=== PATIENT | female | born 1940 | race Caucasian/White ===

== ENCOUNTER 2017-06-22 13:40 | Inpatient (IN) | payer MEDICARE, OTHER ==
[2017-06-22] MEDS ORDERED: Furosemide 20 MG/2 ML VIAL IVPUSH ONE (14:39)
--- NOTE | 2017-06-22 15:11 | PCM.HP ---
H&P History of Present Illness - General Date of Service: 06/22/17 Admit Problem/Dx: Admission Diagnosis/Problem Admission Diagnosis/Problem Pneumonia COPD Pulmonary Edema Tachycardia Source of Information: Patient History Limitations: Reports: No Limitations - History of Present Illness Onset of Symptoms: Reports: Sudden Symptom Onset Date: 06/21/17 Duration of Symptoms: Reports: Hour(s): (started feeling some sore throat, racing heart and chest congestion and pressure last night) Location: Reports: Chest Quality: Reports: Burning (describes chest pressure with "burning low in my throat") Severity: Moderate Improves with: Reports: Rest Worsens with: Reports: Movement Context: Reports: Sick Contact (significant other hospitalized with pneumonia) Associated Symptoms: Reports: Cough, Fever/Chills, Shortness of Breath - Related Data Allergies/Adverse Reactions: Allergies Allergy/AdvReac Type Severity Reaction Status Date / Time iopamidol [From Isovue-M] Allergy Mild Rash Verified 12/27/15 12:09 Home Medications: Home Meds Aspirin 1 tab PO BID 12/27/15 [History] Ipratropium/Albuterol Sulfate [Iprat-Albut 0.5-3(2.5) mg/3 ml] 1 ml INH QID PRN 12/27/15 [History] Multivitamin [Multi-Vitamin Daily] 1 tab PO DAILY 12/27/15 [History] buPROPion [Wellbutrin XL] 150 mg PO DAILY 12/27/15 [History] Albuterol/Ipratropium [DuoNeb 3.0-0.5 MG/3 ML] 3 ml NEB Q4HRRT PRN #30 neb 12/30 [Rx] Furosemide [Lasix] 20 mg PO DAILY #30 tablet 12/31/15 [Rx] Spironolactone [Aldactone] 25 mg PO DAILY #30 tablet 12/31/15 [Rx] Past Medical History HEENT History: Reports: Impaired Vision Cardiovascular History: Reports: Blood Clots/VTE/DVT Respiratory History: Reports: COPD Other Respiratory History: Lung biopsy in 1998, non-maliginant Psychiatric History: Reports: Depression - Past Surgical History Cardiovascular Surgical History: Reports: Other (See Below) Social & Family History - Tobacco Use Smoking Status *Q: Former Smoker Years of Tobacco use: 45 Packs/Tins Daily: 1 Used Tobacco, but Quit: Yes Month Tobacco Last Used: 1 - Caffeine Use Caffeine Use: Reports: Coffee - Recreational Drug Use Recreational Drug Use: No H&P Review of Systems - Review of Systems: Review Of Systems: See Below General: Reports: No Symptoms, Fever, Chills HEENT: Reports: No Symptoms Pulmonary: Reports: Shortness of Breath, Cough Cardiovascular: Reports: Chest Pain ("pressure, congestion"), Palpitations ( "heart racing") Gastrointestinal: Reports: No Symptoms Genitourinary: Reports: No Symptoms Musculoskeletal: Reports: No Symptoms Skin: Reports: No Symptoms Psychiatric: Reports: No Symptoms Neurological: Reports: No Symptoms Hematologic/Lymphatic: Reports: No Symptoms Immunologic: Reports: No Symptoms Exam - Exam Exam: See Below - Vital Signs Vital Signs: Last Vital Signs Temp 99.6 F 06/22/17 14:31 Pulse 151 H 06/22/17 14:31 Resp BP 118/73 06/22/17 14:31 Pulse Ox 96 06/22/17 14:34 Weight: 171 lb 1.6 oz - Exam Quality Assessment: Supplemental Oxygen (continuous home oxygen) General: Alert, Oriented, 4 HEENT: EOMI, Hearing Intact, Mucosa Moist & [place] Neck: Supple, Trachea Midline, 2 Lungs: Decreased Breath Sounds, Crackles (faint bibasilar crackles) Cardiovascular: Tachycardia GI/Abdominal Exam: Normal Bowel Sounds, Soft, Non-Tender (Female) Exam: Deferred Rectal (Female) Exam: Deferred Back Exam: Normal Inspection Extremities: Pedal Edema (mild non-pitting) Neuro Extensive - Mental Status: Alert, Oriented x3, Normal Mood/Affect, Normal Cognition, Memory Intact Psychiatric: Alert, Normal Affect, Normal Mood EKG INTERPRETATION EKG Date: 06/22/17 Rhythm: Other (sinus tachycardia) [employer]: RAD-Right [employer] Deviation P-Wave: Present EKG Interpretation Comments: Troponin WNL at 0.005, tachycardia most likely secondary to pneumonia. *Q Meaningful Use (ADM) - VTE *Q VTE Criteria *Q: - Stroke *Q Stroke Criteria *Q: - AMI *Q AMI Criteria *Q: - Problem List (1) Pneumonia SNOMED Code(s): 279143744 ICD Code: J18.9 - PNEUMONIA, UNSPECIFIED ORGANISM Status: Acute Priority : High Current Visit: Yes Qualifiers: Pneumonia type: due to unspecified organism Laterality: bilateral Lung location: unspecified part of lung Qualified Code(s): J18.9 - Pneumonia, unspecified organism (2) Tachycardia SNOMED Code(s): 9068214 ICD Code: R00.0 - TACHYCARDIA, UNSPECIFIED Status: Acute Priority: High Current Visit: Yes Problem List Initiated/Reviewed/Updated: Yes Orders Last 24hrs: Active Orders 24 hr Category Date Time Status Patient Status [ADT] Routine ADT 06/22/17 14:31 Active Ambulate [RC] ASDIRECTED Care 06/22/17 14:31 Active Ambulate [RC] PER UNIT ROUTINE Care 06/22/17 14:35 Active Antiembolic Devices [RC] PER UNIT ROUTINE Care 06/22/17 14:36 Active Cardiac Monitoring [RC] CONTINUOUS Care 06/22/17 14:34 Active Height and Weight [RC] DAILY Care 06/22/17 14:31 Active Intake and Output [RC] QSHIFT Care 06/22/17 14:34 Active May Shower [RC] ASDIRECTED Care 06/22/17 14:31 Active Oxygen Therapy [RC] PRN Care 06/22/17 14:31 Active Pulse Oximetry [RC] PRN Care 06/22/17 14:34 Active Up ad Denise [RC] ASDIRECTED Care 06/22/17 14:31 Active VTE/DVT Education [RC] PER UNIT ROUTINE Care 06/22/17 14:31 Active Vital Signs [RC] Q4H Care 06/22/17 14:31 Active OT Evaluation and Treatment [CONS] Routine Cons 06/22/17 14:31 Active PT Evaluation and Treatment [CONS] Routine Cons 06/22/17 14:31 Active Regular Diet [DIET] Diet 06/22/17 Dinner Active Chest 2V [CR] Routine Exams 06/22/17 13:45 Taken C-REACTIVE PROTEIN [CHEM] AM Lab 06/23/17 05:11 Ordered C-REACTIVE PROTEIN [CHEM] AM Lab 06/24/17 05:11 Ordered C-REACTIVE PROTEIN [CHEM] AM Lab 06/25/17 05:11 Ordered CBC WITH AUTO DIFF [HEME] AM Lab 06/23/17 05:11 Ordered CBC WITH AUTO DIFF [HEME] AM Lab 06/24/17 05:11 Ordered CBC WITH AUTO DIFF [HEME] AM Lab 06/25/17 05:11 Ordered COMPREHENSIVE METABOLIC PN,CMP [CHEM] AM Lab 06/23/17 05:11 Ordered COMPREHENSIVE METABOLIC PN,CMP [CHEM] AM Lab 06/24/17 05:11 Ordered COMPREHENSIVE METABOLIC PN,CMP [CHEM] AM Lab 06/25/17 05:11 Ordered CULTURE BLOOD [BC] Stat Lab 06/22/17 14:36 Ordered CULTURE BLOOD [BC] Stat Lab 06/22/17 14:45 Received MYCOPLASMA IGM RAPID [MREF] Urgent Lab 06/22/17 14:45 Received PRO B-TYPE NATRIUR PEPT,BNPPRO [CHEM] DAILY Lab 06/23/17 05:11 Ordered PRO B-TYPE NATRIUR PEPT,BNPPRO [CHEM] DAILY Lab 06/24/17 05:11 Ordered PRO B-TYPE NATRIUR PEPT,BNPPRO [CHEM] DAILY Lab 06/25/17 05:11 Ordered TROPONIN I [CHEM] Routine Lab 06/23/17 05:11 Ordered Azithromycin [Zithromax] 500 mg Med 06/22/17 16:00 Active Sodium Chloride 0.9% [Normal Saline] 250 ml IV Q24H Furosemide [Lasix] Med 06/23/17 08:00 Active 20 mg IVPUSH DAILY Sodium Chloride 0.9% [Saline Flush] Med 06/22/17 14:31 Active 10 ml FLUSH ASDIRECTED PRN cefTAZidime [Fortaz] Med 06/22/17 16:00 Pending 1 gm IVPUSH Q8HR Antiembolic Hose [OM.PC] Per Unit Routine Oth 06/22/17 14:35 Ordered Blood Culture x2 Reflex Set [OM.PC] Stat Oth 06/22/17 14:31 Ordered Saline Lock Insert [OM.PC] Routine Oth 06/22/17 14:31 Ordered Resuscitation Status Routine Resus Stat 06/22/17 14:31 Ordered Medication Orders Ceftazidime (Fortaz) 1 gm IVPUSH Q8HR ALEJANDRO Furosemide (Lasix) 20 mg IVPUSH DAILY ALEJANDRO Azithromycin 500 mg/ Sodium (Chloride) 250 mls @ 250 mls/hr IV Q24H ALEJANDRO Sodium Chloride (Saline Flush) 10 ml FLUSH ASDIRECTED PRN PRN Reason: Keep Vein Open Assessment/Plan Comment:: 06-22-17 Salvatore Torres PA-C Initially evaluated at [facility] [place], where she had come in for c/o ST and chest congestion. She was found to be tachycardia with HR 150 bpm, and then did say she felt the point when her heart started racing last night. She thought she was perhaps coming down with pneumonia, because her SO has been sick for weeks and was finally admitted with pneumonia. Initially denied any CP but then did say her low throat feels like it's "burning" and she feels pressure and congestion in her chest. T99.7 in the clinic, O2 sats from 91-94% on oxygen ( continuous at home). After workup admitting IP to Dr. Hou with pneumonia, COPD exacerbation, pulmonary edema and tachycardia. Blood cultures x 2 ordered, as well as mycoplasma screen. One time dose of IV Lasix 20 mg now, then 20mg QAM to start tomorrow morning. IV Fortaz and Zithromax. Will monitor on telemetry, and repeat troponin and EKG in the am. Dr. Hou consulted at time of admit.
[2017-06-22] MEDS ORDERED: Metoprolol Tartrate 5 MG/5 ML SDV IVPUSH ONE (15:23)
[2017-06-22] MEDS: Sodium Chloride 0.9% 10 ML Syringe FLUSH PRN ×4 (15:35→17:24)
[2017-06-22] MEDS: cefTAZidime 1 GM Vial IVPUSH SCH (15:35)
[2017-06-22] MEDS ORDERED: Azithromycin 500 MG in Sodium Chloride 0.9% 250 ML IV SCH (16:00)
[2017-06-22] MEDS ORDERED: Albuterol 0.083% 2.5 MG/3 ML Neb Soln NEB PRN (18:00)
[2017-06-22] MEDS: Aspirin 325 MG Tab PO SCH (18:58)
[2017-06-22] MEDS ORDERED: Metoprolol Succinate 25 MG Tab.ER PO SCH (20:00)
[2017-06-22] MEDS: Albuterol/Ipratropium 3.0-0.5 MG/3 ML Neb Soln NEB SCH (20:31)
[2017-06-22] MEDS: Sodium Chloride 0.9% 10 ML Syringe FLUSH SCH (20:32)
[2017-06-23] MEDS: Sodium Chloride 0.9% 10 ML Syringe FLUSH PRN ×3 (01:32→13:16)
[2017-06-23] MEDS: cefTAZidime 1 GM Vial IVPUSH SCH ×3 (01:32→19:36)
[2017-06-23 07:35] LABS: CHLORIDE,CL 99 mmol/L (98-107); SODIUM,NA 136 mmol/L (136-145)
[2017-06-23] MEDS: Furosemide 20 MG/2 ML VIAL IVPUSH SCH (08:34)
[2017-06-23] MEDS: Albuterol/Ipratropium 3.0-0.5 MG/3 ML Neb Soln NEB SCH ×2 (08:34→13:02)
[2017-06-23] MEDS: Sodium Chloride 0.9% 10 ML Syringe FLUSH SCH ×2 (08:34→19:37)
[2017-06-23] MEDS: Aspirin 325 MG Tab PO SCH (08:34)
[2017-06-23] MEDS: Spironolactone 25 MG Tab PO SCH (08:34)
[2017-06-23] MEDS: Azithromycin 500 MG in Sodium Chloride 0.9% 250 ML IV SCH (11:30)
[2017-06-23] MEDS ORDERED: Metoprolol Tartrate 5 MG/5 ML SDV IVPUSH ONE (12:00)
[2017-06-23] MEDS ORDERED: Digoxin 500 MCG/2 ML Amp IVPUSH ONE ×2 (12:15→20:00)
[2017-06-23] MEDS ORDERED: Albuterol/Ipratropium 3.0-0.5 MG/3 ML Neb Soln NEB PRN (12:25)
[2017-06-23] MEDS ORDERED: Enoxaparin 40 MG/0.4 ML Syringe SUBCUT SCH (12:30)
[2017-06-23] MEDS ORDERED: Enoxaparin 30 MG/0.3 ML Syringe SUBCUT SCH (12:30)
[2017-06-23] MEDS: Sodium Chloride 0.9% Inhalation Soln 3 ML Neb INH SCH ×2 (16:14→19:37)
--- NOTE | 2017-06-23 17:53 | PCM.PN ---
- General Info Date of Service: 06/23/17 Admission Dx/Problem (Free Text): Admission Diagnosis/Problem Admission Diagnosis/Problem Pneumonia COPD Pulmonary Edema Tachycardia Functional Status: Reports: Pain Controlled - Review of Systems General: Reports: Fever HEENT: Reports: No Symptoms Pulmonary: Reports: No Symptoms Cardiovascular: Reports: No Symptoms Gastrointestinal: Reports: No Symptoms Genitourinary: Reports: No Symptoms Musculoskeletal: Reports: No Symptoms Skin: Reports: No Symptoms Neurological: Reports: No Symptoms Psychiatric: Reports: No Symptoms - Patient Data Vitals - Most Recent: Last Vital Signs Temp 97.7 F 06/23/17 16:53 Pulse 115 H 06/23/17 16:00 Resp 28 H 06/23/17 16:00 BP 110/68 06/23/17 16:00 Pulse Ox 95 06/23/17 16:00 Weight - Most Recent: 171 lb 1.612 oz I&O - Last 24 Hours: Intake & Output 06/23/17 06/23/17 06/23/17 06:59 14:59 22:59 Intake Total 1690 Balance 1690 Lab Results Last 24 Hours: Laboratory Results - last 24 hr 06/23/17 06/23/17 Range/Units 06:45 06:45 WBC 7.4 (4.0-10.2) K/uL RBC 4.50 (3.77-5.09) M/uL Hgb 13.0 D (11.7-15.5) g/dL Hct 39.2 (34.0-46.0) % MCV 87.1 D (84.0-98.0) fL MCH 28.9 (28.2-33.3) pg MCHC 33.2 (31.7-36.0) g/dL RDW 14.0 (11.2-14.1) % Plt Count 186 (150-350) K/uL Neut % (Auto) 73.2 (45.0-80.0) % Lymph % (Auto) 15.2 (10.0-50.0) % [place] % (Auto) 11.1 (2.0-14.0) % Eos % (Auto) 0.4 (0.0-5.0) % Baso % (Auto) 0.1 (0.0-2.0) % Neut # (Auto) 5.42 (1.40-7.00) K/uL Lymph # (Auto) 1.13 (0.50-3.50) K/uL [place] # (Auto) 0.82 (0.00-1.00) K/uL Eos # (Auto) 0.03 (0.00-0.50) K/uL Baso # (Auto) 0.01 (0.00-0.20) K/uL Sodium 136 (136-145) mmol/L Potassium 3.7 (3.5-5.1) mmol/L Chloride 99 (98-107) mmol/L Carbon Dioxide 26.9 (21.0-32.0) mmol/L BUN 15 (7-18) mg/dL Creatinine 0.83 (0.51-1.17) mg/dL Est Cr Clr Drug Dosing 53.42 mL/min Estimated GFR (MDRD) > 60 mL/min Glucose 106 (74-106) mg/dL Calcium 8.7 (8.5-10.1) mg/dL Total Bilirubin 0.5 (0.2-1.0) mg/dL AST 18 (15-37) U/L ALT 15 (12-78) U/L Alkaline Phosphatase 57 (46-116) IU/L Troponin I 0.010 (0.000-0.056) ng/mL C-Reactive Protein 2.8 H (<=0.9) mg/dL NT-Pro-B Natriuret Pep 4443 H (0-125) pg/mL Total Protein 7.1 (6.4-8.2) g/dL Albumin 3.2 L (3.4-5.0) g/dL Maksim Results Last 24 Hours: Microbiology 06/22/17 15:08 Aerobic Blood Culture - Preliminary Blood - Venous - Lab Draw NO GROWTH AFTER 1 DAY Anaerobic Blood Culture - Preliminary NO GROWTH AFTER 1 DAY 06/22/17 14:45 Aerobic Blood Culture - Preliminary Blood - Venous NO GROWTH AFTER 1 DAY Anaerobic Blood Culture - Preliminary NO GROWTH AFTER 1 DAY Med Orders - Current: Current Medications Albuterol (Proventil Neb Soln) 2.5 mg NEB Q4HRRT PRN PRN Reason: Dyspnea Last Admin: 06/23/17 01:44 Dose: 2.5 mg Albuterol/Ipratropium (Duoneb 3.0-0.5 Mg/3 Ml) 3 ml NEB QIDRT PRN PRN Reason: Dyspnea Aspirin (Aspirin) 81 mg PO DAILY [facility] Ceftazidime (Fortaz) 1 gm IVPUSH Q12HR [facility] Digoxin (Lanoxin) 250 mcg IVPUSH ONETIME ONE Stop: 06/23/17 20:01 Furosemide (Lasix) 20 mg IVPUSH DAILY [facility] Last Admin: 06/23/17 08:34 Dose: 20 mg Azithromycin 500 mg/ Sodium (Chloride) 250 mls @ 250 mls/hr IV DAILY@1200 [facility] Stop: 06/24/17 12:59 Last Admin: 06/23/17 11:30 Dose: 250 mls/hr Sodium Chloride (Saline Flush) 10 ml FLUSH ASDIRECTED PRN PRN Reason: Keep Vein Open Last Admin: 06/23/17 13:16 Dose: 10 ml Sodium Chloride (Saline Flush) 10 ml FLUSH Q12HR [facility] Last Admin: 06/23/17 08:34 Dose: 10 ml Sodium Chloride (Sodium Chloride 0.9%) 3 ml INH QIDRT [facility] Last Admin: 06/23/17 16:14 Dose: 3 ml Spironolactone (Aldactone) 25 mg PO DAILY [facility] Last Admin: 06/23/17 08:34 Dose: 25 mg Warfarin Sodium (Coumadin) 7.5 mg PO ONETIME ONE Stop: 06/23/17 20:01 Discontinued Medications Albuterol/Ipratropium (Duoneb 3.0-0.5 Mg/3 Ml) 3 ml NEB QIDRT [facility] Last Admin: 06/23/17 13:02 Dose: Not Given Aspirin (Aspirin) 325 mg PO BID [facility] Last Admin: 06/23/17 08:34 Dose: 325 mg Ceftazidime (Fortaz) 1 gm IVPUSH Q8HR [facility] Last Admin: 06/23/17 08:34 Dose: 1 gm Digoxin (Lanoxin) 500 mcg IVPUSH ONETIME ONE Stop: 06/23/17 12:16 Last Admin: 06/23/17 13:15 Dose: 500 mcg Enoxaparin Sodium (Lovenox) 30 mg SUBCUT DAILY [facility] Enoxaparin Sodium (Lovenox) 40 mg SUBCUT DAILY [facility] Last Admin: 06/23/17 13:16 Dose: 40 mg Furosemide (Lasix) 20 mg IVPUSH ONETIME ONE Stop: 06/22/17 14:40 Last Admin: 06/22/17 15:41 Dose: 20 mg Azithromycin 500 mg/ Sodium (Chloride) 250 mls @ 250 mls/hr IV Q24H [facility] Last Admin: 06/22/17 15:55 Dose: 250 mls/hr Metoprolol Succinate (Toprol Xl) 25 mg PO BEDTIME [facility] Last Admin: 06/22/17 20:31 Dose: 25 mg Metoprolol Tartrate (Lopressor) 5 mg IVPUSH ONETIME ONE Stop: 06/22/17 15:24 Last Admin: 06/22/17 15:48 Dose: 5 mg Metoprolol Tartrate (Lopressor) 5 mg IVPUSH ONETIME ONE Stop: 06/23/17 12:01 Last Admin: 06/23/17 13:01 Dose: Not Given - Exam Quality Assessment: Supplemental Oxygen General: Alert, Cooperative, No Acute Distress HEENT: Mucous Membr. Moist/[place] Neck: Trachea Midline, No JVD Lungs: Normal Respiratory Effort, Decreased Breath Sounds Cardiovascular: Irregular Rhythm, Tachycardia GI/Abdominal Exam: Soft, Non-Tender, No Distention (Female) Exam: Deferred Back Exam: Normal Inspection Extremities: Normal Inspection, Non-Tender, No Pedal Edema Skin: Warm, Dry, Intact Neurological: No New Focal Deficit Psy/Mental Status: Alert, Normal Affect, Normal Mood - Problem List & Annotations (1) Paroxysmal atrial fibrillation with rapid ventricular response SNOMED Code(s): 510576875 Code(s): I48.0 - PAROXYSMAL ATRIAL FIBRILLATION Status: Acute Priority: High Current Visit: Yes (2) Pneumonia SNOMED Code(s): 832802118 Code(s): J18.9 - PNEUMONIA, UNSPECIFIED ORGANISM Status: Acute Priority: High Current Visit: Yes Qualifiers: Pneumonia type: due to unspecified organism Laterality: bilateral Lung location: unspecified part of lung Qualified Code(s): J18.9 - Pneumonia, unspecified organism (3) Tachycardia SNOMED Code(s): 5683521 Code(s): R00.0 - TACHYCARDIA, UNSPECIFIED Status: Acute Priority: High Current Visit: Yes (4) Cardiomegaly SNOMED Code(s): 0889538 Code(s): I51.7 - CARDIOMEGALY Status: Acute Priority: High Current Visit: No (5) Hypoxia SNOMED Code(s): 549593015 Code(s): R09.02 - HYPOXEMIA Status: Acute Priority: High Current Visit : No (6) Pulmonary edema SNOMED Code(s): 72270389 Code(s): J81.1 - CHRONIC PULMONARY EDEMA Status: Acute Priority: High Current Visit: No Qualifiers: Chronicity: acute Qualified Code(s): J81.0 - Acute pulmonary edema (7) COPD (chronic obstructive pulmonary disease) SNOMED Code(s): 79615308 Code(s): J44.9 - CHRONIC OBSTRUCTIVE PULMONARY DISEASE, UNSPECIFIED Status : Chronic Priority: Medium Current Visit: No Qualifiers: COPD type: unspecified COPD Qualified Code(s): J44.9 - Chronic obstructive pulmonary disease, unspecified - Problem List Review Problem List Initiated/Reviewed/Updated: Yes - My Orders Last 24 Hours: My Active Orders 06/22/17 18:00 RT Aerosol Therapy [RC] ASDIRECTED Albuterol [Proventil Neb Soln] 2.5 mg NEB Q4HRRT PRN 06/22/17 20:00 RT Aerosol Therapy [RC] 08,12,16,20 Sodium Chloride 0.9% [Saline Flush] 10 ml FLUSH Q12HR 06/23/17 08:00 Spironolactone [Aldactone] 25 mg PO DAILY 06/23/17 12:00 Azithromycin [Zithromax] 500 mg Sodium Chloride 0.9% [Normal Saline] 250 ml IV DAILY@1200 06/23/17 12:25 Albuterol/Ipratropium [DuoNeb 3.0-0.5 MG/3 ML] 3 ml NEB QIDRT PRN 06/23/17 16:00 Sodium Chloride 0.9% 3 ml INH QIDRT 06/23/17 20:00 Digoxin [Lanoxin] 250 mcg IVPUSH ONETIME ONE Warfarin [Coumadin] 7.5 mg PO ONETIME ONE cefTAZidime [Fortaz] 1 gm IVPUSH Q12HR 06/24/17 05:11 EKG Documentation Completion [RC] ASDIRECTED DIGOXIN [CHEM] Routine INR,PT,PROTHROMBIN TIME [COAG] Routine PTT,PARTIAL THROMBOPLSTIN TIME [COAG] Routine EKG 12 Lead [EK] Routine 06/24/17 08:00 Aspirin 81 mg PO DAILY - Plan Plan:: 06-22-17 Salvatore Torres PA-C [place] [facility] [place] had come in for c/o ST and chest congestion. She was found to be tachycardia with HR 150 bpm, and then did say she felt the point when her heart started racing last night. She thought she was perhaps coming down with pneumonia, because her SO has been sick for weeks and was finally admitted with pneumonia. Initially denied any CP but then did say her low throat feels like it's "burning" and she feels pressure and congestion in her chest. T99.7 in the clinic, O2 sats from 91-94% on oxygen ( continuous at home). After workup admitting IP to Dr. Hou with pneumonia, COPD exacerbation, pulmonary edema and tachycardia. Blood cultures x 2 ordered, as well as mycoplasma screen. One time dose of IV Lasix 20 mg now, then 20mg QAM to start tomorrow morning. IV Fortaz and Zithromax. Will monitor on telemetry, and repeat troponin and EKG in the am. Dr. Hou consulted at time of admit. 06/23/17 Ameya Sanchez MD Feels okay. Elevated temperature this afternoon. Continue IV antibiotics. Digitalizing for atrial fibrillation with RVR and start anticoagulation.
[2017-06-23] MEDS ORDERED: Warfarin 2.5 MG Tab PO ONE (20:00)
[2017-06-23] MEDS ORDERED: Acetaminophen 325 MG Tab PO PRN (20:03)
[2017-06-24 07:22] LABS: CHLORIDE,CL 101 mmol/L (98-107); SODIUM,NA 139 mmol/L (136-145)
[2017-06-24] MEDS ORDERED: Aspirin 325 MG Tab PO SCH (08:00)
[2017-06-24] MEDS: Furosemide 20 MG/2 ML VIAL IVPUSH SCH (08:39)
[2017-06-24] MEDS: Spironolactone 25 MG Tab PO SCH (08:39)
[2017-06-24] MEDS: Sodium Chloride 0.9% 10 ML Syringe FLUSH SCH ×2 (08:40→20:02)
[2017-06-24] MEDS: Sodium Chloride 0.9% Inhalation Soln 3 ML Neb INH SCH ×4 (08:40→20:02)
[2017-06-24] MEDS: cefTAZidime 1 GM Vial IVPUSH SCH ×2 (08:40→20:02)
[2017-06-24] MEDS: Aspirin 81 MG Tab.Chew PO SCH (08:54)
[2017-06-24] MEDS: Sodium Chloride 0.9% 10 ML Syringe FLUSH PRN ×2 (12:12→13:43)
[2017-06-24] MEDS: Azithromycin 500 MG in Sodium Chloride 0.9% 250 ML IV SCH (12:12)
[2017-06-24] MEDS ORDERED: Digoxin 500 MCG/2 ML Amp IVPUSH ONE (13:00)
[2017-06-24] MEDS ORDERED: Warfarin 2.5 MG Tab PO ONE (14:00)
--- NOTE | 2017-06-24 14:13 | PCM.PN ---
- General Info Date of Service: 06/24/17 Admission Dx/Problem (Free Text): Admission Diagnosis/Problem Admission Diagnosis/Problem Pneumonia COPD Pulmonary Edema Tachycardia Functional Status: Reports: Pain Controlled - Review of Systems General: Reports: Fever HEENT: Reports: No Symptoms Pulmonary: Reports: Cough Cardiovascular: Reports: Palpitations Gastrointestinal: Reports: No Symptoms Genitourinary: Reports: No Symptoms Musculoskeletal: Reports: No Symptoms Skin: Reports: No Symptoms Neurological: Reports: No Symptoms Psychiatric: Reports: No Symptoms - Patient Data Vitals - Most Recent: Last Vital Signs Temp 97.5 F 06/24/17 11:54 Pulse 116 H 06/24/17 11:54 Resp 20 06/24/17 11:54 BP 114/67 06/24/17 11:54 Pulse Ox 94 L 06/24/17 11:54 Weight - Most Recent: 169 lb 8 oz I&O - Last 24 Hours: Intake & Output 06/23/17 06/24/17 06/24/17 22:59 06:59 14:59 Intake Total 455 082 0540 Output Total 750 Balance 480 360 950 Lab Results Last 24 Hours: Laboratory Results - last 24 hr 06/24/17 06/24/17 06/24/17 Range/Units 06:22 06:22 06:22 WBC 5.5 (4.0-10.2) K/uL RBC 4.66 (3.77-5.09) M/uL Hgb 13.5 (11.7-15.5) g/dL Hct 40.8 (34.0-46.0) % MCV 87.6 (84.0-98.0) fL MCH 29.0 (28.2-33.3) pg MCHC 33.1 (31.7-36.0) g/dL RDW 14.0 (11.2-14.1) % Plt Count 179 (150-350) K/uL Neut % (Auto) 51.3 (45.0-80.0) % Lymph % (Auto) 24.5 (10.0-50.0) % [place] % (Auto) 15.8 H (2.0-14.0) % Eos % (Auto) 8.2 H (0.0-5.0) % Baso % (Auto) 0.2 (0.0-2.0) % Neut # (Auto) 2.84 (1.40-7.00) K/uL Lymph # (Auto) 1.35 (0.50-3.50) K/uL [place] # (Auto) 0.87 (0.00-1.00) K/uL Eos # (Auto) 0.45 (0.00-0.50) K/uL Baso # (Auto) 0.01 (0.00-0.20) K/uL PT 10.8 (9.8-11.7) SEC INR 1.0 APTT 26.5 (22.1-29.8) SEC Sodium 139 (136-145) mmol/L Potassium 3.5 (3.5-5.1) mmol/L Chloride 101 (98-107) mmol/L Carbon Dioxide 28.0 (21.0-32.0) mmol/L BUN 10 (7-18) mg/dL Creatinine 0.68 (0.51-1.17) mg/dL Est Cr Clr Drug Dosing 65.21 mL/min Estimated GFR (MDRD) > 60 mL/min Glucose 103 (74-106) mg/dL Calcium 8.7 (8.5-10.1) mg/dL Total Bilirubin 0.6 (0.2-1.0) mg/dL AST 20 (15-37) U/L ALT 13 (12-78) U/L Alkaline Phosphatase 57 (46-116) IU/L C-Reactive Protein 2.8 H (<=0.9) mg/dL NT-Pro-B Natriuret Pep 3170 H (0-125) pg/mL Total Protein 7.1 (6.4-8.2) g/dL Albumin 3.1 L (3.4-5.0) g/dL TSH, Ultra Sensitive 3.313 (0.358-3.740) mIU/mL Digoxin 1.04 (0.90-2.00) ng/mL Maksim Results Last 24 Hours: Microbiology 06/22/17 14:45 Mycoplasma Serology - Final Blood 06/22/17 15:08 Aerobic Blood Culture - Preliminary Blood - Venous - Lab Draw NO GROWTH AFTER 1 DAY Anaerobic Blood Culture - Preliminary NO GROWTH AFTER 1 DAY 06/22/17 14:45 Aerobic Blood Culture - Preliminary Blood - Venous NO GROWTH AFTER 1 DAY Anaerobic Blood Culture - Preliminary NO GROWTH AFTER 1 DAY Med Orders - Current: Current Medications Acetaminophen (Tylenol) 650 mg PO Q4H PRN PRN Reason: Pain/Fever Last Admin: 06/23/17 20:11 Dose: 650 mg Albuterol (Proventil Neb Soln) 2.5 mg NEB Q4HRRT PRN PRN Reason: Dyspnea Last Admin: 06/23/17 01:44 Dose: 2.5 mg Albuterol/Ipratropium (Duoneb 3.0-0.5 Mg/3 Ml) 3 ml NEB QIDRT PRN PRN Reason: Dyspnea Aspirin (Aspirin) 81 mg PO DAILY [facility] Last Admin: 06/24/17 08:54 Dose: 81 mg Ceftazidime (Fortaz) 1 gm IVPUSH Q12HR [facility] Last Admin: 06/24/17 08:40 Dose: 1 gm Furosemide (Lasix) 20 mg IVPUSH DAILY [facility] Last Admin: 06/24/17 08:39 Dose: 20 mg Metoprolol Tartrate (Lopressor) 12.5 mg PO Q12HR [facility] Sodium Chloride (Saline Flush) 10 ml FLUSH ASDIRECTED PRN PRN Reason: Keep Vein Open Last Admin: 06/24/17 13:43 Dose: 10 ml Sodium Chloride (Saline Flush) 10 ml FLUSH Q12HR [facility] Last Admin: 06/24/17 08:40 Dose: 10 ml Sodium Chloride (Sodium Chloride 0.9%) 3 ml INH QIDRT [facility] Last Admin: 06/24/17 12:12 Dose: 3 ml Spironolactone (Aldactone) 25 mg PO DAILY [facility] Last Admin: 06/24/17 08:39 Dose: 25 mg Discontinued Medications Albuterol/Ipratropium (Duoneb 3.0-0.5 Mg/3 Ml) 3 ml NEB QIDRT [facility] Last Admin: 06/23/17 13:02 Dose: Not Given Aspirin (Aspirin) 325 mg PO BID [facility] Last Admin: 06/23/17 08:34 Dose: 325 mg Aspirin (Aspirin) 81 mg PO DAILY [facility] Last Admin: 06/24/17 08:54 Dose: Not Given Ceftazidime (Fortaz) 1 gm IVPUSH Q8HR [facility] Last Admin: 06/23/17 08:34 Dose: 1 gm Digoxin (Lanoxin) 500 mcg IVPUSH ONETIME ONE Stop: 06/23/17 12:16 Last Admin: 06/23/17 13:15 Dose: 500 mcg Digoxin (Lanoxin) 250 mcg IVPUSH ONETIME ONE Stop: 06/23/17 20:01 Last Admin: 06/23/17 19:37 Dose: 250 mcg Digoxin (Lanoxin) 125 mcg IVPUSH ONETIME ONE Stop: 06/24/17 13:01 Last Admin: 06/24/17 13:47 Dose: 125 mcg Enoxaparin Sodium (Lovenox) 30 mg SUBCUT DAILY [facility] Enoxaparin Sodium (Lovenox) 40 mg SUBCUT DAILY [facility] Last Admin: 06/23/17 13:16 Dose: 40 mg Furosemide (Lasix) 20 mg IVPUSH ONETIME ONE Stop: 06/22/17 14:40 Last Admin: 06/22/17 15:41 Dose: 20 mg Azithromycin 500 mg/ Sodium (Chloride) 250 mls @ 250 mls/hr IV Q24H [facility] Last Admin: 06/22/17 15:55 Dose: 250 mls/hr Azithromycin 500 mg/ Sodium (Chloride) 250 mls @ 250 mls/hr IV DAILY@1200 [facility] Stop: 06/24/17 12:59 Last Admin: 06/24/17 12:12 Dose: 250 mls/hr Metoprolol Succinate (Toprol Xl) 25 mg PO BEDTIME [facility] Last Admin: 06/22/17 20:31 Dose: 25 mg Metoprolol Tartrate (Lopressor) 5 mg IVPUSH ONETIME ONE Stop: 06/22/17 15:24 Last Admin: 06/22/17 15:48 Dose: 5 mg Metoprolol Tartrate (Lopressor) 5 mg IVPUSH ONETIME ONE Stop: 06/23/17 12:01 Last Admin: 06/23/17 13:01 Dose: Not Given Warfarin Sodium (Coumadin) 7.5 mg PO ONETIME ONE Stop: 06/23/17 20:01 Last Admin: 06/23/17 19:36 Dose: 7.5 mg Warfarin Sodium (Coumadin) 7.5 mg PO ONETIME ONE Stop: 06/24/17 14:01 Last Admin: 06/24/17 13:48 Dose: 7.5 mg - Exam Quality Assessment: Supplemental Oxygen, DVT Prophylaxis (starting coumadin) General: Alert, Cooperative, No Acute Distress HEENT: Mucous Membr. Moist/[place] Neck: Trachea Midline, No JVD Lungs: Normal Respiratory Effort, Decreased Breath Sounds Cardiovascular: Irregular Rhythm, Tachycardia GI/Abdominal Exam: Soft, Non-Tender, No Distention (Female) Exam: Deferred Back Exam: Normal Inspection Extremities: Normal Inspection, Non-Tender, No Pedal Edema Skin: Warm, Dry, Intact Neurological: No New Focal Deficit Psy/Mental Status: Alert, Normal Affect, Normal Mood - Problem List & Annotations (1) Paroxysmal atrial fibrillation with rapid ventricular response SNOMED Code(s): 750049895 Code(s): I48.0 - PAROXYSMAL ATRIAL FIBRILLATION Status: Acute Priority: High Current Visit: Yes (2) Pneumonia SNOMED Code(s): 223400361 Code(s): J18.9 - PNEUMONIA, UNSPECIFIED ORGANISM Status: Acute Priority: High Current Visit: Yes Qualifiers: Pneumonia type: due to unspecified organism Laterality: bilateral Lung location: unspecified part of lung Qualified Code(s): J18.9 - Pneumonia, unspecified organism (3) Tachycardia SNOMED Code(s): 4816959 Code(s): R00.0 - TACHYCARDIA, UNSPECIFIED Status: Acute Priority: High Current Visit: Yes (4) Cardiomegaly SNOMED Code(s): 4562244 Code(s): I51.7 - CARDIOMEGALY Status: Acute Priority: High Current Visit: No (5) Hypoxia SNOMED Code(s): 291215606 Code(s): R09.02 - HYPOXEMIA Status: Acute Priority: High Current Visit : No (6) Pulmonary edema SNOMED Code(s): 80526239 Code(s): J81.1 - CHRONIC PULMONARY EDEMA Status: Acute Priority: High Current Visit: No Qualifiers: Chronicity: acute Qualified Code(s): J81.0 - Acute pulmonary edema (7) COPD (chronic obstructive pulmonary disease) SNOMED Code(s): 36372621 Code(s): J44.9 - CHRONIC OBSTRUCTIVE PULMONARY DISEASE, UNSPECIFIED Status : Chronic Priority: Medium Current Visit: No Qualifiers: COPD type: unspecified COPD Qualified Code(s): J44.9 - Chronic obstructive pulmonary disease, unspecified - Problem List Review Problem List Initiated/Reviewed/Updated: Yes - My Orders Last 24 Hours: My Active Orders 06/23/17 16:00 Sodium Chloride 0.9% 3 ml INH QIDRT 02/28/18 20:00 cefTAZidime [Fortaz] 1 gm IVPUSH Q12HR 06/23/17 20:03 Acetaminophen [Tylenol] 650 mg PO Q4H PRN 06/24/17 05:11 EKG Documentation Completion [RC] ASDIRECTED 06/24/17 09:00 Aspirin 81 mg PO DAILY 06/24/17 20:00 Metoprolol Tartrate [Lopressor] 12.5 mg PO Q12HR - Plan Plan:: 06-22-17 Salvatore Torres PA-C Initially evaluated at [facility], where she had come in for c/o ST and chest congestion. She was found to be tachycardia with HR 150 bpm, and then did say she felt the point when her heart started racing last night. She thought she was perhaps coming down with pneumonia, because her SO has been sick for weeks and was finally admitted with pneumonia. Initially denied any CP but then did say her low throat feels like it's "burning" and she feels pressure and congestion in her chest. T99.7 in the clinic, O2 sats from 91-94% on oxygen ( continuous at home). After workup admitting IP to Dr. Hou with pneumonia, COPD exacerbation, pulmonary edema and tachycardia. Blood cultures x 2 ordered, as well as mycoplasma screen. One time dose of IV Lasix 20 mg now, then 20mg QAM to start tomorrow morning. IV Fortaz and Zithromax. Will monitor on telemetry, and repeat troponin and EKG in the am. Dr. Hou consulted at time of admit. 06/23/17 Ameya Sanchez MD Feels okay. Elevated temperature this afternoon. Continue IV antibiotics. Digitalizing for atrial fibrillation with RVR and start anticoagulation. 06/24/17 Ameya Sanchez MD Soaking sweat last night. Today still in atrial fibrillation with RVR (high 160) . Continue medical therapy.
[2017-06-24] MEDS: Metoprolol Tartrate 25 MG Tab PO SCH (20:02)
[2017-06-25 07:46] LABS: CHLORIDE,CL 102 mmol/L (98-107); SODIUM,NA 141 mmol/L (136-145)
[2017-06-25] MEDS: Aspirin 81 MG Tab.Chew PO SCH (08:49)
[2017-06-25] MEDS: Spironolactone 25 MG Tab PO SCH (08:49)
[2017-06-25] MEDS: Metoprolol Tartrate 25 MG Tab PO SCH (08:49)
[2017-06-25] MEDS: Furosemide 20 MG/2 ML VIAL IVPUSH SCH (08:50)
[2017-06-25] MEDS: Sodium Chloride 0.9% 10 ML Syringe FLUSH SCH (08:51)
[2017-06-25] MEDS: cefTAZidime 1 GM Vial IVPUSH SCH (08:51)
[2017-06-25] MEDS: Sodium Chloride 0.9% Inhalation Soln 3 ML Neb INH SCH ×2 (08:53→12:12)
[2017-06-25] MEDS ORDERED: Azithromycin 250 MG Tab PO ONE (13:30)
[2017-06-25 13:37] VITALS: BP 101/59
[2017-06-25] MEDS ORDERED: Warfarin 5 MG Tab PO ONE (14:17)
--- NOTE | 2017-06-25 14:41 | PCM.PN ---
- General Info Date of Service: 06/25/17 Admission Dx/Problem (Free Text): Admission Diagnosis/Problem Admission Diagnosis/Problem Pneumonia COPD Pulmonary Edema Tachycardia Functional Status: Reports: Pain Controlled - Review of Systems General: Reports: No Symptoms HEENT: Reports: No Symptoms Pulmonary: Reports: No Symptoms Cardiovascular: Reports: No Symptoms Gastrointestinal: Reports: No Symptoms Genitourinary: Reports: No Symptoms Musculoskeletal: Reports: No Symptoms Skin: Reports: No Symptoms Neurological: Reports: No Symptoms Psychiatric: Reports: No Symptoms - Patient Data Vitals - Most Recent: Last Vital Signs Temp 97.9 F 06/25/17 12:00 Pulse 85 06/25/17 08:49 Resp 16 06/25/17 12:00 BP 101/59 L 06/25/17 12:00 Pulse Ox 96 06/25/17 14:00 Weight - Most Recent: 170 lb 11.2 oz I&O - Last 24 Hours: Intake & Output 06/24/17 06/25/17 06/25/17 22:59 06:59 14:59 Intake Total 1090 2880 Output Total 1700 1000 1200 Balance -610 -1000 1680 Lab Results Last 24 Hours: Laboratory Results - last 24 hr 06/25/17 06/25/17 06/25/17 Range/Units 07:00 07:00 13:40 WBC 5.7 (4.0-10.2) K/uL RBC 4.49 (3.77-5.09) M/uL Hgb 12.9 (11.7-15.5) g/dL Hct 39.1 (34.0-46.0) % MCV 87.1 (84.0-98.0) fL MCH 28.7 (28.2-33.3) pg MCHC 33.0 (31.7-36.0) g/dL RDW 13.6 (11.2-14.1) % Plt Count 175 (150-350) K/uL Neut % (Auto) 31.9 L (45.0-80.0) % Lymph % (Auto) 42.3 (10.0-50.0) % [place] % (Auto) 15.9 H (2.0-14.0) % Eos % (Auto) 9.6 H (0.0-5.0) % Baso % (Auto) 0.3 (0.0-2.0) % Neut # (Auto) 1.82 (1.40-7.00) K/uL Lymph # (Auto) 2.42 (0.50-3.50) K/uL [place] # (Auto) 0.91 (0.00-1.00) K/uL Eos # (Auto) 0.55 H (0.00-0.50) K/uL Baso # (Auto) 0.02 (0.00-0.20) K/uL INR 1.2 Sodium 141 (136-145) mmol/L Potassium 3.5 (3.5-5.1) mmol/L Chloride 102 (98-107) mmol/L Carbon Dioxide 33.2 H (21.0-32.0) mmol/L BUN 10 (7-18) mg/dL Creatinine 0.76 (0.51-1.17) mg/dL Est Cr Clr Drug Dosing 58.34 mL/min Estimated GFR (MDRD) > 60 mL/min Glucose 99 (74-106) mg/dL Calcium 8.7 (8.5-10.1) mg/dL Total Bilirubin 0.3 (0.2-1.0) mg/dL AST 17 (15-37) U/L ALT 13 (12-78) U/L Alkaline Phosphatase 58 (46-116) IU/L C-Reactive Protein 2.6 H (<=0.9) mg/dL NT-Pro-B Natriuret Pep 2342 H (0-125) pg/mL Total Protein 6.9 (6.4-8.2) g/dL Albumin 3.0 L (3.4-5.0) g/dL Maksim Results Last 24 Hours: Microbiology 06/22/17 15:08 Aerobic Blood Culture - Preliminary Blood - Venous - Lab Draw NO GROWTH AFTER 2 DAYS Anaerobic Blood Culture - Preliminary NO GROWTH AFTER 2 DAYS 06/22/17 14:45 Aerobic Blood Culture - Preliminary Blood - Venous NO GROWTH AFTER 2 DAYS Anaerobic Blood Culture - Preliminary NO GROWTH AFTER 2 DAYS 06/22/17 14:45 Mycoplasma Serology - Final Blood Med Orders - Current: Current Medications Acetaminophen (Tylenol) 650 mg PO Q4H PRN PRN Reason: Pain/Fever Last Admin: 06/23/17 20:11 Dose: 650 mg Albuterol (Proventil Neb Soln) 2.5 mg NEB Q4HRRT PRN PRN Reason: Dyspnea Last Admin: 06/23/17 01:44 Dose: 2.5 mg Albuterol/Ipratropium (Duoneb 3.0-0.5 Mg/3 Ml) 3 ml NEB QIDRT PRN PRN Reason: Dyspnea Aspirin (Aspirin) 81 mg PO DAILY [facility] Last Admin: 06/25/17 08:49 Dose: 81 mg Ceftazidime (Fortaz) 1 gm IVPUSH Q12HR [facility] Last Admin: 06/25/17 08:51 Dose: 1 gm Furosemide (Lasix) 20 mg IVPUSH DAILY [facility] Last Admin: 06/25/17 08:50 Dose: 20 mg Metoprolol Tartrate (Lopressor) 12.5 mg PO Q12HR [facility] Last Admin: 06/25/17 08:49 Dose: 12.5 mg Sodium Chloride (Saline Flush) 10 ml FLUSH ASDIRECTED PRN PRN Reason: Keep Vein Open Last Admin: 06/24/17 13:43 Dose: 10 ml Sodium Chloride (Saline Flush) 10 ml FLUSH Q12HR [facility] Last Admin: 06/25/17 08:51 Dose: 10 ml Sodium Chloride (Sodium Chloride 0.9%) 3 ml INH QIDRT [facility] Last Admin: 06/25/17 12:12 Dose: 3 ml Spironolactone (Aldactone) 25 mg PO DAILY [facility] Last Admin: 06/25/17 08:49 Dose: 25 mg Discontinued Medications Albuterol/Ipratropium (Duoneb 3.0-0.5 Mg/3 Ml) 3 ml NEB QIDRT [facility] Last Admin: 06/23/17 13:02 Dose: Not Given Aspirin (Aspirin) 325 mg PO BID [facility] Last Admin: 06/23/17 08:34 Dose: 325 mg Aspirin (Aspirin) 81 mg PO DAILY [facility] Last Admin: 06/24/17 08:54 Dose: Not Given Azithromycin (Zithromax) 500 mg PO ONETIME ONE Stop: 06/25/17 13:31 Ceftazidime (Fortaz) 1 gm IVPUSH Q8HR [facility] Last Admin: 06/23/17 08:34 Dose: 1 gm Digoxin (Lanoxin) 500 mcg IVPUSH ONETIME ONE Stop: 06/23/17 12:16 Last Admin: 02/28/18 13:15 Dose: 500 mcg Digoxin (Lanoxin) 250 mcg IVPUSH ONETIME ONE Stop: 06/23/17 20:01 Last Admin: 06/23/17 19:37 Dose: 250 mcg Digoxin (Lanoxin) 125 mcg IVPUSH ONETIME ONE Stop: 06/24/17 13:01 Last Admin: 06/24/17 13:47 Dose: 125 mcg Enoxaparin Sodium (Lovenox) 30 mg SUBCUT DAILY [facility] Enoxaparin Sodium (Lovenox) 40 mg SUBCUT DAILY [facility] Last Admin: 06/23/17 13:16 Dose: 40 mg Furosemide (Lasix) 20 mg IVPUSH ONETIME ONE Stop: 06/22/17 14:40 Last Admin: 06/22/17 15:41 Dose: 20 mg Azithromycin 500 mg/ Sodium (Chloride) 250 mls @ 250 mls/hr IV Q24H [facility] Last Admin: 06/22/17 15:55 Dose: 250 mls/hr Azithromycin 500 mg/ Sodium (Chloride) 250 mls @ 250 mls/hr IV DAILY@1200 [facility] Stop: 06/24/17 12:59 Last Admin: 06/24/17 12:12 Dose: 250 mls/hr Metoprolol Succinate (Toprol Xl) 25 mg PO BEDTIME [facility] Last Admin: 06/22/17 20:31 Dose: 25 mg Metoprolol Tartrate (Lopressor) 5 mg IVPUSH ONETIME ONE Stop: 06/22/17 15:24 Last Admin: 06/22/17 15:48 Dose: 5 mg Metoprolol Tartrate (Lopressor) 5 mg IVPUSH ONETIME ONE Stop: 06/23/17 12:01 Last Admin: 06/23/17 13:01 Dose: Not Given Warfarin Sodium (Coumadin) 7.5 mg PO ONETIME ONE Stop: 06/23/17 20:01 Last Admin: 06/23/17 19:36 Dose: 7.5 mg Warfarin Sodium (Coumadin) 7.5 mg PO ONETIME ONE Stop: 06/24/17 14:01 Last Admin: 06/24/17 13:48 Dose: 7.5 mg Warfarin Sodium (Coumadin) 5 mg PO ONETIME ONE Stop: 06/25/17 14:18 - Exam Quality Assessment: Supplemental Oxygen General: Alert, Cooperative HEENT: Pupils Equal, Pupils Reactive, Mucous Membr. Moist/[place] Neck: Trachea Midline, No JVD Lungs: Clear to Auscultation, Normal Respiratory Effort Cardiovascular: Irregular Rhythm GI/Abdominal Exam: Soft, Non-Tender, No Distention (Female) Exam: Deferred Back Exam: Normal Inspection Extremities: Normal Inspection, Non-Tender, No Pedal Edema Skin: Warm, Dry, Intact Neurological: No New Focal Deficit Psy/Mental Status: Alert, Normal Affect, Normal Mood - Problem List & Annotations (1) Paroxysmal atrial fibrillation with rapid ventricular response SNOMED Code(s): 792004716 Code(s): I48.0 - PAROXYSMAL ATRIAL FIBRILLATION Status: Acute Priority: High Current Visit: Yes (2) Pneumonia SNOMED Code(s): 904802765 Code(s): J18.9 - PNEUMONIA, UNSPECIFIED ORGANISM Status: Acute Priority: High Current Visit: Yes Qualifiers: Pneumonia type: due to unspecified organism Laterality: bilateral Lung location: unspecified part of lung Qualified Code(s): J18.9 - Pneumonia, unspecified organism (3) Tachycardia SNOMED Code(s): 8160459 Code(s): R00.0 - TACHYCARDIA, UNSPECIFIED Status: Acute Priority: High Current Visit: Yes (4) Cardiomegaly SNOMED Code(s): 1760432 Code(s): I51.7 - CARDIOMEGALY Status: Acute Priority: High Current Visit: No (5) Hypoxia SNOMED Code(s): 483327474 Code(s): R09.02 - HYPOXEMIA Status: Acute Priority: High Current Visit : No (6) Pulmonary edema SNOMED Code(s): 85496887 Code(s): J81.1 - CHRONIC PULMONARY EDEMA Status: Acute Priority: High Current Visit: No Qualifiers: Chronicity: acute Qualified Code(s): J81.0 - Acute pulmonary edema (7) COPD (chronic obstructive pulmonary disease) SNOMED Code(s): 15385580 Code(s): J44.9 - CHRONIC OBSTRUCTIVE PULMONARY DISEASE, UNSPECIFIED Status : Chronic Priority: Medium Current Visit: No Qualifiers: COPD type: unspecified COPD Qualified Code(s): J44.9 - Chronic obstructive pulmonary disease, unspecified (8) Mycoplasma pneumoniae pneumonia SNOMED Code(s): 10822554 Code(s): J15.7 - PNEUMONIA DUE TO MYCOPLASMA PNEUMONIAE Status: Acute Priority: High Current Visit: Yes Qualifiers: Laterality: unspecified laterality Lung location: unspecified part of lung Qualified Code(s): J15.7 - Pneumonia due to Mycoplasma pneumoniae - Problem List Review Problem List Initiated/Reviewed/Updated: Yes - My Orders Last 24 Hours: My Active Orders 06/24/17 14:14 Communication Order [RC] 0800 06/24/17 20:00 Metoprolol Tartrate [Lopressor] 12.5 mg PO Q12HR 06/25/17 14:18 Discontinue Telemetry Monitoring [Cardiac Monitoring Discontinue] [RC] Click to Edit Peripheral IV Discontinue [OM.PC] Routine 06/25/17 14:36 Ready for Discharge [RC] PER UNIT ROUTINE 06/29/17 08:00 Echo Comp wo Cont [US] Routine 06/29/17 15:00 Echo Comp wo Cont [US] Routine - Plan Plan:: 06-22-17 Salvatore Torres PA-C Initially evaluated at [facility], where she had come in for c/o ST and chest congestion. She was found to be tachycardia with HR 150 bpm, and then did say she felt the point when her heart started racing last night. She thought she was perhaps coming down with pneumonia, because her SO has been sick for weeks and was finally admitted with pneumonia. Initially denied any CP but then did say her low throat feels like it's "burning" and she feels pressure and congestion in her chest. T99.7 in the clinic, O2 sats from 91-94% on oxygen ( continuous at home). After workup admitting IP to Dr. Hou with pneumonia, COPD exacerbation, pulmonary edema and tachycardia. Blood cultures x 2 ordered, as well as mycoplasma screen. One time dose of IV Lasix 20 mg now, then 20mg QAM to start tomorrow morning. IV Fortaz and Zithromax. Will monitor on telemetry, and repeat troponin and EKG in the am. Dr. Hou consulted at time of admit. 06/23/17 Ameya Sanchez MD Feels okay. Elevated temperature this afternoon. Continue IV antibiotics. Digitalizing for atrial fibrillation with RVR and start anticoagulation. 06/24/17 Ameya Sanchez MD Soaking sweat last night. Today still in atrial fibrillation with RVR (high 160) . Continue medical therapy. 06/25/17 Ameya Sanchez MD Mycoplasma +. She has been on zithromax. Ventricular rate improved rate control. Stable for home today.
--- NOTE | 2017-06-25 14:47 | PCM.DCSUM1 ---
Discharge Summary - Discharge Data Discharge Date: 06/25/17 Discharge Disposition: Home, Self-Care 01 Condition: Good - Discharge Diagnosis/Problem(s) (1) Paroxysmal atrial fibrillation with rapid ventricular response SNOMED Code(s): 315105917 ICD Code: I48.0 - PAROXYSMAL ATRIAL FIBRILLATION Status: Acute Priority: High Current Visit: Yes (2) Pneumonia SNOMED Code(s): 635050844 ICD Code: J18.9 - PNEUMONIA, UNSPECIFIED ORGANISM Status: Acute Priority : High Current Visit: Yes Qualifiers: Pneumonia type: due to unspecified organism Laterality: bilateral Lung location: unspecified part of lung Qualified Code(s): J18.9 - Pneumonia, unspecified organism (3) Tachycardia SNOMED Code(s): 5604343 ICD Code: R00.0 - TACHYCARDIA, UNSPECIFIED Status: Acute Priority: High Current Visit: Yes (4) Cardiomegaly SNOMED Code(s): 0713051 ICD Code: I51.7 - CARDIOMEGALY Status: Acute Priority: High Current Visit: No (5) Hypoxia SNOMED Code(s): 249481991 ICD Code: R09.02 - HYPOXEMIA Status: Acute Priority: High Current Visit : No (6) Pulmonary edema SNOMED Code(s): 87568649 ICD Code: J81.1 - CHRONIC PULMONARY EDEMA Status: Acute Priority: High Current Visit: No Qualifiers: Chronicity: acute Qualified Code(s): J81.0 - Acute pulmonary edema (7) COPD (chronic obstructive pulmonary disease) SNOMED Code(s): 33066297 ICD Code: J44.9 - CHRONIC OBSTRUCTIVE PULMONARY DISEASE, UNSPECIFIED Status : Chronic Priority: Medium Current Visit: No Qualifiers: COPD type: unspecified COPD Qualified Code(s): J44.9 - Chronic obstructive pulmonary disease, unspecified (8) Mycoplasma pneumoniae pneumonia SNOMED Code(s): 77047204 ICD Code: J15.7 - PNEUMONIA DUE TO MYCOPLASMA PNEUMONIAE Status: Acute Priority: High Current Visit: Yes Qualifiers: Laterality: unspecified laterality Lung location: unspecified part of lung Qualified Code(s): J15.7 - Pneumonia due to Mycoplasma pneumoniae - Patient Summary/Data Consults: Consultations 06/22/17 14:31 OT Evaluation and Treatment [CONS] Routine PT Evaluation and Treatment [CONS] Routine - Patient Instructions Diet: Heart Healthy Diet Activity: As Tolerated Driving: May Drive Today Showering/Bathing: May Shower Other/Special Instructions: O2 at home as you had. Echocardiogram next Wednesday06/29/2017 at 2:00pm at the [facility] in [place]. Call [facility] [phone] for an appointment with Yesica Torres PA-C and to have your blood checked next week. - Discharge Plan Prescriptions/Med Rec: Metoprolol Tartrate [Lopressor] 12.5 mg PO Q12HR #30 tablet Aspirin 81 mg PO DAILY #100 tab Azithromycin [Zithromax] 500 mg PO DAILY #3 tab Digoxin 0.125 mg PO DAILY@1800 #30 ml Warfarin [Coumadin] 5 mg PO DAILY@1800 #30 tab Home Medications: Home Meds Ipratropium/Albuterol Sulfate [Iprat-Albut 0.5-3(2.5) mg/3 ml] 1 ml INH QID PRN 12/27/15 [History] Multivitamin [Multi-Vitamin Daily] 1 tab PO DAILY 12/27/15 [History] Furosemide [Lasix] 20 mg PO DAILY #30 tablet 12/31/15 [Rx] Spironolactone [Aldactone] 25 mg PO DAILY #30 tablet 12/31/15 [Rx] Aspirin 81 mg PO DAILY #100 tab 06/25/17 [Rx] Azithromycin [Zithromax] 500 mg PO DAILY #3 tab 06/25/17 [Rx] Digoxin 0.125 mg PO DAILY@1800 #30 ml 06/25/17 [Rx] Metoprolol Tartrate [Lopressor] 12.5 mg PO Q12HR #30 tablet 06/25/17 [Rx] Warfarin [Coumadin] 5 mg PO DAILY@1800 #30 tab 06/25/17 [Rx] Patient Handouts: Chronic Obstructive Pulmonary Disease, [id number], Enoxaparin injection, Warfarin tablets, Digoxin injection, Heart Failure, Easy- to-Read, Digoxin tablets or capsules, Atrial Fibrillation, [id number], Community-Acquired Pneumonia, Adult, [id number]-[id number] - Discharge Summary/Plan Comment DC Time >30 min.: No Discharge Summary/Plan Comment: 06/25/17 Ameya Sanchez MD 76 year old female initially had sore throat. She was also found to be in atrial fibrillation with RVR at ~160. She was hospitalized and treated. Digitalized and started on metoprolol for ventricular rate control. Mycoplasma + , treated with zithromax. Also started on coumadin. She is improved and stable for discharge today. She has echocardiogram scheduled as out patient. Also discussed cardiology appointment with [facility]. She has home O2. She will follow up at [facility] with Yesica Torres PA-C and also for lab work and adjustment of coumadin. - Patient Data Vitals - Most Recent: Last Vital Signs Temp 97.9 F 06/25/17 12:00 Pulse 85 06/25/17 08:49 Resp 16 06/25/17 12:00 BP 101/59 L 06/25/17 12:00 Pulse Ox 96 06/25/17 14:00 Weight - Most Recent: 170 lb 11.2 oz I&O - Last 24 hours: Intake & Output 06/24/17 06/25/17 06/25/17 22:59 06:59 14:59 Intake Total 1090 2880 Output Total 1700 1000 1200 Balance -610 -1000 1680 Lab Results - Last 24 hrs: Laboratory Results - last 24 hr 06/25/17 06/25/17 06/25/17 Range/Units 07:00 07:00 13:40 WBC 5.7 (4.0-10.2) K/uL RBC 4.49 (3.77-5.09) M/uL Hgb 12.9 (11.7-15.5) g/dL Hct 39.1 (34.0-46.0) % MCV 87.1 (84.0-98.0) fL MCH 28.7 (28.2-33.3) pg MCHC 33.0 (31.7-36.0) g/dL RDW 13.6 (11.2-14.1) % Plt Count 175 (150-350) K/uL Neut % (Auto) 31.9 L (45.0-80.0) % Lymph % (Auto) 42.3 (10.0-50.0) % King % (Auto) 15.9 H (2.0-14.0) % Eos % (Auto) 9.6 H (0.0-5.0) % Baso % (Auto) 0.3 (0.0-2.0) % Neut # (Auto) 1.82 (1.40-7.00) K/uL Lymph # (Auto) 2.42 (0.50-3.50) K/uL King # (Auto) 0.91 (0.00-1.00) K/uL Eos # (Auto) 0.55 H (0.00-0.50) K/uL Baso # (Auto) 0.02 (0.00-0.20) K/uL INR 1.2 Sodium 141 (136-145) mmol/L Potassium 3.5 (3.5-5.1) mmol/L Chloride 102 (98-107) mmol/L Carbon Dioxide 33.2 H (21.0-32.0) mmol/L BUN 10 (7-18) mg/dL Creatinine 0.76 (0.51-1.17) mg/dL Est Cr Clr Drug Dosing 58.34 mL/min Estimated GFR (MDRD) > 60 mL/min Glucose 99 (74-106) mg/dL Calcium 8.7 (8.5-10.1) mg/dL Total Bilirubin 0.3 (0.2-1.0) mg/dL AST 17 (15-37) U/L ALT 13 (12-78) U/L Alkaline Phosphatase 58 (46-116) IU/L C-Reactive Protein 2.6 H (<=0.9) mg/dL NT-Pro-B Natriuret Pep 2342 H (0-125) pg/mL Total Protein 6.9 (6.4-8.2) g/dL Albumin 3.0 L (3.4-5.0) g/dL PRASANTH Results - Last 24 hrs: Microbiology 06/22/17 15:08 Aerobic Blood Culture - Preliminary Blood - Venous - Lab Draw NO GROWTH AFTER 2 DAYS Anaerobic Blood Culture - Preliminary NO GROWTH AFTER 2 DAYS 06/22/17 14:45 Aerobic Blood Culture - Preliminary Blood - Venous NO GROWTH AFTER 2 DAYS Anaerobic Blood Culture - Preliminary NO GROWTH AFTER 2 DAYS 06/22/17 14:45 Mycoplasma Serology - Final Blood Med Orders - Current: Current Medications Acetaminophen (Tylenol) 650 mg PO Q4H PRN PRN Reason: Pain/Fever Last Admin: 06/23/17 20:11 Dose: 650 mg Albuterol (Proventil Neb Soln) 2.5 mg NEB Q4HRRT PRN PRN Reason: Dyspnea Last Admin: 06/23/17 01:44 Dose: 2.5 mg Albuterol/Ipratropium (Duoneb 3.0-0.5 Mg/3 Ml) 3 ml NEB QIDRT PRN PRN Reason: Dyspnea Aspirin (Aspirin) 81 mg PO DAILY [facility] Last Admin: 06/25/17 08:49 Dose: 81 mg Ceftazidime (Fortaz) 1 gm IVPUSH Q12HR [facility] Last Admin: 06/25/17 08:51 Dose: 1 gm Furosemide (Lasix) 20 mg IVPUSH DAILY [facility] Last Admin: 06/25/17 08:50 Dose: 20 mg Metoprolol Tartrate (Lopressor) 12.5 mg PO Q12HR [facility] Last Admin: 06/25/17 08:49 Dose: 12.5 mg Sodium Chloride (Saline Flush) 10 ml FLUSH ASDIRECTED PRN PRN Reason: Keep Vein Open Last Admin: 06/24/17 13:43 Dose: 10 ml Sodium Chloride (Saline Flush) 10 ml FLUSH Q12HR [facility] Last Admin: 06/25/17 08:51 Dose: 10 ml Sodium Chloride (Sodium Chloride 0.9%) 3 ml INH QIDRT [facility] Last Admin: 06/25/17 12:12 Dose: 3 ml Spironolactone (Aldactone) 25 mg PO DAILY [facility] Last Admin: 06/25/17 08:49 Dose: 25 mg Discontinued Medications Albuterol/Ipratropium (Duoneb 3.0-0.5 Mg/3 Ml) 3 ml NEB QIDRT [facility] Last Admin: 06/23/17 13:02 Dose: Not Given Aspirin (Aspirin) 325 mg PO BID [facility] Last Admin: 06/23/17 08:34 Dose: 325 mg Aspirin (Aspirin) 81 mg PO DAILY [facility] Last Admin: 06/24/17 08:54 Dose: Not Given Azithromycin (Zithromax) 500 mg PO ONETIME ONE Stop: 06/25/17 13:31 Ceftazidime (Fortaz) 1 gm IVPUSH Q8HR [facility] Last Admin: 06/23/17 08:34 Dose: 1 gm Digoxin (Lanoxin) 500 mcg IVPUSH ONETIME ONE Stop: 06/23/17 12:16 Last Admin: 06/23/17 13:15 Dose: 500 mcg Digoxin (Lanoxin) 250 mcg IVPUSH ONETIME ONE Stop: 06/23/17 20:01 Last Admin: 06/23/17 19:37 Dose: 250 mcg Digoxin (Lanoxin) 125 mcg IVPUSH ONETIME ONE Stop: 06/24/17 13:01 Last Admin: 06/24/17 13:47 Dose: 125 mcg Enoxaparin Sodium (Lovenox) 30 mg SUBCUT DAILY [facility] Enoxaparin Sodium (Lovenox) 40 mg SUBCUT DAILY [facility] Last Admin: 06/23/17 13:16 Dose: 40 mg Furosemide (Lasix) 20 mg IVPUSH ONETIME ONE Stop: 06/22/17 14:40 Last Admin: 06/22/17 15:41 Dose: 20 mg Azithromycin 500 mg/ Sodium (Chloride) 250 mls @ 250 mls/hr IV Q24H [facility] Last Admin: 06/22/17 15:55 Dose: 250 mls/hr Azithromycin 500 mg/ Sodium (Chloride) 250 mls @ 250 mls/hr IV DAILY@1200 ALEJANDRO Stop: 06/24/17 12:59 Last Admin: 06/24/17 12:12 Dose: 250 mls/hr Metoprolol Succinate (Toprol Xl) 25 mg PO BEDTIME [facility] Last Admin: 06/22/17 20:31 Dose: 25 mg Metoprolol Tartrate (Lopressor) 5 mg IVPUSH ONETIME ONE Stop: 06/22/17 15:24 Last Admin: 06/22/17 15:48 Dose: 5 mg Metoprolol Tartrate (Lopressor) 5 mg IVPUSH ONETIME ONE Stop: 06/23/17 12:01 Last Admin: 06/23/17 13:01 Dose: Not Given Warfarin Sodium (Coumadin) 7.5 mg PO ONETIME ONE Stop: 06/23/17 20:01 Last Admin: 06/23/17 19:36 Dose: 7.5 mg Warfarin Sodium (Coumadin) 7.5 mg PO ONETIME ONE Stop: 06/24/17 14:01 Last Admin: 06/24/17 13:48 Dose: 7.5 mg Warfarin Sodium (Coumadin) 5 mg PO ONETIME ONE Stop: 06/25/17 14:18 *Q Meaningful Use (DIS) - VTE *Q VTE Criteria *Q: - Stroke *Q Stroke Criteria *Q: - AMI *Q AMI Criteria *Q:
== END 2017-06-25 15:45 | disposition home or self-care (01) | DRG 308 ==
LOC: LL.DI 13:40 → LL.MS 14:27
PROVIDERS: ADMIT Physician Assistant; ATTEND Family Medicine
DX: I48.0 Paroxysmal atrial fibrillation (principal); J15.7 Pneumonia due to Mycoplasma pneumoniae; J81.1 Chronic pulmonary edema; Z86.718 Personal history of other venous thrombosis and embolism; H54.7 Unspecified visual loss; F32.9 Major depressive disorder, single episode, unspecified; Z79.82 Long term (current) use of aspirin; Z79.899 Other long term (current) drug therapy; Z91.041 Radiographic dye allergy status; I51.7 Cardiomegaly; R09.02 Hypoxemia; J44.9 Chronic obstructive pulmonary disease, unspecified
CPT/HCPCS: 36415; 71046; 80053; 80162; 83880; 84443; 84484; 85025; 85610; 85730; 86140; 86738; 87040; 93005; 94640; 97161-GP; 97530-GP; A9270-GY; J0456; J0713; J1160; J1650; J1940; J3490; J7050; J7620-GY

== ENCOUNTER 2017-06-30 17:25 | Inpatient (IN) | payer MEDICARE, OTHER ==
--- NOTE | 2017-06-30 18:08 | EDM.PDOC ---
ED HPI GENERAL MEDICAL PROBLEM - General Chief Complaint: Cardiovascular Problem Stated Complaint: Tachycardia Time Seen by Provider: 06/30/17 17:25 Source of Information: Reports: Patient History Limitations: Reports: No Limitations - History of Present Illness INITIAL COMMENTS - FREE TEXT/NARRATIVE: Patient is a 76-year-old female who earlier today went grocery shopping went home felt warm thinking that something was not right she checked her blood pressure and pulse and noted that she was tachycardic patient called her provider and was told to come to the emergency room patient denied any chest pain throughout the episode and no shortness of breath Onset: Sudden Duration: Hour(s):, Improving Location: Reports: Chest Severity: Moderate Improves with: Reports: None Worsens with: Reports: None Context: Reports: Activity Associated Symptoms: Reports: No Other Symptoms - Related Data Allergies Allergy/AdvReac Type Severity Reaction Status Date / Time iopamidol [From Isovue-M] Allergy Mild Rash Verified 06/30/17 18:08 Home Meds: Home Meds Multivitamin [Multi-Vitamin Daily] 1 tab PO DAILY 12/27/15 [History] Furosemide [Lasix] 20 mg PO DAILY #30 tablet 12/31/15 [Rx] Spironolactone [Aldactone] 25 mg PO DAILY #30 tablet 12/31/15 [Rx] Aspirin 81 mg PO DAILY #100 tab 06/25/17 [Rx] Digoxin 0.125 mg PO DAILY@1800 #30 ml 06/25/17 [Rx] Metoprolol Tartrate [Lopressor] 12.5 mg PO Q12HR #30 tablet 06/25/17 [Rx] Warfarin [Coumadin] 5 mg PO SUTUWEFRSA@1800 06/30/17 [History] Warfarin [Coumadin] 7.5 mg PO MOTH@1800 06/30/17 [History] Past Medical History HEENT History: Reports: Impaired Vision Cardiovascular History: Reports: Blood Clots/VTE/DVT Respiratory History: Reports: COPD Other Respiratory History: Lung biopsy in 1998, non-maliginant Psychiatric History: Reports: Depression Hematologic History: Reports: Blood Transfusion(s) - Infectious Disease History Infectious Disease History: Reports: Chicken Pox, Measles, Mumps, Shingles - Past Surgical History Cardiovascular Surgical History: Reports: Other (See Below) Social & Family History - Tobacco Use Smoking Status *Q: Former Smoker Years of Tobacco use: 45 Packs/Tins Daily: 1 Used Tobacco, but Quit: Yes Month Tobacco Last Used: 1 - Caffeine Use Caffeine Use: Reports: Coffee - Recreational Drug Use Recreational Drug Use: No ED ROS GENERAL - Review of Systems Review Of Systems: See Below Constitutional: Reports: No Symptoms, Other (Feeling warm) HEENT: Reports: Glasses Respiratory: Reports: Shortness of Breath (With activity) Cardiovascular: Reports: Dyspnea on Exertion Endocrine: Reports: No Symptoms GI/Abdominal: Reports: No Symptoms : Reports: No Symptoms Skin: Reports: No Symptoms Neurological: Reports: No Symptoms Psychiatric: Reports: No Symptoms ED EXAM, GENERAL - Physical Exam Exam: See Below Exam Limited By: No Limitations General Appearance: Alert, WD/WN, No Apparent Distress Ears: Normal External Exam, Normal Canal, Hearing Grossly Normal, Normal TMs Ear Exam: Bilateral Ear: Auricle Normal, Canal Normal, TM normal Nose: Normal Inspection, Normal Mucosa, No Blood Throat/Mouth: Normal Inspection, Normal Lips, Normal Teeth, Normal Gums, Normal Oropharynx, Normal Voice, No Airway Compromise Head: Atraumatic, Normocephalic Neck: Normal Inspection, Supple, Non-Tender, Full Range of Motion Respiratory/Chest: No Respiratory Distress, Lungs Clear, Normal Breath Sounds, No Accessory Muscle Use, Chest Non-Tender Cardiovascular: Tachycardia, Irregularly Irregular GI/Abdominal: Normal Bowel Sounds (Female) Exam: Deferred Rectal (Female) Exam: Deferred Back Exam: Normal Inspection, Full Range of Motion, NT Extremities: Pedal Edema Neurological: Alert, Oriented, CN II-XII Intact, Normal Cognition, Normal Gait, Normal Reflexes, No Motor/Sensory Deficits Psychiatric: Normal Affect, Normal Mood Skin Exam: Warm, Dry, Intact, Normal Color, No Rash Lymphatic: No Adenopathy Course - Vital Signs Last Recorded V/S: Last Vital Signs Temp 97.2 F 07/01/17 07:55 Pulse 77 07/01/17 08:00 Resp 20 07/01/17 07:55 BP 96/63 07/01/17 08:00 Pulse Ox 95 07/01/17 07:55 - Orders/Labs/Meds Orders: Medication Orders Aspirin (Aspirin) 81 mg PO DAILY [facility] Last Admin: 07/01/17 08:01 Dose: 81 mg Furosemide (Lasix) 20 mg PO DAILY [facility] Last Admin: 07/01/17 08:01 Dose: 20 mg Metoprolol Tartrate (Lopressor) 25 mg PO Q12HR [facility] Last Admin: 07/01/17 08:00 Dose: 25 mg Admin: 06/30/17 21:44 Dose: 25 mg Multivitamins/Minerals/Vitamin C (Tab-A-Yogi) 1 tab PO DAILY [facility] Last Admin: 07/01/17 08:01 Dose: 1 tab Sodium Chloride (Saline Flush) 10 ml FLUSH ASDIRECTED PRN PRN Reason: Keep Vein Open Last Admin: 07/01/17 08:03 Dose: 10 ml Spironolactone (Aldactone) 25 mg PO DAILY [facility] Last Admin: 07/01/17 08:00 Dose: 25 mg Warfarin Sodium 2 mg/ Warfarin (Sodium 5 mg) 7 mg PO DAILY@1800 [facility] Meds: Medications Generic Name Dose Route Start Last Admin Trade Name Freq PRN Reason Stop Dose Admin Aspirin 81 mg 07/01/17 08:00 07/01/17 08:01 Aspirin PO 81 mg DAILY ALEJANDRO Administration Furosemide 20 mg 07/01/17 08:00 07/01/17 08:01 Lasix PO 20 mg DAILY ALEJANDRO Administration Metoprolol Tartrate 25 mg 06/30/17 20:00 07/01/17 08:00 Lopressor PO 25 mg Q12HR ALEJANDRO Administration Multivitamins/Minerals/Vitamin C 1 tab 07/01/17 08:00 07/01/17 08:01 Tab-A-Yogi PO 1 tab DAILY ALEJANDRO Administration Sodium Chloride 10 ml 06/30/17 17:47 07/01/17 08:03 Saline Flush FLUSH 10 ml ASDIRECTED PRN Administration Keep Vein Open Spironolactone 25 mg 07/01/17 08:00 07/01/17 08:00 Aldactone PO 25 mg DAILY ALEJANDRO Administration Warfarin Sodium 2 mg/ Warfarin 7 mg 07/01/17 18:00 Sodium 5 mg PO DAILY@1800 [facility] Discontinued Medications Generic Name Dose Route Start Last Admin Trade Name Freq PRN Reason Stop Dose Admin Digoxin 250 mcg 06/30/17 18:43 06/30/17 19:10 Lanoxin IVPUSH 06/30/17 18:44 250 mcg ONETIME ONE Administration Digoxin 250 mcg 06/30/17 19:30 07/01/17 08:01 Lanoxin IVPUSH 07/01/17 07:31 250 mcg Q6H ALEJANDRO Administration Warfarin Sodium 5 mg 07/02/17 18:00 Coumadin PO SUTUWEFRSA@1800 [facility] Warfarin Sodium 7.5 mg 07/01/17 18:00 Coumadin PO MOTH@1800 [facility] Warfarin Sodium 2 mg/ Warfarin 7 mg 07/01/17 20:00 Sodium 5 mg PO 07/01/17 20:01 ONETIME ONE Warfarin Sodium 2 mg/ Warfarin 7 mg 06/30/17 20:15 06/30/17 21:44 Sodium 5 mg PO 06/30/17 20:16 7 mg ONETIME ONE Administration Departure - Departure Time of Disposition: 17:35 Disposition: Admitted As Inpatient 68 Clinical Impression: Atrial fibrillation with rapid ventricular response - Problem List & Annotations (1) Paroxysmal atrial fibrillation with rapid ventricular response SNOMED Code(s): 600888109 Code(s): I48.0 - PAROXYSMAL ATRIAL FIBRILLATION Status: Acute Priority: High Current Visit: No Annotation/Comment:: EKG showed atrial flutter fibrillation with incomplete right bundle branch block marked ST abnormality ST depressions in the lateral leads and inferior leads these appear to be new as compared to previous EKG on June 23, 2017 troponins today negative at this time we did a digoxin level which shows it to be at 0.7035 which is pretty low I will admit her to the hospital repeat troponins 3 and treat her atrial fibrillation (2) Interstitial pulmonary fibrosis SNOMED Code(s): 99764956 Code(s): J84.10 - PULMONARY FIBROSIS, UNSPECIFIED Status: Acute Current Visit: Yes Annotation/Comment:: We'll admit her and continue her on her pulmonary medications consider reference to branch lending manager for long-term care. - Problem List Review Problem List Initiated/Reviewed/Updated: Yes - Assessment/Plan Admission H&P: Please use this note as an admission H&P Plan: Will admit her treat her and transfer her to her primary physician Dr. gina Sanchez
[2017-06-30 18:19] LABS: CHLORIDE,CL 96 mmol/L (98-107); SODIUM,NA 133 mmol/L (136-145)
[2017-06-30] MEDS ORDERED: Digoxin 500 MCG/2 ML Amp IVPUSH ONE (18:43)
[2017-06-30] MEDS: Digoxin 500 MCG/2 ML Amp IVPUSH SCH (19:58)
[2017-06-30] MEDS: Metoprolol Tartrate 25 MG Tab PO SCH (21:44)
[2017-07-01] MEDS: Digoxin 500 MCG/2 ML Amp IVPUSH SCH ×2 (01:36→08:01)
[2017-07-01] MEDS: Spironolactone 25 MG Tab PO SCH (08:00)
[2017-07-01] MEDS: Metoprolol Tartrate 25 MG Tab PO SCH (08:00)
[2017-07-01] MEDS: Furosemide 20 MG Tab PO SCH (08:01)
[2017-07-01] MEDS: Multivitamin Tab PO SCH (08:01)
[2017-07-01] MEDS: Aspirin 81 MG Tab.Chew PO SCH (08:01)
[2017-07-01] MEDS: Sodium Chloride 0.9% 10 ML Syringe FLUSH PRN (08:03)
[2017-07-01 08:22] LABS: CHLORIDE,CL 100 mmol/L (98-107); SODIUM,NA 137 mmol/L (136-145)
[2017-07-01] MEDS ORDERED: Amiodarone 200 MG Tab PO ONE (15:30)
[2017-07-01] MEDS ORDERED: Warfarin 5 MG Tab PO SCH (18:00)
[2017-07-01] MEDS ORDERED: Metoprolol Tartrate 25 MG Tab PO SCH (20:00)
--- NOTE | 2017-07-01 20:30 | PCM.PN ---
- General Info Date of Service: 07/01/17 Functional Status: Reports: Pain Controlled - Review of Systems General: Reports: No Symptoms HEENT: Reports: No Symptoms Pulmonary: Reports: No Symptoms Cardiovascular: Reports: No Symptoms Gastrointestinal: Reports: No Symptoms Genitourinary: Reports: No Symptoms Musculoskeletal: Reports: No Symptoms Skin: Reports: No Symptoms Neurological: Reports: No Symptoms Psychiatric: Reports: No Symptoms - Patient Data Vitals - Most Recent: Last Vital Signs Temp 96.5 F 07/01/17 15:14 Pulse 64 07/01/17 15:14 Resp 18 07/01/17 15:14 BP 96/48 L 07/01/17 15:14 Pulse Ox 95 07/01/17 15:14 Weight - Most Recent: 168 lb 12.8 oz I&O - Last 24 Hours: Intake & Output 07/01/17 07/01/17 07/01/17 06:59 14:59 22:59 Intake Total 720 480 Balance 720 480 Lab Results Last 24 Hours: Laboratory Results - last 24 hr 06/30/17 06/30/17 07/01/17 Range/Units 17:52 21:49 01:02 WBC (4.0-10.2) K/uL RBC (3.77-5.09) M/uL Hgb (11.7-15.5) g/dL Hct (34.0-46.0) % MCV (84.0-98.0) fL MCH (28.2-33.3) pg MCHC (31.7-36.0) g/dL RDW (11.2-14.1) % Plt Count (150-350) K/uL Neut % (Auto) (45.0-80.0) % Lymph % (Auto) (10.0-50.0) % [place] % (Auto) (2.0-14.0) % Eos % (Auto) (0.0-5.0) % Baso % (Auto) (0.0-2.0) % Neut # (Auto) (1.40-7.00) K/uL Lymph # (Auto) (0.50-3.50) K/uL [place] # (Auto) (0.00-1.00) K/uL Eos # (Auto) (0.00-0.50) K/uL Baso # (Auto) (0.00-0.20) K/uL Sodium (136-145) mmol/L Potassium (3.5-5.1) mmol/L Chloride (98-107) mmol/L Carbon Dioxide (21.0-32.0) mmol/L BUN (7-18) mg/dL Creatinine (0.51-1.17) mg/dL Est Cr Clr Drug Dosing mL/min Estimated GFR (MDRD) mL/min Glucose (74-106) mg/dL POC Glucose 82 (65-110) mg/dl Hemoglobin A1c 6.1 H (4.3-5.7) % Calcium (8.5-10.1) mg/dL Troponin I 0.000 (0.000-0.056) ng/mL Digoxin (0.90-2.00) ng/mL 07/01/17 07/01/17 07/01/17 Range/Units 07:41 07:42 07:42 WBC 5.7 (4.0-10.2) K/uL RBC 4.54 (3.77-5.09) M/uL Hgb 13.0 (11.7-15.5) g/dL Hct 39.1 (34.0-46.0) % MCV 86.1 (84.0-98.0) fL MCH 28.6 (28.2-33.3) pg MCHC 33.2 (31.7-36.0) g/dL RDW 13.5 (11.2-14.1) % Plt Count 256 (150-350) K/uL Neut % (Auto) 49.9 (45.0-80.0) % Lymph % (Auto) 29.5 (10.0-50.0) % [place] % (Auto) 13.4 (2.0-14.0) % Eos % (Auto) 6.7 H (0.0-5.0) % Baso % (Auto) 0.5 (0.0-2.0) % Neut # (Auto) 2.82 (1.40-7.00) K/uL Lymph # (Auto) 1.67 (0.50-3.50) K/uL [place] # (Auto) 0.76 (0.00-1.00) K/uL Eos # (Auto) 0.38 (0.00-0.50) K/uL Baso # (Auto) 0.03 (0.00-0.20) K/uL Sodium 137 (136-145) mmol/L Potassium 3.9 (3.5-5.1) mmol/L Chloride 100 (98-107) mmol/L Carbon Dioxide 29.8 (21.0-32.0) mmol/L BUN 10 (7-18) mg/dL Creatinine 0.72 (0.51-1.17) mg/dL Est Cr Clr Drug Dosing 61.68 mL/min Estimated GFR (MDRD) > 60 mL/min Glucose 96 (74-106) mg/dL POC Glucose 90 (65-110) mg/dl Hemoglobin A1c (4.3-5.7) % Calcium 8.9 (8.5-10.1) mg/dL Troponin I (0.000-0.056) ng/mL Digoxin 0.86 L (0.90-2.00) ng/mL 07/01/17 07/01/17 07/01/17 Range/Units 07:42 11:32 16:58 WBC (4.0-10.2) K/uL RBC (3.77-5.09) M/uL Hgb (11.7-15.5) g/dL Hct (34.0-46.0) % MCV (84.0-98.0) fL MCH (28.2-33.3) pg MCHC (31.7-36.0) g/dL RDW (11.2-14.1) % Plt Count (150-350) K/uL Neut % (Auto) (45.0-80.0) % Lymph % (Auto) (10.0-50.0) % [place] % (Auto) (2.0-14.0) % Eos % (Auto) (0.0-5.0) % Baso % (Auto) (0.0-2.0) % Neut # (Auto) (1.40-7.00) K/uL Lymph # (Auto) (0.50-3.50) K/uL [place] # (Auto) (0.00-1.00) K/uL Eos # (Auto) (0.00-0.50) K/uL Baso # (Auto) (0.00-0.20) K/uL Sodium (136-145) mmol/L Potassium (3.5-5.1) mmol/L Chloride (98-107) mmol/L Carbon Dioxide (21.0-32.0) mmol/L BUN (7-18) mg/dL Creatinine (0.51-1.17) mg/dL Est Cr Clr Drug Dosing mL/min Estimated GFR (MDRD) mL/min Glucose (74-106) mg/dL POC Glucose 99 96 (65-110) mg/dl Hemoglobin A1c (4.3-5.7) % Calcium (8.5-10.1) mg/dL Troponin I 0.000 (0.000-0.056) ng/mL Digoxin (0.90-2.00) ng/mL Med Orders - Current: Current Medications Amiodarone HCl (Cordarone) 400 mg PO DAILY [facility] Aspirin (Aspirin) 81 mg PO DAILY [facility] Last Admin: 07/01/17 08:01 Dose: 81 mg Furosemide (Lasix) 20 mg PO DAILY [facility] Last Admin: 07/01/17 08:01 Dose: 20 mg Metoprolol Tartrate (Lopressor) 12.5 mg PO Q12HR [facility] Multivitamins/Minerals/Vitamin C (Tab-A-Yogi) 1 tab PO DAILY [facility] Last Admin: 07/01/17 08:01 Dose: 1 tab Sodium Chloride (Saline Flush) 10 ml FLUSH ASDIRECTED PRN PRN Reason: Keep Vein Open Last Admin: 07/01/17 08:03 Dose: 10 ml Spironolactone (Aldactone) 25 mg PO DAILY [facility] Last Admin: 07/01/17 08:00 Dose: 25 mg Warfarin Sodium 2 mg/ Warfarin (Sodium 5 mg) 7 mg PO DAILY@1800 [facility] Last Admin: 07/01/17 17:32 Dose: 7 mg Discontinued Medications Amiodarone HCl (Cordarone) 200 mg PO ONETIME ONE Stop: 07/01/17 15:31 Last Admin: 07/01/17 16:36 Dose: 200 mg Digoxin (Lanoxin) 250 mcg IVPUSH ONETIME ONE Stop: 06/30/17 18:44 Last Admin: 06/30/17 19:10 Dose: 250 mcg Digoxin (Lanoxin) 250 mcg IVPUSH Q6H [facility] Stop: 07/01/17 07:31 Last Admin: 07/01/17 08:01 Dose: 250 mcg Metoprolol Tartrate (Lopressor) 25 mg PO Q12HR [facility] Last Admin: 07/01/17 08:00 Dose: 25 mg Warfarin Sodium (Coumadin) 5 mg PO SUTUWEFRSA@1800 [facility] Warfarin Sodium (Coumadin) 7.5 mg PO MOTH@1800 [facility] Warfarin Sodium 2 mg/ Warfarin (Sodium 5 mg) 7 mg PO ONETIME ONE Stop: 07/01/17 20:01 Warfarin Sodium 2 mg/ Warfarin (Sodium 5 mg) 7 mg PO ONETIME ONE Stop: 06/30/17 20:16 Last Admin: 06/30/17 21:44 Dose: 7 mg - Exam Quality Assessment: Supplemental Oxygen, DVT Prophylaxis (coumadin) General: Alert, Cooperative, No Acute Distress HEENT: Mucous Membr. Moist/[place] Neck: Trachea Midline, No JVD Lungs: Normal Respiratory Effort, Decreased Breath Sounds Cardiovascular: Irregular Rhythm GI/Abdominal Exam: Soft, Non-Tender, No Distention (Female) Exam: Deferred Back Exam: Normal Inspection Extremities: Normal Inspection, No Pedal Edema Skin: Warm, Dry, Intact Neurological: No New Focal Deficit Psy/Mental Status: Alert, Normal Affect, Normal Mood - Problem List & Annotations (1) Atrial fibrillation with rapid ventricular response SNOMED Code(s): 493027480719491 Code(s): I48.91 - UNSPECIFIED ATRIAL FIBRILLATION Status: Acute Current Visit: Yes (2) Interstitial pulmonary fibrosis SNOMED Code(s): 43221954 Code(s): J84.10 - PULMONARY FIBROSIS, UNSPECIFIED Status: Acute Current Visit: Yes Annotation/Comment:: We'll admit her and continue her on her pulmonary medications 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 (3) Cardiomegaly SNOMED Code(s): 4195448 Code(s): I51.7 - CARDIOMEGALY Status: Acute Priority: High Current Visit: No (4) Hypoxia SNOMED Code(s): 775898036 Code(s): R09.02 - HYPOXEMIA Status: Acute Priority: High Current Visit : No (5) Tachycardia SNOMED Code(s): 6018678 Code(s): R00.0 - TACHYCARDIA, UNSPECIFIED Status: Acute Priority: High Current Visit: No (6) COPD (chronic obstructive pulmonary disease) SNOMED Code(s): 98733407 Code(s): J44.9 - CHRONIC OBSTRUCTIVE PULMONARY DISEASE, UNSPECIFIED Status : Chronic Priority: Medium Current Visit: No Qualifiers: COPD type: unspecified COPD Qualified Code(s): J44.9 - Chronic obstructive pulmonary disease, unspecified - Problem List Review Problem List Initiated/Reviewed/Updated: Yes - My Orders Last 24 Hours: My Active Orders 07/01/17 20:00 Metoprolol Tartrate [Lopressor] 12.5 mg PO Q12HR 07/01/17 20:11 Notify Provider Vital Signs OB [RC] ASDIRECTED 07/02/17 05:11 EKG Documentation Completion [RC] ASDIRECTED CBC WITH AUTO DIFF [HEME] DAILY CMP [COMPREHENSIVE METABOLIC PN,CMP] [CHEM] DAILY DIGOXIN [CHEM] Routine INR,PT,PROTHROMBIN TIME [COAG] DAILY EKG 12 Lead [EK] DAILY 07/02/17 08:00 Amiodarone [Cordarone] 400 mg PO DAILY 07/03/17 05:11 CBC WITH AUTO DIFF [HEME] DAILY CMP [COMPREHENSIVE METABOLIC PN,CMP] [CHEM] DAILY INR,PT,PROTHROMBIN TIME [COAG] DAILY EKG 12 Lead [EK] DAILY 07/04/17 05:11 CBC WITH AUTO DIFF [HEME] DAILY CMP [COMPREHENSIVE METABOLIC PN,CMP] [CHEM] DAILY INR,PT,PROTHROMBIN TIME [COAG] DAILY EKG 12 Lead [EK] DAILY - Assessment Assessment:: 07/01/17 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 Will stop digoxin and start amioderone. Wean down metoprolol. Continue cardiac monitoring and monitor blood pressure and pulse.
[2017-07-02] MEDS: Sodium Chloride 0.9% 10 ML Syringe FLUSH PRN (07:09)
[2017-07-02] MEDS: Multivitamin Tab PO SCH (07:09)
[2017-07-02] MEDS: Furosemide 20 MG Tab PO SCH (07:09)
[2017-07-02] MEDS: Aspirin 81 MG Tab.Chew PO SCH (07:09)
[2017-07-02] MEDS: Spironolactone 25 MG Tab PO SCH (07:10)
[2017-07-02] MEDS: Amiodarone 200 MG Tab PO SCH (07:10)
[2017-07-02 08:11] LABS: CHLORIDE,CL 100 mmol/L (98-107); SODIUM,NA 138 mmol/L (136-145)
[2017-07-02] MEDS ORDERED: Warfarin 5 MG Tab PO SCH (18:00)
[2017-07-02] MEDS ORDERED: Warfarin 2 MG Tab PO SCH (18:00)
--- NOTE | 2017-07-02 18:43 | PCM.PN ---
- General Info Date of Service: 07/02/17 Functional Status: Reports: Pain Controlled - Review of Systems General: Reports: No Symptoms HEENT: Reports: No Symptoms Pulmonary: Reports: No Symptoms Cardiovascular: Reports: No Symptoms Gastrointestinal: Reports: No Symptoms Genitourinary: Reports: No Symptoms Musculoskeletal: Reports: No Symptoms Skin: Reports: No Symptoms Neurological: Reports: No Symptoms Psychiatric: Reports: No Symptoms - Patient Data Vitals - Most Recent: Last Vital Signs Temp 98.0 F 07/02/17 15:57 Pulse 67 07/02/17 15:57 Resp 28 H 07/02/17 15:57 BP 113/57 L 07/02/17 15:57 Pulse Ox 97 07/02/17 15:57 Weight - Most Recent: 168 lb 12.8 oz I&O - Last 24 Hours: Intake & Output 07/02/17 07/02/17 07/02/17 06:59 14:59 22:59 Intake Total 960 500 Balance 960 500 Lab Results Last 24 Hours: Laboratory Results - last 24 hr 07/01/17 07/02/17 07/02/17 Range/Units 22:02 06:58 07:25 WBC 6.0 (4.0-10.2) K/uL RBC 4.54 (3.77-5.09) M/uL Hgb 13.0 (11.7-15.5) g/dL Hct 39.5 (34.0-46.0) % MCV 87.0 (84.0-98.0) fL MCH 28.6 (28.2-33.3) pg MCHC 32.9 (31.7-36.0) g/dL RDW 13.8 (11.2-14.1) % Plt Count 259 (150-350) K/uL Neut % (Auto) 47.2 (45.0-80.0) % Lymph % (Auto) 31.4 (10.0-50.0) % [place] % (Auto) 14.1 H (2.0-14.0) % Eos % (Auto) 7.0 H (0.0-5.0) % Baso % (Auto) 0.3 (0.0-2.0) % Neut # (Auto) 2.83 (1.40-7.00) K/uL Lymph # (Auto) 1.89 (0.50-3.50) K/uL [place] # (Auto) 0.85 (0.00-1.00) K/uL Eos # (Auto) 0.42 (0.00-0.50) K/uL Baso # (Auto) 0.02 (0.00-0.20) K/uL PT (9.8-11.7) SEC INR Sodium (136-145) mmol/L Potassium (3.5-5.1) mmol/L Chloride (98-107) mmol/L Carbon Dioxide (21.0-32.0) mmol/L BUN (7-18) mg/dL Creatinine (0.51-1.17) mg/dL Est Cr Clr Drug Dosing mL/min Estimated GFR (MDRD) mL/min Glucose (74-106) mg/dL POC Glucose 81 86 (65-110) mg/dl Calcium (8.5-10.1) mg/dL Total Bilirubin (0.2-1.0) mg/dL AST (15-37) U/L ALT (12-78) U/L Alkaline Phosphatase (46-116) IU/L Total Protein (6.4-8.2) g/dL Albumin (3.4-5.0) g/dL Digoxin (0.90-2.00) ng/mL 07/02/17 07/02/17 07/02/17 Range/Units 07:25 07:25 11:42 WBC (4.0-10.2) K/uL RBC (3.77-5.09) M/uL Hgb (11.7-15.5) g/dL Hct (34.0-46.0) % MCV (84.0-98.0) fL MCH (28.2-33.3) pg MCHC (31.7-36.0) g/dL RDW (11.2-14.1) % Plt Count (150-350) K/uL Neut % (Auto) (45.0-80.0) % Lymph % (Auto) (10.0-50.0) % [place] % (Auto) (2.0-14.0) % Eos % (Auto) (0.0-5.0) % Baso % (Auto) (0.0-2.0) % Neut # (Auto) (1.40-7.00) K/uL Lymph # (Auto) (0.50-3.50) K/uL [place] # (Auto) (0.00-1.00) K/uL Eos # (Auto) (0.00-0.50) K/uL Baso # (Auto) (0.00-0.20) K/uL PT 16.1 H (9.8-11.7) SEC INR 1.5 Sodium 138 (136-145) mmol/L Potassium 4.2 (3.5-5.1) mmol/L Chloride 100 (98-107) mmol/L Carbon Dioxide 30.3 (21.0-32.0) mmol/L BUN 12 (7-18) mg/dL Creatinine 0.78 (0.51-1.17) mg/dL Est Cr Clr Drug Dosing 56.94 mL/min Estimated GFR (MDRD) > 60 mL/min Glucose 92 (74-106) mg/dL POC Glucose 81 (65-110) mg/dl Calcium 9.0 (8.5-10.1) mg/dL Total Bilirubin 0.7 (0.2-1.0) mg/dL AST 17 (15-37) U/L ALT 17 (12-78) U/L Alkaline Phosphatase 64 (46-116) IU/L Total Protein 7.5 (6.4-8.2) g/dL Albumin 3.4 (3.4-5.0) g/dL Digoxin 1.03 (0.90-2.00) ng/mL 07/02/17 Range/Units 16:56 WBC (4.0-10.2) K/uL RBC (3.77-5.09) M/uL Hgb (11.7-15.5) g/dL Hct (34.0-46.0) % MCV (84.0-98.0) fL MCH (28.2-33.3) pg MCHC (31.7-36.0) g/dL RDW (11.2-14.1) % Plt Count (150-350) K/uL Neut % (Auto) (45.0-80.0) % Lymph % (Auto) (10.0-50.0) % [place] % (Auto) (2.0-14.0) % Eos % (Auto) (0.0-5.0) % Baso % (Auto) (0.0-2.0) % Neut # (Auto) (1.40-7.00) K/uL Lymph # (Auto) (0.50-3.50) K/uL [place] # (Auto) (0.00-1.00) K/uL Eos # (Auto) (0.00-0.50) K/uL Baso # (Auto) (0.00-0.20) K/uL PT (9.8-11.7) SEC INR Sodium (136-145) mmol/L Potassium (3.5-5.1) mmol/L Chloride (98-107) mmol/L Carbon Dioxide (21.0-32.0) mmol/L BUN (7-18) mg/dL Creatinine (0.51-1.17) mg/dL Est Cr Clr Drug Dosing mL/min Estimated GFR (MDRD) mL/min Glucose (74-106) mg/dL POC Glucose 77 (65-110) mg/dl Calcium (8.5-10.1) mg/dL Total Bilirubin (0.2-1.0) mg/dL AST (15-37) U/L ALT (12-78) U/L Alkaline Phosphatase (46-116) IU/L Total Protein (6.4-8.2) g/dL Albumin (3.4-5.0) g/dL Digoxin (0.90-2.00) ng/mL Med Orders - Current: Current Medications Amiodarone HCl (Cordarone) 400 mg PO DAILY [facility] Last Admin: 07/02/17 07:10 Dose: 400 mg Aspirin (Aspirin) 81 mg PO DAILY [facility] Last Admin: 07/02/17 07:09 Dose: 81 mg Furosemide (Lasix) 20 mg PO DAILY [facility] Last Admin: 07/02/17 07:09 Dose: 20 mg Multivitamins/Minerals/Vitamin C (Tab-A-Yogi) 1 tab PO DAILY [facility] Last Admin: 07/02/17 07:09 Dose: 1 tab Sodium Chloride (Saline Flush) 10 ml FLUSH ASDIRECTED PRN PRN Reason: Keep Vein Open Last Admin: 07/02/17 07:09 Dose: 10 ml Spironolactone (Aldactone) 25 mg PO DAILY [facility] Last Admin: 07/02/17 07:10 Dose: 25 mg Warfarin Sodium (Coumadin) 3 mg PO DAILY@1800 [facility] Last Admin: 07/02/17 18:03 Dose: 3 mg Discontinued Medications Amiodarone HCl (Cordarone) 200 mg PO ONETIME ONE Stop: 07/01/17 15:31 Last Admin: 07/01/17 16:36 Dose: 200 mg Digoxin (Lanoxin) 250 mcg IVPUSH ONETIME ONE Stop: 06/30/17 18:44 Last Admin: 06/30/17 19:10 Dose: 250 mcg Digoxin (Lanoxin) 250 mcg IVPUSH Q6H [facility] Stop: 07/01/17 07:31 Last Admin: 07/01/17 08:01 Dose: 250 mcg Metoprolol Tartrate (Lopressor) 25 mg PO Q12HR [facility] Last Admin: 07/01/17 08:00 Dose: 25 mg Metoprolol Tartrate (Lopressor) 12.5 mg PO Q12HR [facility] Last Admin: 07/01/17 20:38 Dose: Not Given Warfarin Sodium (Coumadin) 5 mg PO SUTUWEFRSA@1800 [facility] Warfarin Sodium (Coumadin) 7.5 mg PO MOTH@1800 [facility] Warfarin Sodium 2 mg/ Warfarin (Sodium 5 mg) 7 mg PO DAILY@1800 [facility] Last Admin: 07/01/17 17:32 Dose: 7 mg Warfarin Sodium 2 mg/ Warfarin (Sodium 5 mg) 7 mg PO ONETIME ONE Stop: 07/01/17 20:01 Warfarin Sodium 2 mg/ Warfarin (Sodium 5 mg) 7 mg PO ONETIME ONE Stop: 06/30/17 20:16 Last Admin: 06/30/17 21:44 Dose: 7 mg - Exam Quality Assessment: Supplemental Oxygen, DVT Prophylaxis (coumadin) General: Alert, Cooperative, No Acute Distress HEENT: Mucous Membr. Moist/[place] Neck: Trachea Midline, No JVD Lungs: Normal Respiratory Effort, Decreased Breath Sounds Cardiovascular: Irregular Rhythm, Tachycardia (only one time today during walk but rate came right down when she stopped to rest) GI/Abdominal Exam: Soft, Non-Tender, No Distention (Female) Exam: Deferred Back Exam: Normal Inspection Extremities: Non-Tender, No Pedal Edema Skin: Warm, Dry, Intact Neurological: No New Focal Deficit Psy/Mental Status: Alert, Normal Affect, Normal Mood EKG INTERPRETATION EKG Date: 07/02/17 Rhythm: NSR [place]: RAD-Right [place] Deviation P-Wave: Present QRS: Normal ST-T: Other (non-specific) QT: Normal Comparison: Change From Previous EKG - Problem List & Annotations (1) Atrial fibrillation with rapid ventricular response SNOMED Code(s): 892232003293297 Code(s): I48.91 - UNSPECIFIED ATRIAL FIBRILLATION Status: Acute Current Visit: Yes (2) Interstitial pulmonary fibrosis SNOMED Code(s): 97289984 Code(s): J84.10 - PULMONARY FIBROSIS, UNSPECIFIED Status: Acute Current Visit: Yes Annotation/Comment:: We'll admit her and continue her on her pulmonary medications 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 (3) Cardiomegaly SNOMED Code(s): 9109005 Code(s): I51.7 - CARDIOMEGALY Status: Acute Priority: High Current Visit: No (4) Hypoxia SNOMED Code(s): 400897731 Code(s): R09.02 - HYPOXEMIA Status: Acute Priority: High Current Visit : No (5) Tachycardia SNOMED Code(s): 4486794 Code(s): R00.0 - TACHYCARDIA, UNSPECIFIED Status: Acute Priority: High Current Visit: No (6) COPD (chronic obstructive pulmonary disease) SNOMED Code(s): 55421702 Code(s): J44.9 - CHRONIC OBSTRUCTIVE PULMONARY DISEASE, UNSPECIFIED Status : Chronic Priority: Medium Current Visit: No Qualifiers: COPD type: unspecified COPD Qualified Code(s): J44.9 - Chronic obstructive pulmonary disease, unspecified - Problem List Review Problem List Initiated/Reviewed/Updated: Yes - My Orders Last 24 Hours: My Active Orders 07/01/17 20:11 Notify Provider Vital Signs OB [RC] ASDIRECTED 07/02/17 05:11 EKG Documentation Completion [RC] ASDIRECTED 07/02/17 08:00 Amiodarone [Cordarone] 400 mg PO DAILY 07/02/17 18:00 Warfarin [Coumadin] 3 mg PO DAILY@1800 07/03/17 05:11 CBC WITH AUTO DIFF [HEME] DAILY CMP [COMPREHENSIVE METABOLIC PN,CMP] [CHEM] DAILY INR,PT,PROTHROMBIN TIME [COAG] DAILY EKG 12 Lead [EK] DAILY 07/04/17 05:11 CBC WITH AUTO DIFF [HEME] DAILY CMP [COMPREHENSIVE METABOLIC PN,CMP] [CHEM] DAILY INR,PT,PROTHROMBIN TIME [COAG] DAILY EKG 12 Lead [EK] DAILY - Assessment Assessment:: 07/01/17 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 Will stop digoxin and start amioderone. Wean down metoprolol. Continue cardiac monitoring and monitor blood pressure and pulse. - Plan Plan:: 07/02/17 Ameya Sanchez MD Ventricular rate better controlled. Converted into NSR this AM now back in atrial fibrillation. Blood pressure is improved today. Continue loading amioderone and have stopped digoxin and metoprolol and decreased coumadin.
[2017-07-02] MEDS: Sodium Chloride 0.9% 10 ML Syringe FLUSH SCH (20:40)
[2017-07-03 07:42] LABS: CHLORIDE,CL 99 mmol/L (98-107); SODIUM,NA 138 mmol/L (136-145)
[2017-07-03] MEDS: Furosemide 20 MG Tab PO SCH (08:25)
[2017-07-03] MEDS: Spironolactone 25 MG Tab PO SCH (08:25)
[2017-07-03] MEDS: Aspirin 81 MG Tab.Chew PO SCH (08:25)
[2017-07-03] MEDS: Amiodarone 200 MG Tab PO SCH (08:25)
[2017-07-03] MEDS: Sodium Chloride 0.9% 10 ML Syringe FLUSH SCH ×2 (08:26→21:17)
[2017-07-03] MEDS: Multivitamin Tab PO SCH (08:26)
--- NOTE | 2017-07-03 11:11 | PCM.PN ---
- General Info Date of Service: 07/03/17 Admission Dx/Problem (Free Text): A-fib COPD with Pulmonary Fibrosis Functional Status: Reports: Ambulating - Review of Systems General: Reports: Other (feels better than on admit, concerned about heart and lungs) HEENT: Reports: No Symptoms Pulmonary: Reports: Shortness of Breath (minimal, with ambulation) Cardiovascular: Reports: Dyspnea on Exertion Gastrointestinal: Reports: No Symptoms Genitourinary: Reports: No Symptoms Musculoskeletal: Reports: No Symptoms Skin: Reports: No Symptoms Neurological: Reports: No Symptoms Psychiatric: Reports: No Symptoms - Patient Data Vitals - Most Recent: Last Vital Signs Temp 97.6 F 07/03/17 08:00 Pulse 62 07/03/17 08:00 Resp 16 07/03/17 08:00 BP 112/56 L 07/03/17 08:00 Pulse Ox 96 07/03/17 08:00 Weight - Most Recent: 179 lb 14.4 oz I&O - Last 24 Hours: Intake & Output 07/02/17 07/03/17 07/03/17 22:59 06:59 14:59 Intake Total 1170 960 Output Total 1000 Balance 1170 -40 Lab Results Last 24 Hours: Laboratory Results - last 24 hr 07/02/17 07/02/17 07/02/17 Range/Units 11:42 16:56 20:18 WBC (4.0-10.2) K/uL RBC (3.77-5.09) M/uL Hgb (11.7-15.5) g/dL Hct (34.0-46.0) % MCV (84.0-98.0) fL MCH (28.2-33.3) pg MCHC (31.7-36.0) g/dL RDW (11.2-14.1) % Plt Count (150-350) K/uL Neut % (Auto) (45.0-80.0) % Lymph % (Auto) (10.0-50.0) % [place] % (Auto) (2.0-14.0) % Eos % (Auto) (0.0-5.0) % Baso % (Auto) (0.0-2.0) % Neut # (Auto) (1.40-7.00) K/uL Lymph # (Auto) (0.50-3.50) K/uL [place] # (Auto) (0.00-1.00) K/uL Eos # (Auto) (0.00-0.50) K/uL Baso # (Auto) (0.00-0.20) K/uL PT (9.8-11.7) SEC INR Sodium (136-145) mmol/L Potassium (3.5-5.1) mmol/L Chloride (98-107) mmol/L Carbon Dioxide (21.0-32.0) mmol/L BUN (7-18) mg/dL Creatinine (0.51-1.17) mg/dL Est Cr Clr Drug Dosing mL/min Estimated GFR (MDRD) mL/min Glucose (74-106) mg/dL POC Glucose 81 77 107 (65-110) mg/dl Calcium (8.5-10.1) mg/dL Total Bilirubin (0.2-1.0) mg/dL AST (15-37) U/L ALT (12-78) U/L Alkaline Phosphatase (46-116) IU/L Total Protein (6.4-8.2) g/dL Albumin (3.4-5.0) g/dL 07/03/17 07/03/17 07/03/17 Range/Units 07:10 07:10 07:10 WBC 5.9 (4.0-10.2) K/uL RBC 4.25 (3.77-5.09) M/uL Hgb 12.2 (11.7-15.5) g/dL Hct 36.6 (34.0-46.0) % MCV 86.1 (84.0-98.0) fL MCH 28.7 (28.2-33.3) pg MCHC 33.3 (31.7-36.0) g/dL RDW 13.5 (11.2-14.1) % Plt Count 236 (150-350) K/uL Neut % (Auto) 45.9 (45.0-80.0) % Lymph % (Auto) 34.6 (10.0-50.0) % [place] % (Auto) 12.9 (2.0-14.0) % Eos % (Auto) 6.3 H (0.0-5.0) % Baso % (Auto) 0.3 (0.0-2.0) % Neut # (Auto) 2.69 (1.40-7.00) K/uL Lymph # (Auto) 2.03 (0.50-3.50) K/uL [place] # (Auto) 0.76 (0.00-1.00) K/uL Eos # (Auto) 0.37 (0.00-0.50) K/uL Baso # (Auto) 0.02 (0.00-0.20) K/uL PT 15.4 H (9.8-11.7) SEC INR 1.4 Sodium 138 (136-145) mmol/L Potassium 4.1 (3.5-5.1) mmol/L Chloride 99 (98-107) mmol/L Carbon Dioxide 31.2 (21.0-32.0) mmol/L BUN 10 (7-18) mg/dL Creatinine 0.72 (0.51-1.17) mg/dL Est Cr Clr Drug Dosing 61.68 mL/min Estimated GFR (MDRD) > 60 mL/min Glucose 93 (74-106) mg/dL POC Glucose (65-110) mg/dl Calcium 9.2 (8.5-10.1) mg/dL Total Bilirubin 0.6 (0.2-1.0) mg/dL AST 16 (15-37) U/L ALT 14 (12-78) U/L Alkaline Phosphatase 63 (46-116) IU/L Total Protein 7.2 (6.4-8.2) g/dL Albumin 3.3 L (3.4-5.0) g/dL Med Orders - Current: Current Medications Amiodarone HCl (Cordarone) 400 mg PO DAILY [facility] Last Admin: 07/03/17 08:25 Dose: 400 mg Aspirin (Aspirin) 81 mg PO DAILY [facility] Last Admin: 07/03/17 08:25 Dose: 81 mg Furosemide (Lasix) 20 mg PO DAILY [facility] Last Admin: 07/03/17 08:25 Dose: 20 mg Multivitamins/Minerals/Vitamin C (Tab-A-Yogi) 1 tab PO DAILY [facility] Last Admin: 07/03/17 08:26 Dose: 1 tab Sodium Chloride (Saline Flush) 10 ml FLUSH ASDIRECTED PRN PRN Reason: Keep Vein Open Last Admin: 07/02/17 07:09 Dose: 10 ml Sodium Chloride (Saline Flush) 10 ml FLUSH Q12HR [facility] Last Admin: 07/03/17 08:26 Dose: 10 ml Spironolactone (Aldactone) 25 mg PO DAILY [facility] Last Admin: 07/03/17 08:25 Dose: 25 mg Warfarin Sodium (Coumadin) 5 mg PO DAILY@1800 [facility] Discontinued Medications Amiodarone HCl (Cordarone) 200 mg PO ONETIME ONE Stop: 07/01/17 15:31 Last Admin: 07/01/17 16:36 Dose: 200 mg Digoxin (Lanoxin) 250 mcg IVPUSH ONETIME ONE Stop: 06/30/17 18:44 Last Admin: 06/30/17 19:10 Dose: 250 mcg Digoxin (Lanoxin) 250 mcg IVPUSH Q6H [facility] Stop: 07/01/17 07:31 Last Admin: 07/01/17 08:01 Dose: 250 mcg Metoprolol Tartrate (Lopressor) 25 mg PO Q12HR [facility] Last Admin: 07/01/17 08:00 Dose: 25 mg Metoprolol Tartrate (Lopressor) 12.5 mg PO Q12HR [facility] Last Admin: 07/01/17 20:38 Dose: Not Given Warfarin Sodium (Coumadin) 5 mg PO SUTUWEFRSA@1800 [facility] Warfarin Sodium (Coumadin) 7.5 mg PO MOTH@1800 [facility] Warfarin Sodium 2 mg/ Warfarin (Sodium 5 mg) 7 mg PO DAILY@1800 [facility] Last Admin: 07/01/17 17:32 Dose: 7 mg Warfarin Sodium 2 mg/ Warfarin (Sodium 5 mg) 7 mg PO ONETIME ONE Stop: 07/01/17 20:01 Warfarin Sodium 2 mg/ Warfarin (Sodium 5 mg) 7 mg PO ONETIME ONE Stop: 06/30/17 20:16 Last Admin: 06/30/17 21:44 Dose: 7 mg Warfarin Sodium (Coumadin) 3 mg PO DAILY@1800 [facility] Last Admin: 07/02/17 18:03 Dose: 3 mg - Exam Quality Assessment: Supplemental Oxygen General: Alert, Oriented, No Acute Distress HEENT: EOMI, Mucous Membr. Moist/[place] Neck: Supple, Trachea Midline, No JVD Lungs: Decreased Breath Sounds Cardiovascular: Regular Rate, Regular Rhythm GI/Abdominal Exam: Normal Bowel Sounds, Soft, Non-Tender, No Distention (Female) Exam: Deferred Back Exam: Normal Inspection Extremities: No Pedal Edema Skin: Warm, Dry, Intact Neurological: No New Focal Deficit Psy/Mental Status: Alert, Normal Affect, Normal Mood - Problem List Review Problem List Initiated/Reviewed/Updated: Yes - My Orders Last 24 Hours: My Active Orders 07/03/17 18:00 Warfarin [Coumadin] 5 mg PO DAILY@1800 - Assessment Assessment:: 07/01/17 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 Will stop digoxin and start amioderone. Wean down metoprolol. Continue cardiac monitoring and monitor blood pressure and pulse. - Plan Plan:: 07/02/17 Ameya Sanchez MD Ventricular rate better controlled. Converted into NSR this AM now back in atrial fibrillation. Blood pressure is improved today. Continue loading amioderone and have stopped digoxin and metoprolol and decreased coumadin. 07-03-17 Salvatore Torres PA-C Heart in NSR now. Patient says has not felt any palpitations or racing heart. INR 1.4, increased dose of warfarin to 5 mg tonight, will be getting labs again tomorrow. No other change in medications. Patient has been up ambulating in the hallway, took a shower this morning, visiting with company now.
[2017-07-03] MEDS ORDERED: Warfarin 5 MG Tab PO SCH (18:00)
[2017-07-04 07:45] LABS: CHLORIDE,CL 99 mmol/L (98-107); SODIUM,NA 137 mmol/L (136-145)
[2017-07-04] MEDS: Amiodarone 200 MG Tab PO SCH (07:55)
[2017-07-04] MEDS: Aspirin 81 MG Tab.Chew PO SCH (07:55)
[2017-07-04] MEDS: Multivitamin Tab PO SCH (07:56)
[2017-07-04] MEDS: Sodium Chloride 0.9% 10 ML Syringe FLUSH SCH ×2 (07:56→20:26)
[2017-07-04] MEDS: Furosemide 20 MG Tab PO SCH (07:56)
[2017-07-04] MEDS: Spironolactone 25 MG Tab PO SCH (07:56)
--- NOTE | 2017-07-04 12:16 | PCM.PN ---
- General Info Date of Service: 07/04/17 Admission Dx/Problem (Free Text): A-fib COPD with Pulmonary Fibrosis Functional Status: Reports: Tolerating Diet, Ambulating, Urinating - Review of Systems General: Reports: No Symptoms HEENT: Reports: No Symptoms Pulmonary: Reports: No Symptoms Cardiovascular: Reports: No Symptoms Gastrointestinal: Reports: No Symptoms Genitourinary: Reports: No Symptoms Musculoskeletal: Reports: No Symptoms Skin: Reports: No Symptoms Neurological: Reports: No Symptoms Psychiatric: Reports: No Symptoms - Patient Data Vitals - Most Recent: Last Vital Signs Temp 98.4 F 07/04/17 08:00 Pulse 61 07/04/17 08:00 Resp 16 07/04/17 08:00 BP 118/57 L 07/04/17 08:00 Pulse Ox 93 L 07/04/17 08:00 Weight - Most Recent: 169 lb 8 oz I&O - Last 24 Hours: Intake & Output 07/03/17 07/04/17 07/04/17 21:59 06:59 14:59 Intake Total 480 Output Total 450 Balance 30 Lab Results Last 24 Hours: Laboratory Results - last 24 hr 07/03/17 07/04/17 07/04/17 Range/Units 19:15 07:08 07:08 WBC 5.8 (4.0-10.2) K/uL RBC 4.10 (3.77-5.09) M/uL Hgb 11.8 (11.7-15.5) g/dL Hct 35.4 (34.0-46.0) % MCV 86.3 (84.0-98.0) fL MCH 28.8 (28.2-33.3) pg MCHC 33.3 (31.7-36.0) g/dL RDW 13.5 (11.2-14.1) % Plt Count 251 (150-350) K/uL Neut % (Auto) 46.6 (45.0-80.0) % Lymph % (Auto) 33.8 (10.0-50.0) % [place] % (Auto) 12.7 (2.0-14.0) % Eos % (Auto) 6.2 H (0.0-5.0) % Baso % (Auto) 0.7 (0.0-2.0) % Neut # (Auto) 2.71 (1.40-7.00) K/uL Lymph # (Auto) 1.97 (0.50-3.50) K/uL [place] # (Auto) 0.74 (0.00-1.00) K/uL Eos # (Auto) 0.36 (0.00-0.50) K/uL Baso # (Auto) 0.04 (0.00-0.20) K/uL PT 15.0 H (9.8-11.7) SEC INR 1.4 Sodium (136-145) mmol/L Potassium (3.5-5.1) mmol/L Chloride (98-107) mmol/L Carbon Dioxide (21.0-32.0) mmol/L BUN (7-18) mg/dL Creatinine (0.51-1.17) mg/dL Est Cr Clr Drug Dosing mL/min Estimated GFR (MDRD) mL/min Glucose (74-106) mg/dL POC Glucose 95 (65-110) mg/dl Calcium (8.5-10.1) mg/dL Total Bilirubin (0.2-1.0) mg/dL AST (15-37) U/L ALT (12-78) U/L Alkaline Phosphatase (46-116) IU/L Total Protein (6.4-8.2) g/dL Albumin (3.4-5.0) g/dL 07/04/17 Range/Units 07:08 WBC (4.0-10.2) K/uL RBC (3.77-5.09) M/uL Hgb (11.7-15.5) g/dL Hct (34.0-46.0) % MCV (84.0-98.0) fL MCH (28.2-33.3) pg MCHC (31.7-36.0) g/dL RDW (11.2-14.1) % Plt Count (150-350) K/uL Neut % (Auto) (45.0-80.0) % Lymph % (Auto) (10.0-50.0) % [place] % (Auto) (2.0-14.0) % Eos % (Auto) (0.0-5.0) % Baso % (Auto) (0.0-2.0) % Neut # (Auto) (1.40-7.00) K/uL Lymph # (Auto) (0.50-3.50) K/uL [place] # (Auto) (0.00-1.00) K/uL Eos # (Auto) (0.00-0.50) K/uL Baso # (Auto) (0.00-0.20) K/uL PT (9.8-11.7) SEC INR Sodium 137 (136-145) mmol/L Potassium 4.2 (3.5-5.1) mmol/L Chloride 99 (98-107) mmol/L Carbon Dioxide 31.7 (21.0-32.0) mmol/L BUN 11 (7-18) mg/dL Creatinine 0.69 (0.51-1.17) mg/dL Est Cr Clr Drug Dosing 64.37 mL/min Estimated GFR (MDRD) > 60 mL/min Glucose 96 (74-106) mg/dL POC Glucose (65-110) mg/dl Calcium 9.1 (8.5-10.1) mg/dL Total Bilirubin 0.5 (0.2-1.0) mg/dL AST 16 (15-37) U/L ALT 17 (12-78) U/L Alkaline Phosphatase 62 (46-116) IU/L Total Protein 7.0 (6.4-8.2) g/dL Albumin 3.2 L (3.4-5.0) g/dL Med Orders - Current: Current Medications Amiodarone HCl (Cordarone) 400 mg PO DAILY [facility] Last Admin: 07/04/17 07:55 Dose: 400 mg Aspirin (Aspirin) 81 mg PO DAILY [facility] Last Admin: 07/04/17 07:55 Dose: 81 mg Furosemide (Lasix) 20 mg PO DAILY [facility] Last Admin: 07/04/17 07:56 Dose: 20 mg Multivitamins/Minerals/Vitamin C (Tab-A-Yogi) 1 tab PO DAILY [facility] Last Admin: 07/04/17 07:56 Dose: 1 tab Sodium Chloride (Saline Flush) 10 ml FLUSH ASDIRECTED PRN PRN Reason: Keep Vein Open Last Admin: 07/02/17 07:09 Dose: 10 ml Sodium Chloride (Saline Flush) 10 ml FLUSH Q12HR [facility] Last Admin: 07/04/17 07:56 Dose: 10 ml Spironolactone (Aldactone) 25 mg PO DAILY [facility] Last Admin: 07/04/17 07:56 Dose: 25 mg Warfarin Sodium (Coumadin) 6 mg PO DAILY@1800 [facility] Discontinued Medications Amiodarone HCl (Cordarone) 200 mg PO ONETIME ONE Stop: 07/01/17 15:31 Last Admin: 07/01/17 16:36 Dose: 200 mg Digoxin (Lanoxin) 250 mcg IVPUSH ONETIME ONE Stop: 06/30/17 18:44 Last Admin: 06/30/17 19:10 Dose: 250 mcg Digoxin (Lanoxin) 250 mcg IVPUSH Q6H [facility] Stop: 07/01/17 07:31 Last Admin: 07/01/17 08:01 Dose: 250 mcg Metoprolol Tartrate (Lopressor) 25 mg PO Q12HR [facility] Last Admin: 07/01/17 08:00 Dose: 25 mg Metoprolol Tartrate (Lopressor) 12.5 mg PO Q12HR [facility] Last Admin: 07/01/17 20:38 Dose: Not Given Warfarin Sodium (Coumadin) 5 mg PO SUTUWEFRSA@1800 [facility] Warfarin Sodium (Coumadin) 7.5 mg PO MOTH@1800 [facility] Warfarin Sodium 2 mg/ Warfarin (Sodium 5 mg) 7 mg PO DAILY@1800 [facility] Last Admin: 07/01/17 17:32 Dose: 7 mg Warfarin Sodium 2 mg/ Warfarin (Sodium 5 mg) 7 mg PO ONETIME ONE Stop: 07/01/17 20:01 Warfarin Sodium 2 mg/ Warfarin (Sodium 5 mg) 7 mg PO ONETIME ONE Stop: 06/30/17 20:16 Last Admin: 06/30/17 21:44 Dose: 7 mg Warfarin Sodium (Coumadin) 3 mg PO DAILY@1800 [facility] Last Admin: 07/02/17 18:03 Dose: 3 mg Warfarin Sodium (Coumadin) 5 mg PO DAILY@1800 [facility] Last Admin: 07/03/17 17:02 Dose: 5 mg - Exam Quality Assessment: Supplemental Oxygen (continuous, oxygen-dependent) General: Alert, Oriented, No Acute Distress HEENT: EOMI, Mucous Membr. Moist/[place] Neck: Supple, Trachea Midline, No JVD Lungs: Clear to Auscultation, Normal Respiratory Effort Cardiovascular: Regular Rate, Regular Rhythm GI/Abdominal Exam: Normal Bowel Sounds, Soft, Non-Tender, No Distention (Female) Exam: Deferred Back Exam: Normal Inspection Extremities: No Pedal Edema Skin: Warm, Dry, Intact Neurological: No New Focal Deficit Psy/Mental Status: Alert, Normal Affect, Normal Mood - Problem List Review Problem List Initiated/Reviewed/Updated: Yes - My Orders Last 24 Hours: My Active Orders 07/04/17 18:00 Warfarin [Coumadin] 6 mg PO DAILY@1800 07/05/17 05:11 BASIC METABOLIC PANEL,BMP [CHEM] Routine CBC WITH AUTO DIFF [HEME] AM INR,PT,PROTHROMBIN TIME [COAG] Routine - Assessment Assessment:: 07/01/17 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 Will stop digoxin and start amioderone. Wean down metoprolol. Continue cardiac monitoring and monitor blood pressure and pulse. - Plan Plan:: 07/02/17 Ameya Sanchez MD Ventricular rate better controlled. Converted into NSR this AM now back in atrial fibrillation. Blood pressure is improved today. Continue loading amioderone and have stopped digoxin and metoprolol and decreased coumadin. 07-03-17 Salvatore Torres PA-C Heart in NSR now. Patient says has not felt any palpitations or racing heart. INR 1.4, increased dose of warfarin to 5 mg tonight, will be getting labs again tomorrow. No other change in medications. Patient has been up ambulating in the hallway, took a shower this morning, visiting with company now. 07-04-17 Salvatore Torres PA-C Still in sinus rhythm, says has not felt any palpitations or racing heart, no CP. Walking in hallways and room. Had shower this am. Discussed probable discharge to home tomorrow on new medication Amiodarone. INR still only 1.4 this morning, will increase warfarin dose. [place] [facility] [place]iscussed Cardiology consult after discharge from acute care, patient is in agreement.
[2017-07-04] MEDS ORDERED: Warfarin 2 MG Tab PO SCH (18:00)
[2017-07-05 07:08] LABS: CHLORIDE,CL 97 mmol/L (98-107); SODIUM,NA 135 mmol/L (136-145)
[2017-07-05] MEDS: Furosemide 20 MG Tab PO SCH (07:43)
[2017-07-05] MEDS: Amiodarone 200 MG Tab PO SCH (07:43)
[2017-07-05] MEDS: Spironolactone 25 MG Tab PO SCH (07:43)
[2017-07-05] MEDS: Multivitamin Tab PO SCH (07:43)
[2017-07-05] MEDS: Aspirin 81 MG Tab.Chew PO SCH (07:43)
[2017-07-05] MEDS: Sodium Chloride 0.9% 10 ML Syringe FLUSH SCH (07:44)
[2017-07-05 15:59] VITALS: BP 120/60
--- NOTE | 2017-07-05 17:47 | PCM.PN ---
- General Info Date of Service: 07/05/17 Admission Dx/Problem (Free Text): A-fib COPD with Pulmonary Fibrosis Functional Status: Reports: Pain Controlled - Review of Systems General: Reports: No Symptoms HEENT: Reports: No Symptoms Pulmonary: Reports: No Symptoms Cardiovascular: Reports: No Symptoms Gastrointestinal: Reports: No Symptoms Genitourinary: Reports: No Symptoms Musculoskeletal: Reports: No Symptoms Skin: Reports: No Symptoms Neurological: Reports: No Symptoms Psychiatric: Reports: No Symptoms - Patient Data Vitals - Most Recent: Last Vital Signs Temp 98.4 F 07/05/17 15:59 Pulse 61 07/05/17 15:59 Resp 18 07/05/17 15:59 BP 120/60 07/05/17 15:59 Pulse Ox 96 07/05/17 15:59 Weight - Most Recent: 169 lb 1.6 oz I&O - Last 24 Hours: Intake & Output 07/05/17 07/05/17 07/05/17 06:59 14:59 22:59 Intake Total 840 Output Total 2000 500 Balance -1160 -500 Lab Results Last 24 Hours: Laboratory Results - last 24 hr 07/04/17 07/05/17 07/05/17 Range/Units 19:27 06:35 06:35 WBC 6.6 (4.0-10.2) K/uL RBC 4.20 (3.77-5.09) M/uL Hgb 12.0 (11.7-15.5) g/dL Hct 36.2 (34.0-46.0) % MCV 86.2 (84.0-98.0) fL MCH 28.6 (28.2-33.3) pg MCHC 33.1 (31.7-36.0) g/dL RDW 13.6 (11.2-14.1) % Plt Count 265 (150-350) K/uL Neut % (Auto) 49.9 (45.0-80.0) % Lymph % (Auto) 31.1 (10.0-50.0) % [place] % (Auto) 12.4 (2.0-14.0) % Eos % (Auto) 6.0 H (0.0-5.0) % Baso % (Auto) 0.6 (0.0-2.0) % Neut # (Auto) 3.31 (1.40-7.00) K/uL Lymph # (Auto) 2.06 (0.50-3.50) K/uL [place] # (Auto) 0.82 (0.00-1.00) K/uL Eos # (Auto) 0.40 (0.00-0.50) K/uL Baso # (Auto) 0.04 (0.00-0.20) K/uL PT 14.6 H (9.8-11.7) SEC INR 1.3 Sodium (136-145) mmol/L Potassium (3.5-5.1) mmol/L Chloride (98-107) mmol/L Carbon Dioxide (21.0-32.0) mmol/L BUN (7-18) mg/dL Creatinine (0.51-1.17) mg/dL Est Cr Clr Drug Dosing mL/min Estimated GFR (MDRD) mL/min Glucose (74-106) mg/dL POC Glucose 87 (65-110) mg/dl Calcium (8.5-10.1) mg/dL 07/05/17 Range/Units 06:35 WBC (4.0-10.2) K/uL RBC (3.77-5.09) M/uL Hgb (11.7-15.5) g/dL Hct (34.0-46.0) % MCV (84.0-98.0) fL MCH (28.2-33.3) pg MCHC (31.7-36.0) g/dL RDW (11.2-14.1) % Plt Count (150-350) K/uL Neut % (Auto) (45.0-80.0) % Lymph % (Auto) (10.0-50.0) % [place] % (Auto) (2.0-14.0) % Eos % (Auto) (0.0-5.0) % Baso % (Auto) (0.0-2.0) % Neut # (Auto) (1.40-7.00) K/uL Lymph # (Auto) (0.50-3.50) K/uL [place] # (Auto) (0.00-1.00) K/uL Eos # (Auto) (0.00-0.50) K/uL Baso # (Auto) (0.00-0.20) K/uL PT (9.8-11.7) SEC INR Sodium 135 L (136-145) mmol/L Potassium 4.0 (3.5-5.1) mmol/L Chloride 97 L (98-107) mmol/L Carbon Dioxide 31.9 (21.0-32.0) mmol/L BUN 12 (7-18) mg/dL Creatinine 0.72 (0.51-1.17) mg/dL Est Cr Clr Drug Dosing 61.68 mL/min Estimated GFR (MDRD) > 60 mL/min Glucose 102 (74-106) mg/dL POC Glucose (65-110) mg/dl Calcium 9.1 (8.5-10.1) mg/dL Med Orders - Current: Current Medications Discontinued Medications Amiodarone HCl (Cordarone) 200 mg PO ONETIME ONE Stop: 07/01/17 15:31 Last Admin: 07/01/17 16:36 Dose: 200 mg Amiodarone HCl (Cordarone) 400 mg PO DAILY [facility] Last Admin: 07/05/17 07:43 Dose: 400 mg Aspirin (Aspirin) 81 mg PO DAILY [facility] Last Admin: 07/05/17 07:43 Dose: 81 mg Digoxin (Lanoxin) 250 mcg IVPUSH ONETIME ONE Stop: 06/30/17 18:44 Last Admin: 06/30/17 19:10 Dose: 250 mcg Digoxin (Lanoxin) 250 mcg IVPUSH Q6H [facility] Stop: 07/01/17 07:31 Last Admin: 07/01/17 08:01 Dose: 250 mcg Furosemide (Lasix) 20 mg PO DAILY [facility] Last Admin: 07/05/17 07:43 Dose: 20 mg Metoprolol Tartrate (Lopressor) 25 mg PO Q12HR [facility] Last Admin: 07/01/17 08:00 Dose: 25 mg Metoprolol Tartrate (Lopressor) 12.5 mg PO Q12HR [facility] Last Admin: 07/01/17 20:38 Dose: Not Given Multivitamins/Minerals/Vitamin C (Tab-A-Yogi) 1 tab PO DAILY [facility] Last Admin: 07/05/17 07:43 Dose: 1 tab Sodium Chloride (Saline Flush) 10 ml FLUSH ASDIRECTED PRN PRN Reason: Keep Vein Open Last Admin: 07/02/17 07:09 Dose: 10 ml Sodium Chloride (Saline Flush) 10 ml FLUSH Q12HR [facility] Last Admin: 07/05/17 07:44 Dose: 10 ml Spironolactone (Aldactone) 25 mg PO DAILY [facility] Last Admin: 07/05/17 07:43 Dose: 25 mg Warfarin Sodium (Coumadin) 5 mg PO SUTUWEFRSA@1800 [facility] Warfarin Sodium (Coumadin) 7.5 mg PO MOTH@1800 [facility] Warfarin Sodium 2 mg/ Warfarin (Sodium 5 mg) 7 mg PO DAILY@1800 [facility] Last Admin: 07/01/17 17:32 Dose: 7 mg Warfarin Sodium 2 mg/ Warfarin (Sodium 5 mg) 7 mg PO ONETIME ONE Stop: 07/01/17 20:01 Warfarin Sodium 2 mg/ Warfarin (Sodium 5 mg) 7 mg PO ONETIME ONE Stop: 06/30/17 20:16 Last Admin: 06/30/17 21:44 Dose: 7 mg Warfarin Sodium (Coumadin) 3 mg PO DAILY@1800 [facility] Last Admin: 07/02/17 18:03 Dose: 3 mg Warfarin Sodium (Coumadin) 5 mg PO DAILY@1800 [facility] Last Admin: 07/03/17 17:02 Dose: 5 mg Warfarin Sodium (Coumadin) 6 mg PO DAILY@1800 [facility] Last Admin: 07/04/17 17:38 Dose: 6 mg - Exam Quality Assessment: Supplemental Oxygen General: Alert, Cooperative, No Acute Distress HEENT: Mucous Membr. Moist/[place] Neck: Trachea Midline, No JVD Lungs: Normal Respiratory Effort, Decreased Breath Sounds Cardiovascular: Regular Rate, Regular Rhythm GI/Abdominal Exam: Soft, Non-Tender, No Distention (Female) Exam: Deferred Back Exam: Normal Inspection Extremities: Normal Inspection, Non-Tender, No Pedal Edema Skin: Warm, Dry, Intact Neurological: No New Focal Deficit Psy/Mental Status: Alert, Normal Affect, Normal Mood - Problem List & Annotations (1) Atrial fibrillation with rapid ventricular response SNOMED Code(s): 532516912097287 Code(s): I48.91 - UNSPECIFIED ATRIAL FIBRILLATION Status: Acute (2) Interstitial pulmonary fibrosis SNOMED Code(s): 70279606 Code(s): J84.10 - PULMONARY FIBROSIS, UNSPECIFIED Status: Acute Annotation/Comment:: We'll admit her and continue her on her pulmonary medications consider reference to records management manager for long-term care. (3) Cardiomegaly SNOMED Code(s): 3227534 Code(s): I51.7 - CARDIOMEGALY Status: Acute Priority: High (4) Hypoxia SNOMED Code(s): 431889795 Code(s): R09.02 - HYPOXEMIA Status: Acute Priority: High (5) Tachycardia SNOMED Code(s): 6536974 Code(s): R00.0 - TACHYCARDIA, UNSPECIFIED Status: Acute Priority: High (6) COPD (chronic obstructive pulmonary disease) SNOMED Code(s): 96061695 Code(s): J44.9 - CHRONIC OBSTRUCTIVE PULMONARY DISEASE, UNSPECIFIED Status : Chronic Priority: Medium Qualifiers: COPD type: unspecified COPD Qualified Code(s): J44.9 - Chronic obstructive pulmonary disease, unspecified - Problem List Review Problem List Initiated/Reviewed/Updated: Yes - My Orders Last 24 Hours: My Active Orders 07/05/17 16:34 Discontinue Telemetry Monitoring [Cardiac Monitoring Discontinue] [RC] Click to Edit Peripheral IV Discontinue [OM.PC] Routine 07/05/17 16:36 Ready for Discharge [RC] PER UNIT ROUTINE - Assessment Assessment:: 07/01/17 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 Will stop digoxin and start amioderone. Wean down metoprolol. Continue cardiac monitoring and monitor blood pressure and pulse. - Plan Plan:: 07/02/17 Ameya Sanchez MD Ventricular rate better controlled. Converted into NSR this AM now back in atrial fibrillation. Blood pressure is improved today. Continue loading amioderone and have stopped digoxin and metoprolol and decreased coumadin. 07-03-17 Salvatore Torres PA-C Heart in NSR now. Patient says has not felt any palpitations or racing heart. INR 1.4, increased dose of warfarin to 5 mg tonight, will be getting labs again tomorrow. No other change in medications. Patient has been up ambulating in the hallway, took a shower this morning, visiting with company now. 07-04-17 Salvatore Torres PA-C Still in sinus rhythm, says has not felt any palpitations or racing heart, no CP. Walking in hallways and room. Had shower this am. Discussed probable discharge to home tomorrow on new medication Amiodarone. INR still only 1.4 this morning, will increase warfarin dose. To follow up at [facility] [place]. Discussed Cardiology consult after discharge from acute care, patient is in agreement. 07/05/17 Ameya Sanchez MD Feels good. No tachycardia. In normal sinus rhythm. Home on amioderone and coumadin.
--- NOTE | 2017-07-05 17:51 | PCM.DCSUM1 ---
Discharge Summary - Discharge Data Discharge Date: 07/05/17 Discharge Disposition: Home, Self-Care 01 Condition: Good - Discharge Diagnosis/Problem(s) (1) Atrial fibrillation with rapid ventricular response SNOMED Code(s): 734582929373068 ICD Code: I48.91 - UNSPECIFIED ATRIAL FIBRILLATION Status: Acute (2) Interstitial pulmonary fibrosis SNOMED Code(s): 73822568 ICD Code: J84.10 - PULMONARY FIBROSIS, UNSPECIFIED Status: Acute Problem Details: We'll admit her and continue her on her pulmonary medications consider reference to [facility] for long-term care. (3) Cardiomegaly SNOMED Code(s): 6244480 ICD Code: I51.7 - CARDIOMEGALY Status: Acute Priority: High (4) Hypoxia SNOMED Code(s): 817707540 ICD Code: R09.02 - HYPOXEMIA Status: Acute Priority: High (5) Tachycardia SNOMED Code(s): 3699656 ICD Code: R00.0 - TACHYCARDIA, UNSPECIFIED Status: Acute Priority: High (6) COPD (chronic obstructive pulmonary disease) SNOMED Code(s): 96282211 ICD Code: J44.9 - CHRONIC OBSTRUCTIVE PULMONARY DISEASE, UNSPECIFIED Status : Chronic Priority: Medium Qualifiers: COPD type: unspecified COPD Qualified Code(s): J44.9 - Chronic obstructive pulmonary disease, unspecified - Patient Instructions Diet: Heart Healthy Diet Activity: No Strenuous Activities Driving: Do Not Drive Showering/Bathing: May Shower Other/Special Instructions: Follow up at [facility] next week to have your PT/INR checked and to have an appointment with Yesica to check your blood pressure and your pulse. - Discharge Plan Prescriptions/Med Rec: Amiodarone [Cordarone] 200 mg PO DAILY #90 tab Home Medications: Home Meds Multivitamin [Multi-Vitamin Daily] 1 tab PO DAILY 12/27/15 [History] Furosemide [Lasix] 20 mg PO DAILY #30 tablet 12/31/15 [Rx] Spironolactone [Aldactone] 25 mg PO DAILY #30 tablet 12/31/15 [Rx] Aspirin 81 mg PO DAILY #100 tab 06/25/17 [Rx] Warfarin [Coumadin] 5 mg PO SUTUWEFRSA@1800 06/30/17 [History] Warfarin [Coumadin] 7.5 mg PO MOTH@1800 06/30/17 [History] Amiodarone [Cordarone] 200 mg PO DAILY #90 tab 07/05/17 [Rx] Patient Handouts: Amiodarone tablets, Atrial Fibrillation Forms: ED Department Discharge Referrals: Yesica Torres PA [Primary Care Provider] - - Discharge Summary/Plan Comment DC Time >30 min.: No Discharge Summary/Plan Comment: 76 yowf developed atrial fibrillation. Converted to normal sinus rhythm on amioderone. Started on coumadin. EF 55-60% on echocardiogram. She has known hypoxia secondary to COPD and is on home O2. Recently treated for mycoplasma pneumonia. She will follow up at [facility] in [place] and also with [facility] cardiology. - Patient Data Vitals - Most Recent: Last Vital Signs Temp 98.4 F 07/05/17 15:59 Pulse 61 07/05/17 15:59 Resp 18 07/05/17 15:59 BP 120/60 07/05/17 15:59 Pulse Ox 96 07/05/17 15:59 Weight - Most Recent: 169 lb 1.6 oz I&O - Last 24 hours: Intake & Output 07/05/17 07/05/17 07/05/17 06:59 14:59 22:59 Intake Total 840 Output Total 2000 500 Balance -1160 -500 Lab Results - Last 24 hrs: Laboratory Results - last 24 hr 07/04/17 07/05/17 07/05/17 Range/Units 19:27 06:35 06:35 WBC 6.6 (4.0-10.2) K/uL RBC 4.20 (3.77-5.09) M/uL Hgb 12.0 (11.7-15.5) g/dL Hct 36.2 (34.0-46.0) % MCV 86.2 (84.0-98.0) fL MCH 28.6 (28.2-33.3) pg MCHC 33.1 (31.7-36.0) g/dL RDW 13.6 (11.2-14.1) % Plt Count 265 (150-350) K/uL Neut % (Auto) 49.9 (45.0-80.0) % Lymph % (Auto) 31.1 (10.0-50.0) % [place] % (Auto) 12.4 (2.0-14.0) % Eos % (Auto) 6.0 H (0.0-5.0) % Baso % (Auto) 0.6 (0.0-2.0) % Neut # (Auto) 3.31 (1.40-7.00) K/uL Lymph # (Auto) 2.06 (0.50-3.50) K/uL [place] # (Auto) 0.82 (0.00-1.00) K/uL Eos # (Auto) 0.40 (0.00-0.50) K/uL Baso # (Auto) 0.04 (0.00-0.20) K/uL PT 14.6 H (9.8-11.7) SEC INR 1.3 Sodium (136-145) mmol/L Potassium (3.5-5.1) mmol/L Chloride (98-107) mmol/L Carbon Dioxide (21.0-32.0) mmol/L BUN (7-18) mg/dL Creatinine (0.51-1.17) mg/dL Est Cr Clr Drug Dosing mL/min Estimated GFR (MDRD) mL/min Glucose (74-106) mg/dL POC Glucose 87 (65-110) mg/dl Calcium (8.5-10.1) mg/dL 07/05/17 Range/Units 06:35 WBC (4.0-10.2) K/uL RBC (3.77-5.09) M/uL Hgb (11.7-15.5) g/dL Hct (34.0-46.0) % MCV (84.0-98.0) fL MCH (28.2-33.3) pg MCHC (31.7-36.0) g/dL RDW (11.2-14.1) % Plt Count (150-350) K/uL Neut % (Auto) (45.0-80.0) % Lymph % (Auto) (10.0-50.0) % [place] % (Auto) (2.0-14.0) % Eos % (Auto) (0.0-5.0) % Baso % (Auto) (0.0-2.0) % Neut # (Auto) (1.40-7.00) K/uL Lymph # (Auto) (0.50-3.50) K/uL [place] # (Auto) (0.00-1.00) K/uL Eos # (Auto) (0.00-0.50) K/uL Baso # (Auto) (0.00-0.20) K/uL PT (9.8-11.7) SEC INR Sodium 135 L (136-145) mmol/L Potassium 4.0 (3.5-5.1) mmol/L Chloride 97 L (98-107) mmol/L Carbon Dioxide 31.9 (21.0-32.0) mmol/L BUN 12 (7-18) mg/dL Creatinine 0.72 (0.51-1.17) mg/dL Est Cr Clr Drug Dosing 61.68 mL/min Estimated GFR (MDRD) > 60 mL/min Glucose 102 (74-106) mg/dL POC Glucose (65-110) mg/dl Calcium 9.1 (8.5-10.1) mg/dL Med Orders - Current: Current Medications Discontinued Medications Amiodarone HCl (Cordarone) 200 mg PO ONETIME ONE Stop: 07/01/17 15:31 Last Admin: 07/01/17 16:36 Dose: 200 mg Amiodarone HCl (Cordarone) 400 mg PO DAILY [facility] Last Admin: 07/05/17 07:43 Dose: 400 mg Aspirin (Aspirin) 81 mg PO DAILY [facility] Last Admin: 07/05/17 07:43 Dose: 81 mg Digoxin (Lanoxin) 250 mcg IVPUSH ONETIME ONE Stop: 06/30/17 18:44 Last Admin: 06/30/17 19:10 Dose: 250 mcg Digoxin (Lanoxin) 250 mcg IVPUSH Q6H [facility] Stop: 07/01/17 07:31 Last Admin: 07/01/17 08:01 Dose: 250 mcg Furosemide (Lasix) 20 mg PO DAILY [facility] Last Admin: 07/05/17 07:43 Dose: 20 mg Metoprolol Tartrate (Lopressor) 25 mg PO Q12HR [facility] Last Admin: 07/01/17 08:00 Dose: 25 mg Metoprolol Tartrate (Lopressor) 12.5 mg PO Q12HR [facility] Last Admin: 07/01/17 20:38 Dose: Not Given Multivitamins/Minerals/Vitamin C (Tab-A-Yogi) 1 tab PO DAILY [facility] Last Admin: 07/05/17 07:43 Dose: 1 tab Sodium Chloride (Saline Flush) 10 ml FLUSH ASDIRECTED PRN PRN Reason: Keep Vein Open Last Admin: 07/02/17 07:09 Dose: 10 ml Sodium Chloride (Saline Flush) 10 ml FLUSH Q12HR [facility] Last Admin: 07/05/17 07:44 Dose: 10 ml Spironolactone (Aldactone) 25 mg PO DAILY [facility] Last Admin: 07/05/17 07:43 Dose: 25 mg Warfarin Sodium (Coumadin) 5 mg PO SUTUWEFRSA@1800 [facility] Warfarin Sodium (Coumadin) 7.5 mg PO MOTH@1800 [facility] Warfarin Sodium 2 mg/ Warfarin (Sodium 5 mg) 7 mg PO DAILY@1800 [facility] Last Admin: 07/01/17 17:32 Dose: 7 mg Warfarin Sodium 2 mg/ Warfarin (Sodium 5 mg) 7 mg PO ONETIME ONE Stop: 07/01/17 20:01 Warfarin Sodium 2 mg/ Warfarin (Sodium 5 mg) 7 mg PO ONETIME ONE Stop: 06/30/17 20:16 Last Admin: 06/30/17 21:44 Dose: 7 mg Warfarin Sodium (Coumadin) 3 mg PO DAILY@1800 [facility] Last Admin: 07/02/17 18:03 Dose: 3 mg Warfarin Sodium (Coumadin) 5 mg PO DAILY@1800 [facility] Last Admin: 07/03/17 17:02 Dose: 5 mg Warfarin Sodium (Coumadin) 6 mg PO DAILY@1800 [facility] Last Admin: 07/04/17 17:38 Dose: 6 mg *Q Meaningful Use (DIS) - VTE *Q VTE Criteria *Q: - Stroke *Q Stroke Criteria *Q: - AMI *Q AMI Criteria *Q:
== END 2017-07-05 16:55 | disposition home or self-care (01) | DRG 310 ==
LOC: LL.ED 17:25 → LL.MS 17:36 → UNDOADMIN 17:36 → LL.MS 19:19 → UNDODISIN 07-05 16:55
PROVIDERS: ADMIT Family Medicine; ATTEND Family Medicine
DX: I48.0 Paroxysmal atrial fibrillation (principal); J84.10 Pulmonary fibrosis, unspecified; I51.7 Cardiomegaly; R09.02 Hypoxemia; J44.9 Chronic obstructive pulmonary disease, unspecified; Z86.718 Personal history of other venous thrombosis and embolism; F32.9 Major depressive disorder, single episode, unspecified; H54.7 Unspecified visual loss; Z87.891 Personal history of nicotine dependence; Z91.041 Radiographic dye allergy status; Z79.01 Long term (current) use of anticoagulants; Z79.82 Long term (current) use of aspirin; Z79.899 Other long term (current) drug therapy
CPT/HCPCS: 36415; 71046; 80048; 80053; 80162; 82962; 83036; 84484; 85025; 85610; 93005; 93306; 99285; A9270-GY; J1160; J7050

== ENCOUNTER 2020-06-17 18:15 | Inpatient (IN) | payer MEDICARE, OTHER ==
--- NOTE | 2020-06-17 18:30 | EDM.PDOC ---
ED HPI GENERAL MEDICAL PROBLEM - General Chief Complaint: Cardiovascular Problem Stated Complaint: Tachycardia, Palpatations Time Seen by Provider: 06/17/20 18:25 Source of Information: Reports: Patient, Family (Granddaughter Kenneth and daughter Abigail), Old Records ([facility] chart/EMR), Other ([facility] EMR) History Limitations: Reports: No Limitations - History of Present Illness INITIAL COMMENTS - FREE TEXT/NARRATIVE: The patient was brought to the emergency room for evaluation of recurrent episodes of mild to moderate tachycardia during the last 3 days with some mild secondary dyspnea. She denies any recent changes of medical therapy, medication noncompliance, etc. with previous history of recurrent atrial fibrillation in the past. The patient denies any chest pain/pressure, dizziness, orthostasis, orthopnea, diaphoresis, paresthesias, recent decreased exercise tolerance, or any other anginal-type symptoms. No recent history of abdominal pain, heartburn, nausea, diarrhea, melena, gross hematochezia, or any food intolerance, including fatty foods, etc.. She denies any gross hematuria, colic, or other UTI symptoms. The patient also denies any recent fever, cough, wheezing, etc.. She also denies any significant current pain or discomfort. Onset: Gradual Onset Date: 06/14/20 Duration: Getting Worse, Intermittent Location: Reports: Other (No pain) Quality: Reports: Same as Previous Episode Severity: Mild Improves with: Reports: None Worsens with: Reports: None Associated Symptoms: Reports: Shortness of Breath. 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) - Related Data Allergies Allergy/AdvReac Type Severity Reaction Status Date / Time iopamidol [From Isovue-M] Allergy Mild Rash Verified 06/17/20 18:16 Home Meds: Home Meds Multivitamin [Multi-Vitamin Daily] 1 tab PO DAILY 12/27/15 [History] Furosemide [Lasix] 20 mg PO DAILY #30 tablet 12/31/15 [Rx] Spironolactone [Aldactone] 25 mg PO DAILY #30 tablet 12/31/15 [Rx] Warfarin [Coumadin] 5 mg PO MOWE@1800 06/30/17 [History] Warfarin [Coumadin] 7.5 mg PO SUTUTHFRSA@1800 06/30/17 [History] Albuterol/Ipratropium [DuoNeb 3.0-0.5 MG/3 ML] 3 ml INH Q6HR PRN 06/17/20 [History] Azithromycin 250 mg PO MOWEFR@0800 06/17/20 [History] Budesonide [Pulmicort] 0.25 mg IH Q12HR 06/17/20 [History] Cholecalciferol (Vitamin D3) [Vitamin D] 5,000 unit PO DAILY 06/17/20 [History] Diltiazem [Cardizem CD] 120 mg PO BEDTIME 06/17/20 [History] Ezetimibe [Zetia] 10 mg PO BEDTIME 06/17/20 [History] Lutein 6 mg PO DAILY 06/17/20 [History] atorvaSTATin Calcium [Lipitor] 20 mg PO BEDTIME 06/17/20 [History] Past Medical History HEENT History: Reports: Cataract, Impaired Vision, Other (See Below). Denies: Allergic Rhinitis, Glaucoma, Hard of Hearing, Macular Degeneration, Otitis Media, Retinal Detachment, Sinusitis Other HEENT History: Patient wears glasses. Bilateral mild cataracts with no surgery to this point. Cardiovascular History: Reports: Afib, Arrhythmia (So), Blood Clots/VTE/DVT, High Cholesterol, Hypertension, Other (See Below). Denies: Aneurysm, CAD, Cardiomyopathy, Heart Failure, Heart Murmur, NH, PTCA, Pulmonary Hypertension, PVD, Syncope Other Cardiovascular History: Recurrent atrial fibrillation with rapid ventricular response. Previous first-degree AV block. DVT of the leg with current Coumadin therapy for her atrial fibrillation. Cardiomegaly without history of recurrent CHF. Left atrial enlargement by echocardiogram. Borderline pulmonary hypertension by CTA of the chest however not by echocardiogram. Respiratory History: Reports: Asthma, Bronchitis, Recurrent, COPD, Intubation, Previous, Pneumonia, Recurrent, Pulmonary Fibrosis, SOB, Other (See Below). 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 Previous lung biopsy in 1998, non-maliginant. Histocytosis X. Right ninth rib fracture as below in about 2017. Benign bilateral pulmonary granulomas. 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 Gastrointestinal History: Reports: Jaundice, Other (See Below). Denies: Bowel Obstruction, Celiac Disease, Cholelithiasis, Chronic Constipation, Chronic Diarrhea, Colon Polyp, Diverticulosis, Fecal Incontinence, Gastritis, GI Bleed, Hepatitis, Inflammatory Bowel Disease, Irritable Bowel Syndrome, PUD Other Gastrointestinal History: Possible hepatitis/jaundice during high school. 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 Denies: Dysfunctional Uterine Bleeding, Endometriosis, Fibroids : 6 Para: 5 LMP (Approximate): Other (See Below) Other DIGITAL ARCHIVIST History: Menopause in her 50s. History of hemorrhage in 1965 requiring 3 units of packed red blood cells at that time. First trimester SAB which did require D&C as below. Otherwise full term without complications during pregnancies or deliveries. Musculoskeletal History: Reports: Arthritis, Fracture, Osteoarthritis, Osteoporosis, RA, Other (See Below). 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 Mild scoliosis. Multiple vertebral body compression fractures including thoracic and lumbar region. Right rib fracture as above. Bimalleolar left ankle fracture on 05/14/2020. Neurological History: Denies: Cerebral Aneurysms, Concussion, CVA, Headaches, Chronic, Head Trauma, Migraines, Neuropathy, Peripheral, Seizure, TIA, Vertigo Psychiatric History: Reports: Anxiety, Depression. Denies: Abuse, Victim of, ADD, ADHD, Addiction, Dementia, Psych Hospitalization(s), PTSD, Suicide Attempt, Suicidal Ideation Endocrine/Metabolic History: Reports: Osteopenia, Osteoporosis. Denies: Diabetes, Gestational, Diabetes, Type I, Diabetes, Type II, Diabetes Mellitus, Type 3c, Hypothyroidism, IDDM Hematologic History: Reports: Anemia, Blood Transfusion(s), Other (See Below). Denies: B12 Deficiency, Iron Deficiency Other Hematologic History: hemorrhage with blood transfusions as above. Immunologic History: Reports: None. Denies: AIDS, HIV, SLE Oncologic (Cancer) History: Reports: Lung. Denies: Basal Cell Carcinoma, Breast, Cervix, Colon, Hodgkin's Lymphoma, Leukemia, Lymphoma, Malignant Melanoma, Metastatic, Non-Hodgkin's Lymphoma, Ovarian, Squamous Cell Carcinoma, Uterine Dermatologic History: Reports: Other (See Below). Denies: Eczema, Psoriasis Other Dermatologic History: Recurrent sebaceous cysts. - Infectious Disease History Infectious Disease History: Reports: Chicken Pox, Measles, Mumps, Shingles (Right scapular herpes zoster). Denies: C-Difficile, Meningitis, Mononucleosis, MRSA, Novel Coronavirus, Rheumatic Fever, Rubella, Scarlet Fever, TB, VRE - Past Surgical History Head Surgeries/Procedures: Reports: None. Denies: Craniotomy HEENT Surgical History: Reports: Oral Surgery, Other (See Below). Denies: Adenoidectomy, Cataract Surgery, Eye Surgery, Laser Surgery, LASIK, Myringotomy w Tube(s), Naso-Sinus Surgery, Tonsillectomy Other HEENT Surgeries/Procedures: Complete teeth extraction with current complete dentures uppers and lowers. Cardiovascular Surgical History: Reports: None. Denies: Varicose Respiratory Surgical History: Reports: Lung Biopsies, Other (See Below) Other Respiratory Surgeries/Procedures: Lung biopsy 1999 for benign disease as above with subsequent positive needle biopsy of the right upper lobe for non-small cell carcinoma on 04/12/2019. GI Surgical History: Reports: Colonoscopy, Other (See Below). Denies: Appendectomy, Cholecystectomy, EGD, Hernia, Abdominal, Hernia, Inguinal, Hernia Repair/Other, Polypectomy Other GI Surgeries/Procedures: Colonoscopy on 03/24/2007. Female Surgical History: Reports: D&C, Dilitation & Evacuation, Other (See Below). Denies: Breast Biopsy, Section, Hysterectomy, Salpingo- Oophorectomy, Tubal Ligation Other Female Surgeries/Procedures: D&C secondary to SAB as above. Endocrine Surgical History: Reports: None. Denies: Thyroid Biopsy Neurological Surgical History: Denies: C-Spine, Discectomy, Laminectomy, Lumbar Spine, Sacral Spine, Scoliosis, Spinal Fusion, Thoracic Spine, Vertebroplasty Musculoskeletal Surgical History: Reports: None. Denies: Arthroscopic Procedure, Carpal Tunnel, Ganglion Cyst, Joint Replacement, ORIF, Shoulder Surgery Oncologic Surgical History: Reports: None Dermatological Surgical History: Reports: Other (See Below) Other Dermatological Surgeries/Procedures: Multiple excisions for benign suspicious cysts. - Past Imaging History Past Imaging History: Reports: JES Screen ( Negative on 01/17/2019.), Cardiac Echo (Last echocardiogram on 07/01/2017 with ejection fraction of 55-60% and findings as above. Previous echocardiogram on 12/31/2015.), CAT Scan (Negative CT of the chest on 12/27/2015. CT of the chest with IV contrast on 02/29/2020 and 11/03/2013. CT of the chest without contrast on 06/06/2020, 09/21/2019, 03/22/2019, 03/21/2018, and 05/16/2008.), Mammogram (Last mammogram on 01/11/2020.), PET (Whole body PET scan on 03/29/2019.), PFT (PFTs including diffusion studies and pulmonary stress test on 02/26/2020 and 09/26/2019 with multiple previous PFT evaluations.) Social & Family History - Family History HEENT: Reports: Macular Degeneration, Other (See Below). Denies: Glaucoma, Retinal Detachment Other HEENT Family History: Mother with macular degeneration. Cardiac: Reports: Afib, High Cholesterol, Other (See Below). Denies: Aneurysm, Arrhythmia, Blood Clots/VTE/DVT, CAD, Heart Failure, Hypertension, NH, Pacemaker, PVD/COD, Syncope Other Cardiac Family History: Brother with atrial fibrillation and hyperlipidemia. Respiratory: Reports: None. Denies: Asthma, COPD, PE, Pneumothorax, Sleep Apnea GI: Reports: Colon Polyps, Other (See Below). Denies: Celiac Disease, Cholelithiasis, GERD, GI bleed, Hepatitis, Inflammatory Bowel Disease, Irritable Bowel Syndrome, PUD Other GI Family History: Brother with colon cancer as below. : Reports: None. Denies: Renal Calculus, Renal Disease/Insufficiency OBGYN: Reports: None. Denies: Dysfunctional uterine bleeding, Endometriosis, Fibroids, Recurrent Spontaneous Musculoskeletal: Reports: Arthritis. Denies: Gout, RA, SLE Other Musculoskeletal Family History: Maternal aunts x2 with rheumatoid arthritis. Neurological: Reports: None. Denies: Alzheimers Disease, Cerebral Aneurysms, CVA, Dementia, Migraines, MS, Parkinson's, Seizure, TIA Psychiatric: Reports: None. Denies: Abuse, Victim of, ADD, ADHD, Anxiety, Depression, Psych Hospitalization(s), PTSD, Suicide Attempt Endocrine/Metabolic: Reports: None. Denies: Diabetes, Type I, Diabetes, type II, Diabetes Mellitus, Type 3c, Hypothyroidism, IDDM Hematologic: Reports: None. Denies: Anemia, SLE Immunologic: Reports: None. Denies: AIDS, HIV, SLE Dermatologic: Reports: Other (See Below). Denies: Eczema, Psoriasis Other Dermatologic Family History: Mother and 4 children with recurrent sebaceous cysts. Oncologic: Reports: Colon, Other (See Below). Denies: Breast, Cervix, Hodgkin's Lymphoma, Leukemia, Lung, Lymphoma, Ovarian, Renal, Skin, Uterine Other Oncologic Family History: Brother with colon cancer in his 60s. - Tobacco Use Tobacco Use Status *Q: Former Tobacco User Tobacco Use Within Last Twelve Months: No Years of Tobacco use: 54 Packs/Tins Daily: 1 Packs/Tins Daily Comment: Milk between ages 74 and 20. Used Tobacco, but Quit: Yes Smoking Cessation Information Provided To Patient: No Second Hand Smoke Exposure: No Second Hand Smoke Education Provided: No - Caffeine Use Caffeine Use: Reports: Coffee (3 cups/day), Tea (1 glass/day). Denies: Energy Drinks, Soda - Alcohol Use Alcohol Use History: No Days Per Week of Alcohol Use: 0 Number of Drinks Per Day: 0 Number of Drinks Per Day Comment: No previous DWIs, problems with alcohol abuse, etc. 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 ED EXAM, GENERAL - Physical Exam Exam: See Below (Use antibiotic eyedrops 2 drops in the affected eye(S) 4 times per day with every 2 hours as needed for at least 5 days AND until 48 hours after complete resolution of all symptoms. May use additional [id number] artificial tears as needed in addition to the above eyedrops.) Exam Limited By: No Limitations General Appearance: Alert, WD/WN, No Apparent Distress Eye Exam: Bilateral Eye: EOMI, Normal Inspection (Patient wears glasses. No nystagmus or vertigo), PERRL Ears: Normal External Exam, Normal Canal, Hearing Grossly Normal, Normal TMs Nose: Normal Inspection, Normal Mucosa, No Blood Throat/Mouth: Normal Inspection, Normal Lips, Normal Gums, Normal Oropharynx, Normal Voice, No Airway Compromise. No: Normal Teeth (Complete dentures uppers and lowers), Dysphagia, Perioral Cyanosis Head: Atraumatic, Normocephalic. No: Facial Swelling, Sinus Tenderness Neck: Normal Inspection, Supple, Non-Tender, Full Range of Motion, Carotid Bruit (Mild bilateral carotid bruits). No: Lymphadenopathy (L), Lymphadenopathy (R), Thyromegaly Respiratory/Chest: No Respiratory Distress, Normal Breath Sounds, No Accessory Muscle Use, Chest Non-Tender, Rales (Mild bilateral baseline). No: Rhonchi, Wheezing, Pleural Rub, Retractions Cardiovascular: Normal Peripheral Pulses, No Edema, No Gallop, No JVD, No Murmur, No Rub, Tachycardia, Irregularly Irregular. No: Gallop/S3, Gallop/S4, Extra Beats, Friction Rub Peripheral Pulses: 2+: Radial (L), Radial (R), Dorsalis Pedis (R) GI/Abdominal: Normal Bowel Sounds, Soft, Non-Tender, No Organomegaly, No Distention, No Abnormal Bruit, No Mass, Pelvis Stable. No: Guarding (Female) Exam: Deferred Rectal (Female) Exam: Deferred Back Exam: Full Range of Motion, Other (Mild scoliosis). No: CVA Tenderness (L), CVA Tenderness (R), Decreased Range of Motion, Muscle Spasm, Paraspinal Tenderness, Vertebral Tenderness Extremities: Normal Range of Motion, Non-Tender, No Pedal Edema, Normal Capillary Refill, Other (Left ankle/boot secondary to recent fracture as above.). No: Denia's Sign Neurological: Alert, Oriented, CN II-XII Intact, Normal Cognition, Normal Gait, Normal Reflexes, No Motor/Sensory Deficits Psychiatric: Normal Affect, Normal Mood Skin Exam: Warm, Dry, Intact, Normal Color, No Rash. No: Wound/Incision Lymphatic: No Adenopathy #1 Interpretation EKG Date: 06/17/20 Time: 19:11 Rhythm: A-Fib Rate (Beats/Min): 105 Watkins: RAD-Right Watkins Deviation P-Wave: Variable QRS: Normal (0.09 seconds) ST-T: Normal (With resolution of previous T wave inversions in leads V1 through V4 and possibly 3 and aVF.) QT: Normal MI/PQ Interval: Variable with resolution of previous first-degree AV block. Recurrent atrial fibrillation with newly diagnosed PVCs. Pulmonary hypertension by EKG. Course - Vital Signs Last Recorded V/S: Last Vital Signs Temp 36.6 C 06/17/20 18:17 Pulse 107 H 06/17/20 19:15 Resp 20 06/17/20 19:15 BP 125/62 06/17/20 19:15 Pulse Ox 98 06/17/20 19:15 Vital Signs - 24 hr 06/17/20 06/17/20 06/17/20 18:17 18:31 18:45 Temperature [ 36.6 C Temporal] Pulse, 134 H Peripheral Pulse, 134 H 125 H 114 H Peripheral [ Pulse Oximetry] Respiratory 18 19 18 Rate Blood Pressure 135/59 L Blood Pressure 135/59 L 136/65 122/72 [Right Upper Arm] O2 Sat by Pulse 98 97 98 Oximetry 06/17/20 06/17/20 19:00 19:15 Temperature [ Temporal] Pulse, Peripheral Pulse, 102 H 107 H Peripheral [ Pulse Oximetry] Respiratory 20 20 Rate Blood Pressure Blood Pressure 120/80 125/62 [Right Upper Arm] O2 Sat by Pulse 98 98 Oximetry - Orders/Labs/Meds Orders: Active Orders 24 hr Category Date Time Status Cardiac Monitoring [RC] . DIRECTED Care 06/17/20 18:31 Active EKG Documentation Completion [RC] ASDIRECTED Care 06/17/20 18:31 Active Oxygen Therapy, ED [RC] PRN Care 06/17/20 18:31 Active Peripheral IV Care [RC] . DIRECTED Care 06/17/20 18:31 Active Pulse Oximetry [RC] CONTINUOUS Care 06/17/20 18:31 Active Up With Assistance [RC] PFP Care 06/17/20 18:31 Active Vital Signs [RC] PFP Care 06/17/20 18:31 Active Nothing per Oral Now Diet [DIET] Diet 06/17/20 Breakfast Active Chest 1V Frontal [CR] Stat Exams 06/17/20 18:31 Taken Sodium Chloride 0.9% [Saline Flush] Med 06/17/20 18:31 Active 10 ml FLUSH ASDIRECTED PRN Obtain Past Medical Record [OM.PC] Urgent Oth 06/17/20 18:31 Active Peripheral IV Insertion Adult [OM.PC] Stat Oth 06/17/20 18:31 Ordered Resuscitation Status Stat Resus Stat 06/17/20 18:31 Ordered Medication Orders Sodium Chloride (Saline Flush) 10 ml FLUSH ASDIRECTED PRN PRN Reason: Keep Vein Open Last Admin: 06/17/20 18:48 Dose: 10 ml Documented by: KATIE Labs: Laboratory Tests 06/17/20 06/17/20 06/17/20 Range/Units 18:35 18:35 18:35 WBC 9.1 (4.0-10.2) K/uL RBC 4.40 (3.77-5.09) M/uL Hgb 12.8 (11.7-15.5) g/dL Hct 38.8 (34.0-46.0) % MCV 88.2 (84.0-98.0) fL MCH 29.1 (28.2-33.3) pg MCHC 33.0 (31.7-36.0) g/dL RDW 14.2 H (11.2-14.1) % Plt Count 218 (150-350) K/uL Neut % (Auto) 70.6 (45.0-80.0) % Lymph % (Auto) 17.2 (10.0-50.0) % [place] % (Auto) 9.5 (2.0-14.0) % Eos % (Auto) 2.2 (0.0-5.0) % Baso % (Auto) 0.5 (0.0-2.0) % Neut # (Auto) 6.42 (1.40-7.00) K/uL Lymph # (Auto) 1.57 (0.50-3.50) K/uL [place] # (Auto) 0.87 (0.00-1.00) K/uL Eos # (Auto) 0.20 (0.00-0.50) K/uL Baso # (Auto) 0.05 (0.00-0.20) K/uL PT 27.1 H (9.5-12.0) SEC INR 2.8 APTT 38.3 H (24.5-32.8) SEC D-Dimer, Quantitative 291 (0-400) ng/mL Sodium (136-145) mmol/L Potassium (3.5-5.1) mmol/L Chloride (98-107) mmol/L Carbon Dioxide (21.0-32.0) mmol/L BUN (7-18) mg/dL Creatinine (0.51-1.17) mg/dL Est Cr Clr Drug Dosing mL/min Estimated GFR (MDRD) mL/min Glucose (70-99) mg/dL Lactic Acid (0.4-2.0) mmol/L Uric Acid (2.6-7.2) mg/dL Calcium (8.5-10.1) mg/dL Magnesium (1.8-2.4) mg/dL Total Bilirubin (0.2-1.0) mg/dL AST (15-37) U/L ALT (12-78) U/L Alkaline Phosphatase (46-116) IU/L Creatine Kinase (26-308) U/L Creatine Kinase Index (0.0-2.5) % CK-MB (CK-2) (0.00-3.60) ng/mL Troponin I (0.000-0.056) ng/mL NT-Pro-B Natriuret Pep (0-125) pg/mL Total Protein (6.4-8.2) g/dL Albumin (3.4-5.0) g/dL TSH, Ultra Sensitive (0.358-3.740) mIU/mL 06/17/20 06/17/20 Range/Units 18:35 18:35 WBC (4.0-10.2) K/uL RBC (3.77-5.09) M/uL Hgb (11.7-15.5) g/dL Hct (34.0-46.0) % MCV (84.0-98.0) fL MCH (28.2-33.3) pg MCHC (31.7-36.0) g/dL RDW (11.2-14.1) % Plt Count (150-350) K/uL Neut % (Auto) (45.0-80.0) % Lymph % (Auto) (10.0-50.0) % [place] % (Auto) (2.0-14.0) % Eos % (Auto) (0.0-5.0) % Baso % (Auto) (0.0-2.0) % Neut # (Auto) (1.40-7.00) K/uL Lymph # (Auto) (0.50-3.50) K/uL [place] # (Auto) (0.00-1.00) K/uL Eos # (Auto) (0.00-0.50) K/uL Baso # (Auto) (0.00-0.20) K/uL PT (9.5-12.0) SEC INR APTT (24.5-32.8) SEC D-Dimer, Quantitative (0-400) ng/mL Sodium 137 (136-145) mmol/L Potassium 4.1 (3.5-5.1) mmol/L Chloride 100 (98-107) mmol/L Carbon Dioxide 27.7 (21.0-32.0) mmol/L BUN 19 H (7-18) mg/dL Creatinine 0.93 (0.51-1.17) mg/dL Est Cr Clr Drug Dosing 45.58 mL/min Estimated GFR (MDRD) 58 mL/min Glucose 95 (70-99) mg/dL Lactic Acid 0.6 (0.4-2.0) mmol/L Uric Acid 6.4 (2.6-7.2) mg/dL Calcium 9.4 (8.5-10.1) mg/dL Magnesium 2.0 (1.8-2.4) mg/dL Total Bilirubin 0.6 (0.2-1.0) mg/dL AST 20 (15-37) U/L ALT 28 (12-78) U/L Alkaline Phosphatase 71 (46-116) IU/L Creatine Kinase 105 (26-308) U/L Creatine Kinase Index 1.6 (0.0-2.5) % CK-MB (CK-2) 1.70 (0.00-3.60) ng/mL Troponin I 0.003 (0.000-0.056) ng/mL NT-Pro-B Natriuret Pep 818 H (0-125) pg/mL Total Protein 7.6 (6.4-8.2) g/dL Albumin 4.0 (3.4-5.0) g/dL TSH, Ultra Sensitive 0.668 (0.358-3.740) mIU/mL Meds: Medications Generic Name Dose Route Start Last Admin Trade Name Freq PRN Reason Stop Dose Admin Sodium Chloride 10 ml 06/17/20 18:31 06/17/20 18:48 Saline Flush FLUSH 10 ml ASDIRECTED PRN Administration Keep Vein Open Discontinued Medications Generic Name Dose Route Start Last Admin Trade Name Freq PRN Reason Stop Dose Admin Diltiazem HCl 180 mg 06/17/20 19:37 06/17/20 20:09 Cardizem Cd PO 06/17/20 19:38 180 mg ONETIME ONE Administration Famotidine 40 mg 06/17/20 18:31 06/17/20 18:46 Pepcid IVPUSH 06/17/20 18:32 40 mg ONETIME ONE Administration Metoprolol Tartrate 2.5 mg 06/17/20 18:31 06/17/20 18:45 Lopressor IVPUSH 06/17/20 18:32 2.5 mg ONETIME ONE Administration - Radiology Interpretation Free Text/Narrative:: 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 Note improvement of heart rate to the 90s to low 100s prior to admission. Chest x-ray, portable, shows mild aortic valve calcification with mild cardiomegaly and prominence of the proximal aortic arch with no borderline CHF. Right upper lobe sclerotic lesion consistent with previous lung cancer. Moderate diffuse pulmonary emphysematous and fibrotic change with no significant pulmonary infiltrates, pneumothorax, etc. Departure - Departure Time of Disposition: 21:20 Disposition: Admitted As Inpatient 68 Condition: Fair Clinical Impression: Atrial fibrillation with rapid ventricular response, PVCs (premature ventricular contractions) COPD (chronic obstructive pulmonary disease) Qualifiers: COPD type: emphysema Emphysema type: panlobular Qualified Code(s): J43.1 - Panlobular emphysema CHF (congestive heart failure) Qualifiers: Heart failure type: unspecified Heart failure chronicity: acute Qualified Code(s): I50.9 - Heart failure, unspecified Osteoarthritis Qualifiers: Osteoarthritis location: multiple joints Osteoarthritis type: primary Qualified Code(s): M89.49 - Other hypertrophic osteoarthropathy, multiple sites Hyperlipidemia Qualifiers: Hyperlipidemia type: mixed hyperlipidemia Qualified Code(s): E78.2 - Mixed hyperlipidemia Hypertension Qualifiers: Hypertension type: essential hypertension Qualified Code(s): I10 - Essential (primary) hypertension Sepsis Event Note (ED) - Evaluation Sepsis Screening Result: No Definite Risk - Focused Exam Vital Signs: Vital Signs Temp Pulse Pulse Resp BP BP Pulse Ox 06/17/20 19:15 107 H 20 125/62 98 06/17/20 19:00 102 H 20 120/80 98 06/17/20 18:45 134 H 114 H 18 135/59 L 122/72 98 06/17/20 18:31 125 H 19 136/65 97 06/17/20 18:17 36.6 C 134 H 18 135/59 L 98 - Problem List & Annotations (1) Atrial fibrillation with rapid ventricular response SNOMED Code(s): 829451879311161 Code(s): I48.91 - UNSPECIFIED ATRIAL FIBRILLATION Status: Acute Priority: High Current Visit: Yes Annotation/Comment:: Recurrent atrial fibrillation with rapid ventricular response with overall good response to IV Lopressor therapy as above. Patient's Cardizem CD will be increased to 180 mg p.o. at bedtime with her dose given early in the emergency room. Cardiology consultation, etc. depending on her clinical course. She denies any chest pain or anginal type symptoms with chest pain protocol not initiated in the emergency room. Note resolution of previous anteroinferior ischemia with no previous heart catheterization. Initiate standard rule out NH orders. Consider event monitor, etc. depending on her clinical course. (2) CHF (congestive heart failure) SNOMED Code(s): 65859625 Code(s): I50.9 - HEART FAILURE, UNSPECIFIED Status: Acute Priority: High Current Visit: Yes Onset Date: 06/17/20 Annotation/Comment:: Mild CHF likely secondary to her atrial fibrillation/tachycardia as above. Echocardiogram to be repeated in the a.m. Initiate IV Lasix therapy. Qualifiers: Heart failure type: unspecified Heart failure chronicity: acute Qualified Code(s): I50.9 - Heart failure, unspecified (3) Osteoarthritis SNOMED Code(s): 138290923 Code(s): M19.90 - UNSPECIFIED OSTEOARTHRITIS, UNSPECIFIED SITE Status: Chronic Priority: Medium Current Visit: Yes Annotation/Comment:: History of rheumatoid arthritisstable by history. Qualifiers: Osteoarthritis location: multiple joints Osteoarthritis type: primary Qualified Code(s): M89.49 - Other hypertrophic osteoarthropathy, multiple sites (4) PVCs (premature ventricular contractions) SNOMED Code(s): 01883909 Code(s): I49.3 - VENTRICULAR PREMATURE DEPOLARIZATION Status: Acute Priority: Medium Current Visit: Yes Onset Date: 06/17/20 Annotation/Comment:: Newly diagnosed. IV Lopressor given as above with initiation of additional Toprol-XL in the a.m. 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 No recent fever bronchitic type symptoms. Qualifiers: COPD type: emphysema Emphysema type: panlobular Qualified Code(s): J43.1 - Panlobular emphysema (6) Hyperlipidemia SNOMED Code(s): 79504582 Code(s): E78.5 - HYPERLIPIDEMIA, UNSPECIFIED Status: Chronic Priority: Medium Current Visit: Yes Annotation/Comment:: Under therapy. Lipid panel glycosylated hemoglobin in the a.m. Qualifiers: Hyperlipidemia type: mixed hyperlipidemia Qualified Code(s): E78.2 - Mixed hyperlipidemia (7) Hypertension SNOMED Code(s): 07479594 Code(s): I10 - ESSENTIAL (PRIMARY) HYPERTENSION Status: Chronic Priority: Medium Current Visit: Yes Annotation/Comment:: Stable in the emergency room and by history. Qualifiers: Hypertension type: essential hypertension Qualified Code(s): I10 - Essential (primary) hypertension - Problem List Review Problem List Initiated/Reviewed/Updated: Yes - My Orders Last 24 Hours: My Active Orders 06/17/20 Breakfast Nothing per Oral Now Diet [DIET] 06/17/20 18:31 Cardiac Monitoring [RC] . DIRECTED EKG Documentation Completion [RC] ASDIRECTED Oxygen Therapy, ED [RC] PRN Peripheral IV Care [RC] . DIRECTED Pulse Oximetry [RC] CONTINUOUS Up With Assistance [RC] PFP Vital Signs [RC] PFP Chest 1V Frontal [CR] Stat Sodium Chloride 0.9% [Saline Flush] 10 ml FLUSH ASDIRECTED PRN Obtain Past Medical Record [OM.PC] Urgent Peripheral IV Insertion Adult [OM.PC] Stat Resuscitation Status Stat - Assessment/Plan Admission H&P: Please use this note as an admission H&P Last 24 Hours: My Active Orders 06/17/20 Breakfast Nothing per Oral Now Diet [DIET] 06/17/20 18:31 Cardiac Monitoring [RC] . DIRECTED EKG Documentation Completion [RC] ASDIRECTED Oxygen Therapy, ED [RC] PRN Peripheral IV Care [RC] . DIRECTED Pulse Oximetry [RC] CONTINUOUS Up With Assistance [RC] PFP Vital Signs [RC] PFP Chest 1V Frontal [CR] Stat Sodium Chloride 0.9% [Saline Flush] 10 ml FLUSH ASDIRECTED PRN Obtain Past Medical Record [OM.PC] Urgent Peripheral IV Insertion Adult [OM.PC] Stat Resuscitation Status Stat Assessment:: As above Plan: As above. Extensive precautions were given to the patient and her family, who are in agreement with the treatment plan. The patient will require about 3-4 days of inpatient/acute care secondary to multiple health problems as above.
[2020-06-17] MEDS ORDERED: Famotidine 20 MG/2 ML SDV IVPUSH ONE (18:31)
[2020-06-17] MEDS ORDERED: Metoprolol Tartrate 5 MG/5 ML SDV IVPUSH ONE (18:31)
[2020-06-17] MEDS: Sodium Chloride 0.9% 10 ML Syringe FLUSH PRN (18:48)
[2020-06-17 19:09] LABS: PTT,PARTIAL THROMBOPLSTIN TIME 38.3 SEC (24.5-32.8)
[2020-06-17] MEDS ORDERED: Diltiazem 180 MG Cap.CD PO ONE (19:37)
[2020-06-17] MEDS ORDERED: Temazepam 15 MG Cap PO PRN (22:18)
[2020-06-17] MEDS ORDERED: Acetaminophen 325 MG Tab PO PRN (22:18)
[2020-06-17] MEDS ORDERED: Sodium Chloride 0.9% 10 ML Syringe FLUSH PRN (22:18)
[2020-06-17] MEDS ORDERED: Albuterol 0.083% 2.5 MG/3 ML Neb Soln INH PRN (22:21)
[2020-06-18] MEDS: Furosemide 40 MG/4 ML VIAL IVPUSH SCH ×4 (00:21→17:42)
[2020-06-18] MEDS: Sodium Chloride 0.9% 10 ML Syringe FLUSH PRN ×3 (00:22→17:35)
[2020-06-18] MEDS ORDERED: Albuterol/Ipratropium 4 GM Inhalation Spray INH SCH (08:00)
[2020-06-18] MEDS ORDERED: Spironolactone 25 MG Tab PO SCH (08:00)
[2020-06-18 08:02] LABS: HEMOGLOBIN A1C 5.3 % (4.3-5.7)
[2020-06-18] MEDS: Metoprolol Succinate 25 MG Tab.ER PO SCH (08:52)
[2020-06-18] MEDS: Potassium Chloride 20 MEQ Tab.ER PO SCH ×3 (08:52→17:30)
[2020-06-18] MEDS: Albuterol/Ipratropium 4 GM Inhalation Spray INH SCH ×4 (08:53→19:58)
--- NOTE | 2020-06-18 10:04 | PCM.PN ---
- General Info Date of Service: 06/18/20 Admission Dx/Problem (Free Text): 1. CHF 2. Atrial fibrillation with rapid ventricular response Functional Status: Reports: Pain Controlled, Ambulating, Urinating, Incentive Spirometry. Denies: Tolerating Diet (N.p.o. however wishes to have breakfast), New Symptoms Pain Score: 0 - Review of Systems General: Reports: No Symptoms. Denies: Fever, Weakness, Fatigue, Malaise, Night Sweats, Appetite (Good) HEENT: Reports: No Symptoms. Denies: Ear Pain, Eye Pain, Headaches, Post Nasal Drip, Sinus Congestion, Sore Throat, Rhinitis, Visual Changes Pulmonary: Reports: No Symptoms. Denies: Shortness of Breath, Pleuritic Chest Pain, Cough, Sputum, Hemoptysis, Wheezing Cardiovascular: Reports: No Symptoms. Denies: Chest Pain, Palpitations, Dyspnea on Exertion, Orthopnea, PND, Edema, Lightheadedness, Other Gastrointestinal: Reports: No Symptoms, Other (No bowel movement since admission ). Denies: Abdominal Pain, Constipation, Decreased Appetite, Diarrhea, Difficulty Swallowing, Flatus, Hematochezia, Melena, Nausea, Vomiting Genitourinary: Reports: No Symptoms. Denies: Dysuria, Frequency, Burning, Pain, Urgency, Incontinence, Hematuria, Retention, Flank Pain Musculoskeletal: Reports: Leg Pain (Stable left ankle pain secondary to recent fracture), Foot Pain (Some radiation of her left ankle pain into her foot). Denies: Neck Pain, Shoulder Pain, Arm Pain, Hand Pain, Joint Pain, Other Skin: Reports: Bruising (Stable secondary to Coumadin therapy). Denies: Pallor, Diaphoresis, Rash Neurological: Reports: No Symptoms. Denies: Confusion, Dizziness, Numbness, Paresthesia, Tingling, Difficulty Walking (Although left ankle/foot boot is required), Weakness Psychiatric: Reports: No Symptoms. Denies: Confusion, Depression, Agitation, Cravings, Hallucinations - Patient Data Vitals - Most Recent: Last Vital Signs Temp 36.3 C 06/18/20 04:00 Pulse 86 06/18/20 08:52 Resp 20 06/18/20 04:00 BP 102/58 L 06/18/20 08:52 Pulse Ox 97 06/18/20 04:00 Vital Signs - 24 hr 06/17/20 06/17/20 06/17/20 18:17 18:31 18:45 Temperature [ Oral] Temperature [ 36.6 C Temporal] Pulse, 134 H Peripheral Pulse, 134 H 125 H 114 H Peripheral [ Pulse Oximetry] Respiratory 18 19 18 Rate Blood Pressure 135/59 L Blood Pressure 135/59 L 136/65 122/72 [Right Upper Arm] O2 Sat by Pulse 98 97 98 Oximetry 06/17/20 06/17/20 06/17/20 19:00 19:15 19:30 Temperature [ Oral] Temperature [ 36.8 C Temporal] Pulse, Peripheral Pulse, 102 H 107 H 98 Peripheral [ Pulse Oximetry] Respiratory 20 20 20 Rate Blood Pressure Blood Pressure 120/80 125/62 133/75 [Right Upper Arm] O2 Sat by Pulse 98 98 98 Oximetry 06/17/20 06/17/20 06/18/20 22:00 22:18 00:26 Temperature [ 36.6 C 36.3 C Oral] Temperature [ Temporal] Pulse, Peripheral Pulse, 84 64 Peripheral [ Pulse Oximetry] Respiratory 20 20 Rate Blood Pressure Blood Pressure 113/68 93/45 L [Right Upper Arm] O2 Sat by Pulse 99 97 98 Oximetry 06/18/20 06/18/20 04:00 08:52 Temperature [ Oral] Temperature [ 36.3 C Temporal] Pulse, 86 Peripheral Pulse, 82 Peripheral [ Pulse Oximetry] Respiratory 20 Rate Blood Pressure 102/58 L Blood Pressure 95/63 [Right Upper Arm] O2 Sat by Pulse 97 Oximetry Weight - Most Recent: 76.022 kg I&O - Last 24 Hours: Intake & Output 06/17/20 06/18/20 06/18/20 22:59 06:59 14:59 Intake Total 120 Output Total 1500 Balance -1380 Imaging Impressions - Last 24 Hours: 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 Lab Results Last 24 Hours: Laboratory Results - last 24 hr 06/17/20 06/17/20 06/17/20 Range/Units 18:35 18:35 18:35 WBC 9.1 (4.0-10.2) K/uL RBC 4.40 (3.77-5.09) M/uL Hgb 12.8 (11.7-15.5) g/dL Hct 38.8 (34.0-46.0) % MCV 88.2 (84.0-98.0) fL MCH 29.1 (28.2-33.3) pg MCHC 33.0 (31.7-36.0) g/dL RDW 14.2 H (11.2-14.1) % Plt Count 218 (150-350) K/uL Neut % (Auto) 70.6 (45.0-80.0) % Lymph % (Auto) 17.2 (10.0-50.0) % Hawkins % (Auto) 9.5 (2.0-14.0) % Eos % (Auto) 2.2 (0.0-5.0) % Baso % (Auto) 0.5 (0.0-2.0) % Neut # (Auto) 6.42 (1.40-7.00) K/uL Lymph # (Auto) 1.57 (0.50-3.50) K/uL Hawkins # (Auto) 0.87 (0.00-1.00) K/uL Eos # (Auto) 0.20 (0.00-0.50) K/uL Baso # (Auto) 0.05 (0.00-0.20) K/uL PT 27.1 H (9.5-12.0) SEC INR 2.8 APTT 38.3 H (24.5-32.8) SEC D-Dimer, Quantitative 291 (0-400) ng/mL Sodium (136-145) mmol/L Potassium (3.5-5.1) mmol/L Chloride (98-107) mmol/L Carbon Dioxide (21.0-32.0) mmol/L BUN (7-18) mg/dL Creatinine (0.51-1.17) mg/dL Est Cr Clr Drug Dosing mL/min Estimated GFR (MDRD) mL/min Glucose (70-99) mg/dL Hemoglobin A1c (4.3-5.7) % Lactic Acid (0.4-2.0) mmol/L Uric Acid (2.6-7.2) mg/dL Calcium (8.5-10.1) mg/dL Magnesium (1.8-2.4) mg/dL Total Bilirubin (0.2-1.0) mg/dL AST (15-37) U/L ALT (12-78) U/L Alkaline Phosphatase (46-116) IU/L Creatine Kinase (26-308) U/L Creatine Kinase Index (0.0-2.5) % CK-MB (CK-2) (0.00-3.60) ng/mL Troponin I (0.000-0.056) ng/mL NT-Pro-B Natriuret Pep (0-125) pg/mL Total Protein (6.4-8.2) g/dL Albumin (3.4-5.0) g/dL Triglycerides (30-150) mg/dL Cholesterol (100-200) mg/dL LDL Cholesterol, Calc (0-100) mg/dL HDL Cholesterol (40-60) mg/dL TSH, Ultra Sensitive (0.358-3.740) mIU/mL 06/17/20 06/17/20 06/18/20 Range/Units 18:35 18:35 07:20 WBC 6.8 (4.0-10.2) K/uL RBC 4.42 (3.77-5.09) M/uL Hgb 12.9 (11.7-15.5) g/dL Hct 39.2 (34.0-46.0) % MCV 88.7 (84.0-98.0) fL MCH 29.2 (28.2-33.3) pg MCHC 32.9 (31.7-36.0) g/dL RDW 14.5 H (11.2-14.1) % Plt Count 216 (150-350) K/uL Neut % (Auto) 58.5 (45.0-80.0) % Lymph % (Auto) 23.6 (10.0-50.0) % Hawkins % (Auto) 13.0 (2.0-14.0) % Eos % (Auto) 4.3 (0.0-5.0) % Baso % (Auto) 0.6 (0.0-2.0) % Neut # (Auto) 3.96 (1.40-7.00) K/uL Lymph # (Auto) 1.60 (0.50-3.50) K/uL Hawkins # (Auto) 0.88 (0.00-1.00) K/uL Eos # (Auto) 0.29 (0.00-0.50) K/uL Baso # (Auto) 0.04 (0.00-0.20) K/uL PT (9.5-12.0) SEC INR APTT (24.5-32.8) SEC D-Dimer, Quantitative (0-400) ng/mL Sodium 137 (136-145) mmol/L Potassium 4.1 (3.5-5.1) mmol/L Chloride 100 (98-107) mmol/L Carbon Dioxide 27.7 (21.0-32.0) mmol/L BUN 19 H (7-18) mg/dL Creatinine 0.93 (0.51-1.17) mg/dL Est Cr Clr Drug Dosing 45.58 mL/min Estimated GFR (MDRD) 58 mL/min Glucose 95 (70-99) mg/dL Hemoglobin A1c (4.3-5.7) % Lactic Acid 0.6 (0.4-2.0) mmol/L Uric Acid 6.4 (2.6-7.2) mg/dL Calcium 9.4 (8.5-10.1) mg/dL Magnesium 2.0 (1.8-2.4) mg/dL Total Bilirubin 0.6 (0.2-1.0) mg/dL AST 20 (15-37) U/L ALT 28 (12-78) U/L Alkaline Phosphatase 71 (46-116) IU/L Creatine Kinase 105 (26-308) U/L Creatine Kinase Index 1.6 (0.0-2.5) % CK-MB (CK-2) 1.70 (0.00-3.60) ng/mL Troponin I 0.003 (0.000-0.056) ng/mL NT-Pro-B Natriuret Pep 818 H (0-125) pg/mL Total Protein 7.6 (6.4-8.2) g/dL Albumin 4.0 (3.4-5.0) g/dL Triglycerides (30-150) mg/dL Cholesterol (100-200) mg/dL LDL Cholesterol, Calc (0-100) mg/dL HDL Cholesterol (40-60) mg/dL TSH, Ultra Sensitive 0.668 (0.358-3.740) mIU/mL 06/18/20 06/18/20 Range/Units 07:20 07:20 WBC (4.0-10.2) K/uL RBC (3.77-5.09) M/uL Hgb (11.7-15.5) g/dL Hct (34.0-46.0) % MCV (84.0-98.0) fL MCH (28.2-33.3) pg MCHC (31.7-36.0) g/dL RDW (11.2-14.1) % Plt Count (150-350) K/uL Neut % (Auto) (45.0-80.0) % Lymph % (Auto) (10.0-50.0) % Hawkins % (Auto) (2.0-14.0) % Eos % (Auto) (0.0-5.0) % Baso % (Auto) (0.0-2.0) % Neut # (Auto) (1.40-7.00) K/uL Lymph # (Auto) (0.50-3.50) K/uL Hawkins # (Auto) (0.00-1.00) K/uL Eos # (Auto) (0.00-0.50) K/uL Baso # (Auto) (0.00-0.20) K/uL PT (9.5-12.0) SEC INR APTT (24.5-32.8) SEC D-Dimer, Quantitative (0-400) ng/mL Sodium 139 (136-145) mmol/L Potassium 3.6 (3.5-5.1) mmol/L Chloride 100 (98-107) mmol/L Carbon Dioxide 29.8 (21.0-32.0) mmol/L BUN 16 (7-18) mg/dL Creatinine 0.93 (0.51-1.17) mg/dL Est Cr Clr Drug Dosing 45.58 mL/min Estimated GFR (MDRD) 58 mL/min Glucose 92 (70-99) mg/dL Hemoglobin A1c 5.3 (4.3-5.7) % Lactic Acid (0.4-2.0) mmol/L Uric Acid (2.6-7.2) mg/dL Calcium 9.5 (8.5-10.1) mg/dL Magnesium (1.8-2.4) mg/dL Total Bilirubin 0.8 (0.2-1.0) mg/dL AST 23 (15-37) U/L ALT 33 (12-78) U/L Alkaline Phosphatase 66 (46-116) IU/L Creatine Kinase 102 (26-308) U/L Creatine Kinase Index 1.6 (0.0-2.5) % CK-MB (CK-2) 1.60 (0.00-3.60) ng/mL Troponin I 0.005 (0.000-0.056) ng/mL NT-Pro-B Natriuret Pep 873 H (0-125) pg/mL Total Protein 7.2 (6.4-8.2) g/dL Albumin 3.7 (3.4-5.0) g/dL Triglycerides 117 (30-150) mg/dL Cholesterol 208 H (100-200) mg/dL LDL Cholesterol, Calc 120 H (0-100) mg/dL HDL Cholesterol 65 H (40-60) mg/dL TSH, Ultra Sensitive (0.358-3.740) mIU/mL Maksim Results Last 24 Hours: None Med Orders - Current: Current Medications Acetaminophen (Tylenol) 650 mg PO Q4H PRN PRN Reason: Pain Albuterol (Proventil Neb Soln) 2.5 mg INH Q2H PRN PRN Reason: SHORTNESS OF BREATH Albuterol/Ipratropium (Combivent Respimat) 0 gm INH QIDRT [facility] Last Admin: 06/18/20 08:53 Dose: 2 puff Documented by: Atorvastatin Calcium (Lipitor) 20 mg PO BEDTIME ALEJANDRO Azithromycin (Zithromax) 250 mg PO MOWEFR@0800 [facility] Diltiazem HCl (Cardizem Cd) 180 mg PO BEDTIME ALEJANDRO Ezetimibe (Zetia) 10 mg PO BEDTIME [facility] Furosemide (Lasix) 40 mg IVPUSH Q8HR [facility] Last Admin: 06/18/20 08:53 Dose: 40 mg Documented by: Metoprolol Succinate (Toprol Xl) 25 mg PO DAILY [facility] Last Admin: 06/18/20 08:52 Dose: 25 mg Documented by: Potassium Chloride (Klor-Con M20) 20 meq PO TID [facility] Last Admin: 06/18/20 08:52 Dose: 20 meq Documented by: Sodium Chloride (Saline Flush) 10 ml FLUSH ASDIRECTED PRN PRN Reason: Keep Vein Open Last Admin: 06/18/20 08:53 Dose: 10 ml Documented by: Sodium Chloride (Saline Flush) 10 ml FLUSH Q12HR PRN PRN Reason: Keep Vein Open Temazepam (Restoril) 15 mg PO BEDTIME PRN PRN Reason: Insomnia Warfarin Sodium (Coumadin) 5 mg PO MOWE@1800 [facility] Warfarin Sodium (Coumadin) 7.5 mg PO SUTUTHFRSA@1800 [facility] Discontinued Medications Albuterol/Ipratropium (Combivent Respimat) 0 gm INH QID [facility] Diltiazem HCl (Cardizem Cd) 180 mg PO ONETIME ONE Stop: 06/17/20 19:38 Last Admin: 06/17/20 20:09 Dose: 180 mg Documented by: Famotidine (Pepcid) 40 mg IVPUSH ONETIME ONE Stop: 06/17/20 18:32 Last Admin: 06/17/20 18:46 Dose: 40 mg Documented by: Metoprolol Tartrate (Lopressor) 2.5 mg IVPUSH ONETIME ONE Stop: 06/17/20 18:32 Last Admin: 06/17/20 18:45 Dose: 2.5 mg Documented by: Spironolactone (Aldactone) 25 mg PO DAILY [facility] Last Admin: 06/18/20 08:52 Dose: Not Given Documented by: - Exam Quality Assessment: Supplemental Oxygen, DVT Prophylaxis (Coumadin). No: Central Line/PICC, Urine Catheter, Skin Breakdown, Restraints General: Alert, Oriented, Cooperative, No Acute Distress HEENT: Pupils Equal, Pupils Reactive, EOMI, Mucous Membr. Moist/[place]. No: Scleral Icterus Neck: Supple, Trachea Midline, No JVD, No Thyromegaly Lungs: Normal Respiratory Effort, Rales (Mild bilateral baseline). No: Rhonchi, Rub, Wheezing Cardiovascular: Regular Rate, No Murmurs, Irregular Rhythm. No: Gallops, Rubs GI/Abdominal Exam: Normal Bowel Sounds, Soft, Non-Tender, No Organomegaly, No Distention, No Abnormal Bruit, No Mass. No: Guarding (Female) Exam: Deferred Back Exam: Full Range of Motion, Other (Mild scoliosis). No: CVA Tenderness (L), CVA Tenderness (R), Muscle Spasm, Paraspinal Tenderness, Vertebral Tenderness Extremities: Normal Capillary Refill, Pedal Edema, Leg Pain (Stable left ankle), Limited Range of Motion (Stable left ankle secondary to recent fracture), Other (Patient is in bed and not wearing her left ankle boot). No: No Pedal Edema, Denia's Sign Peripheral Pulses: 2+: Radial (L), Radial (R), Dorsalis Pedis (L), Dorsalis Ped is (R) Skin: Warm, Dry, Intact, Ecchymosis (Stable occasional on all extremities secondary to chemotherapy with no petechiae) Neurological: No New Focal Deficit, Other (Negative Babinski's, no clinical orthostasis.) Psy/Mental Status: Alert, Normal Affect, Normal Mood. No: Agitated, Hallucinations, Withdrawal Symptoms #1 Interpretation EKG Date: 06/18/20 Time: 07:55 Rhythm: A-Flutter Rate (Beats/Min): 74 Braxton: RAD-Right Braxton Deviation (Extended right) P-Wave: Variable QRS: Normal (0.09 seconds) ST-T: Normal QT: Normal OR/PQ Interval: Not applicable. Pulmonary hypertension by EKG. Comparison: No Change (06/17/2020) EKG Interpretation Comments: 1. Atrial flutter with history of PVCs 2. No acute ischemic changes - Patient Data Lab Results Last 24 hrs: Laboratory Results - last 24 hr 06/17/20 06/17/20 06/17/20 Range/Units 18:35 18:35 18:35 WBC 9.1 (4.0-10.2) K/uL RBC 4.40 (3.77-5.09) M/uL Hgb 12.8 (11.7-15.5) g/dL Hct 38.8 (34.0-46.0) % MCV 88.2 (84.0-98.0) fL MCH 29.1 (28.2-33.3) pg MCHC 33.0 (31.7-36.0) g/dL RDW 14.2 H (11.2-14.1) % Plt Count 218 (150-350) K/uL Neut % (Auto) 70.6 (45.0-80.0) % Lymph % (Auto) 17.2 (10.0-50.0) % Hawkins % (Auto) 9.5 (2.0-14.0) % Eos % (Auto) 2.2 (0.0-5.0) % Baso % (Auto) 0.5 (0.0-2.0) % Neut # (Auto) 6.42 (1.40-7.00) K/uL Lymph # (Auto) 1.57 (0.50-3.50) K/uL Hawkins # (Auto) 0.87 (0.00-1.00) K/uL Eos # (Auto) 0.20 (0.00-0.50) K/uL Baso # (Auto) 0.05 (0.00-0.20) K/uL PT 27.1 H (9.5-12.0) SEC INR 2.8 APTT 38.3 H (24.5-32.8) SEC D-Dimer, Quantitative 291 (0-400) ng/mL Sodium (136-145) mmol/L Potassium (3.5-5.1) mmol/L Chloride (98-107) mmol/L Carbon Dioxide (21.0-32.0) mmol/L BUN (7-18) mg/dL Creatinine (0.51-1.17) mg/dL Est Cr Clr Drug Dosing mL/min Estimated GFR (MDRD) mL/min Glucose (70-99) mg/dL Hemoglobin A1c (4.3-5.7) % Lactic Acid (0.4-2.0) mmol/L Uric Acid (2.6-7.2) mg/dL Calcium (8.5-10.1) mg/dL Magnesium (1.8-2.4) mg/dL Total Bilirubin (0.2-1.0) mg/dL AST (15-37) U/L ALT (12-78) U/L Alkaline Phosphatase (46-116) IU/L Creatine Kinase (26-308) U/L Creatine Kinase Index (0.0-2.5) % CK-MB (CK-2) (0.00-3.60) ng/mL Troponin I (0.000-0.056) ng/mL NT-Pro-B Natriuret Pep (0-125) pg/mL Total Protein (6.4-8.2) g/dL Albumin (3.4-5.0) g/dL Triglycerides (30-150) mg/dL Cholesterol (100-200) mg/dL LDL Cholesterol, Calc (0-100) mg/dL HDL Cholesterol (40-60) mg/dL TSH, Ultra Sensitive (0.358-3.740) mIU/mL 06/17/20 06/17/20 06/18/20 Range/Units 18:35 18:35 07:20 WBC 6.8 (4.0-10.2) K/uL RBC 4.42 (3.77-5.09) M/uL Hgb 12.9 (11.7-15.5) g/dL Hct 39.2 (34.0-46.0) % MCV 88.7 (84.0-98.0) fL MCH 29.2 (28.2-33.3) pg MCHC 32.9 (31.7-36.0) g/dL RDW 14.5 H (11.2-14.1) % Plt Count 216 (150-350) K/uL Neut % (Auto) 58.5 (45.0-80.0) % Lymph % (Auto) 23.6 (10.0-50.0) % Hawkins % (Auto) 13.0 (2.0-14.0) % Eos % (Auto) 4.3 (0.0-5.0) % Baso % (Auto) 0.6 (0.0-2.0) % Neut # (Auto) 3.96 (1.40-7.00) K/uL Lymph # (Auto) 1.60 (0.50-3.50) K/uL Hawkins # (Auto) 0.88 (0.00-1.00) K/uL Eos # (Auto) 0.29 (0.00-0.50) K/uL Baso # (Auto) 0.04 (0.00-0.20) K/uL PT (9.5-12.0) SEC INR APTT (24.5-32.8) SEC D-Dimer, Quantitative (0-400) ng/mL Sodium 137 (136-145) mmol/L Potassium 4.1 (3.5-5.1) mmol/L Chloride 100 (98-107) mmol/L Carbon Dioxide 27.7 (21.0-32.0) mmol/L BUN 19 H (7-18) mg/dL Creatinine 0.93 (0.51-1.17) mg/dL Est Cr Clr Drug Dosing 45.58 mL/min Estimated GFR (MDRD) 58 mL/min Glucose 95 (70-99) mg/dL Hemoglobin A1c (4.3-5.7) % Lactic Acid 0.6 (0.4-2.0) mmol/L Uric Acid 6.4 (2.6-7.2) mg/dL Calcium 9.4 (8.5-10.1) mg/dL Magnesium 2.0 (1.8-2.4) mg/dL Total Bilirubin 0.6 (0.2-1.0) mg/dL AST 20 (15-37) U/L ALT 28 (12-78) U/L Alkaline Phosphatase 71 (46-116) IU/L Creatine Kinase 105 (26-308) U/L Creatine Kinase Index 1.6 (0.0-2.5) % CK-MB (CK-2) 1.70 (0.00-3.60) ng/mL Troponin I 0.003 (0.000-0.056) ng/mL NT-Pro-B Natriuret Pep 818 H (0-125) pg/mL Total Protein 7.6 (6.4-8.2) g/dL Albumin 4.0 (3.4-5.0) g/dL Triglycerides (30-150) mg/dL Cholesterol (100-200) mg/dL LDL Cholesterol, Calc (0-100) mg/dL HDL Cholesterol (40-60) mg/dL TSH, Ultra Sensitive 0.668 (0.358-3.740) mIU/mL 06/18/20 06/18/20 Range/Units 07:20 07:20 WBC (4.0-10.2) K/uL RBC (3.77-5.09) M/uL Hgb (11.7-15.5) g/dL Hct (34.0-46.0) % MCV (84.0-98.0) fL MCH (28.2-33.3) pg MCHC (31.7-36.0) g/dL RDW (11.2-14.1) % Plt Count (150-350) K/uL Neut % (Auto) (45.0-80.0) % Lymph % (Auto) (10.0-50.0) % Hawkins % (Auto) (2.0-14.0) % Eos % (Auto) (0.0-5.0) % Baso % (Auto) (0.0-2.0) % Neut # (Auto) (1.40-7.00) K/uL Lymph # (Auto) (0.50-3.50) K/uL Hawkins # (Auto) (0.00-1.00) K/uL Eos # (Auto) (0.00-0.50) K/uL Baso # (Auto) (0.00-0.20) K/uL PT (9.5-12.0) SEC INR APTT (24.5-32.8) SEC D-Dimer, Quantitative (0-400) ng/mL Sodium 139 (136-145) mmol/L Potassium 3.6 (3.5-5.1) mmol/L Chloride 100 (98-107) mmol/L Carbon Dioxide 29.8 (21.0-32.0) mmol/L BUN 16 (7-18) mg/dL Creatinine 0.93 (0.51-1.17) mg/dL Est Cr Clr Drug Dosing 45.58 mL/min Estimated GFR (MDRD) 58 mL/min Glucose 92 (70-99) mg/dL Hemoglobin A1c 5.3 (4.3-5.7) % Lactic Acid (0.4-2.0) mmol/L Uric Acid (2.6-7.2) mg/dL Calcium 9.5 (8.5-10.1) mg/dL Magnesium (1.8-2.4) mg/dL Total Bilirubin 0.8 (0.2-1.0) mg/dL AST 23 (15-37) U/L ALT 33 (12-78) U/L Alkaline Phosphatase 66 (46-116) IU/L Creatine Kinase 102 (26-308) U/L Creatine Kinase Index 1.6 (0.0-2.5) % CK-MB (CK-2) 1.60 (0.00-3.60) ng/mL Troponin I 0.005 (0.000-0.056) ng/mL NT-Pro-B Natriuret Pep 873 H (0-125) pg/mL Total Protein 7.2 (6.4-8.2) g/dL Albumin 3.7 (3.4-5.0) g/dL Triglycerides 117 (30-150) mg/dL Cholesterol 208 H (100-200) mg/dL LDL Cholesterol, Calc 120 H (0-100) mg/dL HDL Cholesterol 65 H (40-60) mg/dL TSH, Ultra Sensitive (0.358-3.740) mIU/mL Result Diagrams: 06/18/20 07:20 06/18/20 07:20 Sepsis Event Note - Evaluation Sepsis Screening Result: No Definite Risk - Focused Exam Vital Signs: Vital Signs Temp Temp Pulse Pulse Resp BP BP 06/18/20 08:52 86 102/58 L 06/18/20 04:00 36.3 C 82 20 95/63 06/18/20 00:26 36.3 C 64 20 93/45 L 06/17/20 22:18 06/17/20 22:00 36.6 C 84 20 113/68 Pulse Ox 06/18/20 08:52 06/18/20 04:00 97 06/18/20 00:26 98 06/17/20 22:18 97 06/17/20 22:00 99 - Problem List & Annotations (1) Atrial fibrillation with rapid ventricular response SNOMED Code(s): 337516729016411 Code(s): I48.91 - UNSPECIFIED ATRIAL FIBRILLATION Status: Acute Priority: High Current Visit: Yes Annotation/Comment:: Improved/resolved tachycardia and PVCs with medication adjustments as below. Note previous history of recurrent atrial fibrillation with rapid ventricular response with overall good response to IV Lopressor therapy initially in the emergency room. Patient's Cardizem CD was increased to 180 mg p.o. at bedtime with her dose given early in the emergency room. Cardiology consultation, etc. depending on her clinical course. She denies any chest pain or anginal type symptoms with chest pain protocol not initiated in the emergency room. Note resolution of previous anteroinferior ischemia with no previous heart catheterization. Standard rule out [place] orders are negative to this point. Consider event monitor, etc. lauro goins on her clinical course. (2) CHF (congestive heart failure) SNOMED Code(s): 44659677 Code(s): I50.9 - HEART FAILURE, UNSPECIFIED Status: Acute Priority: High Current Visit: Yes Onset Date: 06/17/20 Qualifiers: Heart failure type: unspecified Heart failure chronicity: acute Qualified Code(s): I50.9 - Heart failure, unspecified Annotation/Comment:: Mild CHF likely secondary to her atrial fibrillation/ta chycardia as above. BNP is still elevated with IV Lasix therapy. Echocardiogram scheduled for later today. Continue IV Lasix therapy for now with spironolactone discontinued this morning secondary to some nonsymptomatic hypotension with systolic blood pressures in the 90s. (3) Osteoarthritis SNOMED Code(s): 707757162 Code(s): M19.90 - UNSPECIFIED OSTEOARTHRITIS, UNSPECIFIED SITE Status: Chronic Priority: Medium Current Visit: Yes Qualifiers: Osteoarthritis location: multiple joints Osteoarthritis type: primary Qualified Code(s): M89.49 - Other hypertrophic osteoarthropathy, multiple sites Annotation/Comment:: History of rheumatoid arthritisstable by history. Note recent left ankle fracture as per emergency room note. (4) PVCs (premature ventricular contractions) SNOMED Code(s): 71214342 Code(s): I49.3 - VENTRICULAR PREMATURE DEPOLARIZATION Status: Acute Priority: Medium Current Visit: Yes Onset Date: 06/17/20 Annotation/Com ment:: Newly diagnosed. IV Lopressor given as above with initiation of additional Toprol-XL in the a.m. on 06/18. Consider event monitor as needed as above. 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 No recent fever bronchitic type symptoms. (6) Hyperlipidemia SNOMED Code(s): 67362498 Code(s): E78.5 - HYPERLIPIDEMIA, UNSPECIFIED Status: Chronic Priority: Medium Current Visit: Yes Qualifiers: Hyperlipidemia type: mixed hyperlipidemia Qualified Code(s): E78.2 - Mixed hyperlipidemia Annotation/Comment:: Under therapy. Lipid panel was relatively normal with current medical therapy with additional normal glycosylated hemoglobin of 5.3% on 06/18/2020. (7) Hypertension SNOMED Code(s): 09292843 Code(s): I10 - ESSENTIAL (PRIMARY) HYPERTENSION Status: Chronic Priority: Medium Current Visit: Yes Qualifiers: Hypertension type: essential hypertension Qualified Code(s): I10 - Essential (primary) hypertension Annotation/Comment:: Some hypotension during early portion of hospitalization with multiple medication adjustments as above. Blood pressures were otherwise stable in the emergency room and previously by patient history. - Problem List Review Problem List Initiated/Reviewed/Updated: Yes - My Orders Last 24 Hours: My Active Orders 06/17/20 18:31 Cardiac Monitoring [RC] Q2HR EKG Documentation Completion [RC] ASDIRECTED Peripheral IV Care [RC] . DIRECTED Chest 1V Frontal [CR] Stat Sodium Chloride 0.9% [Saline Flush] 10 ml FLUSH ASDIRECTED PRN Peripheral IV Insertion Adult [OM.PC] Stat Resuscitation Status Stat 06/17/20 22:18 Communication Order [RC] PER UNIT ROUTINE Height and Weight [RC] 0600 Intake and Output Strict [RC] 06,18 Oxygen Therapy [RC] 2300 Pulse Oximetry [RC] ASDIRECTED Up With Assistance [RC] ASDIRECTED OCCULT BLOOD DIAGNOSTIC [OP] Stat Acetaminophen [TylenoL] 650 mg PO Q4H PRN Sodium Chloride 0.9% [Saline Flush] 10 ml FLUSH Q12HR PRN Temazepam [Restoril] 15 mg PO BEDTIME PRN Antiembolic Hose [OM.PC] Routine CHF Questionnaire [COMM] Routine DVT/VTE Prophylaxis Reflex [OM.PC] Routine GM Immunization Reflex [OM.PC] Click to Edit 06/17/20 22:19 Antiembolic Devices [RC] 08,20 Communication, Vaccine [RC] PER UNIT ROUTINE VTE/DVT Education [RC] PER UNIT ROUTINE Vaccines to be Administered [RC] .PRN 06/17/20 22:21 Albuterol [Proventil Neb Soln] 2.5 mg INH Q2H PRN 06/17/20 22:23 RT Aerosol Therapy [RC] ASDIRECTED RT Post Treatment Assessment [RC] Click to Edit RT Pre-Treatment Assessment [RC] Click to Edit 06/17/20 22:24 RT Post Treatment Assessment [RC] Click to Edit RT Pre-Treatment Assessment [RC] Click to Edit 06/18/20 00:00 Furosemide [Lasix] 40 mg IVPUSH Q8HR 06/18/20 05:11 EKG Documentation Completion [RC] ASDIRECTED Echo Comp wo Cont [US] Urgent 06/18/20 Breakfast Fluid Restriction [DIET] 06/18/20 08:00 Albuterol/Ipratropium [Combivent Respimat] See Dose Instructions INH QIDRT Metoprolol Succinate [Toprol XL] 25 mg PO DAILY Potassium Chloride [Klor-Con M20] 20 meq PO TID 06/18/20 09:56 Vital Signs [RC] Q6HR 06/18/20 18:00 Warfarin [Coumadin] 7.5 mg PO SUTUTHFRSA@1800 06/18/20 20:00 Diltiazem [Cardizem CD] 180 mg PO BEDTIME Ezetimibe [Zetia] 10 mg PO BEDTIME atorvaSTATin [Lipitor] 20 mg PO BEDTIME 06/19/20 05:11 BASIC METABOLIC PANEL,BMP [CHEM] Routine CBC WITH AUTO DIFF [HEME] Routine CK W CKMB [CHEM] Routine MAGNESIUM [CHEM] Routine PRO B-TYPE NATRIUR PEPT,BNPPRO [CHEM] Routine TROPONIN I [CHEM] Routine 06/19/20 08:00 Azithromycin [Zithromax] 250 mg PO MOWEFR@0800 06/19/20 18:00 Warfarin [Coumadin] 5 mg PO MOWE@1800 - Assessment Assessment:: As above - Plan Plan:: As above. Extensive precautions were given to the patient, who is in agreement with the treatment plan. The patient will require about 2-3 days of inpatient/acute care secondary to multiple health problems as above.
[2020-06-18] MEDS ORDERED: Warfarin 5 MG Tab PO SCH (18:00)
[2020-06-18] MEDS: Diltiazem 180 MG Cap.CD PO SCH (19:52)
[2020-06-18] MEDS: atorvaSTATin 10 MG Tab PO SCH (19:52)
[2020-06-18] MEDS: Ezetimibe 10 MG Tab PO SCH (19:52)
[2020-06-19] MEDS: Furosemide 40 MG/4 ML VIAL IVPUSH SCH ×3 (02:38→16:20)
[2020-06-19] MEDS: Metoprolol Succinate 25 MG Tab.ER PO SCH (07:55)
[2020-06-19] MEDS: Potassium Chloride 20 MEQ Tab.ER PO SCH ×3 (07:56→17:43)
[2020-06-19] MEDS: Albuterol/Ipratropium 4 GM Inhalation Spray INH SCH ×4 (07:56→20:07)
[2020-06-19] MEDS: Sodium Chloride 0.9% 10 ML Syringe FLUSH PRN ×2 (07:56→16:20)
[2020-06-19] MEDS ORDERED: Azithromycin 250 MG Tab PO SCH (08:00)
[2020-06-19 08:26] LABS: CHLORIDE,CL 102 mmol/L (98-107); SODIUM,NA 138 mmol/L (136-145)
--- NOTE | 2020-06-19 10:11 | PCM.PN ---
- General Info Date of Service: 06/19/20 Admission Dx/Problem (Free Text): 1. CHF 2. Atrial fibrillation with rapid ventricular response Functional Status: Reports: Pain Controlled, Tolerating Diet, Ambulating, Urinating, New Symptoms, Incentive Spirometry Pain Score: 0 - Review of Systems General: Reports: Fever. Denies: Weakness, Fatigue, Malaise, Chills, Night Sweats, Appetite HEENT: Reports: Glasses. Denies: Dysphasia, Ear Pain, Eye Pain, Headaches, Post Nasal Drip, Sinus Congestion, Sore Throat, Rhinitis, Visual Changes Pulmonary: Reports: No Symptoms. Denies: Shortness of Breath, Pleuritic Chest Pain, Cough, Sputum, Hemoptysis, Wheezing Cardiovascular: Reports: No Symptoms. Denies: Chest Pain, Palpitations, Dyspnea on Exertion, Orthopnea, PND, Edema, Lightheadedness Gastrointestinal: Reports: No Symptoms, Other (Normal bowel movement earlier today). Denies: Abdominal Pain, Constipation, Decreased Appetite, Diarrhea, Difficulty Swallowing, Flatus, Hematochezia, Melena, Nausea, Vomiting Genitourinary: Reports: No Symptoms. Denies: Dysuria, Frequency, Burning, Urgency, Incontinence, Hematuria, Retention, Flank Pain Musculoskeletal: Reports: Joint Pain (Stable postoperative left ankle pain only while weightbearing). Denies: Neck Pain, Shoulder Pain, Hand Pain, Back Pain, Leg Pain, Foot Pain, Joint Swelling Skin: Reports: No Symptoms. Denies: Diaphoresis, Bruising, Rash Neurological: Reports: No Symptoms. Denies: Confusion, Dizziness, Numbness, Paresthesia, Tingling, Weakness Psychiatric: Reports: No Symptoms. Denies: Confusion, Depression, Anxiety, Agitation, Cravings, Hallucinations - Patient Data Vitals - Most Recent: Last Vital Signs Temp 36.8 C 06/19/20 06:00 Pulse 75 06/19/20 07:55 Resp 14 06/19/20 06:00 BP 102/62 06/19/20 07:55 Pulse Ox 97 06/19/20 06:00 Vital Signs - 24 hr 06/18/20 06/18/20 06/19/20 12:00 18:00 00:00 Temperature [ 37.6 C Oral] Temperature [ 37.1 C 37.4 C Temporal] Pulse, Peripheral Pulse, 75 58 L Peripheral [ Pulse Oximetry] Respiratory 20 20 12 Rate Blood Pressure Blood Pressure 107/55 L 104/64 101/54 L [Right Upper Arm] O2 Sat by Pulse 97 94 L 99 Oximetry 06/19/20 06/19/20 06:00 07:55 Temperature [ Oral] Temperature [ 36.8 C Temporal] Pulse, 75 Peripheral Pulse, 69 Peripheral [ Pulse Oximetry] Respiratory 14 Rate Blood Pressure 102/62 Blood Pressure 105/56 L [Right Upper Arm] O2 Sat by Pulse 97 Oximetry Weight - Most Recent: 73.346 kg I&O - Last 24 Hours: Intake & Output 06/18/20 06/19/20 06/19/20 22:59 06:59 14:59 Intake Total 300 420 Output Total 400 700 Balance -400 -400 420 Imaging Impressions - Last 24 Hours: well puller shows persistent atrial flutter and fibrillation with heart rate in the 70s with no other ectopy or arrhythmia Preliminary verbal report of echocardiogram on 06/18/2020 does indicate a decreased ejection fraction of 35-40 % with moderate tricuspid and aortic valve insufficiency. Lab Results Last 24 Hours: Laboratory Results - last 24 hr 06/19/20 06/19/20 06/19/20 Range/Units 07:27 07:27 09:38 WBC 6.3 (4.0-10.2) K/uL RBC 4.45 (3.77-5.09) M/uL Hgb 12.9 (11.7-15.5) g/dL Hct 39.6 (34.0-46.0) % MCV 89.0 (84.0-98.0) fL MCH 29.0 (28.2-33.3) pg MCHC 32.6 (31.7-36.0) g/dL RDW 14.4 H (11.2-14.1) % Plt Count 209 (150-350) K/uL Neut % (Auto) 55.0 (45.0-80.0) % Lymph % (Auto) 25.3 (10.0-50.0) % [place] % (Auto) 12.9 (2.0-14.0) % Eos % (Auto) 6.2 H (0.0-5.0) % Baso % (Auto) 0.6 (0.0-2.0) % Neut # (Auto) 3.46 (1.40-7.00) K/uL Lymph # (Auto) 1.59 (0.50-3.50) K/uL [place] # (Auto) 0.81 (0.00-1.00) K/uL Eos # (Auto) 0.39 (0.00-0.50) K/uL Baso # (Auto) 0.04 (0.00-0.20) K/uL Sodium 138 (136-145) mmol/L Potassium 4.2 (3.5-5.1) mmol/L Chloride 102 (98-107) mmol/L Carbon Dioxide 29.5 (21.0-32.0) mmol/L BUN 22 H (7-18) mg/dL Creatinine 0.89 (0.51-1.17) mg/dL Est Cr Clr Drug Dosing 47.63 mL/min Estimated GFR (MDRD) > 60 mL/min Glucose 101 H (70-99) mg/dL Calcium 9.1 (8.5-10.1) mg/dL Magnesium 2.1 (1.8-2.4) mg/dL Creatine Kinase 103 (26-308) U/L Creatine Kinase Index 1.7 (0.0-2.5) % CK-MB (CK-2) 1.80 (0.00-3.60) ng/mL Troponin I 0.000 (0.000-0.056) ng/mL NT-Pro-B Natriuret Pep 620 H (0-125) pg/mL Specimen Type Urincc Urine Color Yellow Urine Appearance Clear Urine pH 5.5 (5.0-9.0) Ur Specific [place] 1.015 (1.005-1.030) Urine Protein Negative (NEGATIVE) mg/dL Urine Glucose (UA) Negative (NEGATIVE) mg/dL Urine Ketones Negative (NEGATIVE) mg/dL Urine Occult Blood Trace-lysed H (NEGATIVE) Urine Nitrite Negative (NEGATIVE) Urine Bilirubin Negative (NEGATIVE) Urine Urobilinogen 0.2 (0.2-1.0) E.U./dL Ur Leukocyte Esterase Negative (NEGATIVE) Urine RBC 0-5 /HPF Urine WBC Not seen /HPF Ur Epithelial Cells Rare /LPF Urine Bacteria Not seen (NONE TO FEW) /HPF Maksim Results Last 24 Hours: None Med Orders - Current: Current Medications Acetaminophen (Tylenol) 650 mg PO Q4H PRN PRN Reason: Pain Albuterol (Proventil Neb Soln) 2.5 mg INH Q2H PRN PRN Reason: SHORTNESS OF BREATH Albuterol/Ipratropium (Combivent Respimat) 0 gm INH QIDRT [facility] Last Admin: 06/19/20 07:56 Dose: 2 puff Documented by: Atorvastatin Calcium (Lipitor) 20 mg PO BEDTIME [facility] Last Admin: 06/18/20 19:52 Dose: 20 mg Documented by: Azithromycin (Zithromax) 250 mg PO MOWEFR@0800 [facility] Last Admin: 06/19/20 07:55 Dose: 250 mg Documented by: Diltiazem HCl (Cardizem Cd) 180 mg PO BEDTIME [facility] Last Admin: 06/18/20 19:52 Dose: 180 mg Documented by: Ezetimibe (Zetia) 10 mg PO BEDTIME [facility] Last Admin: 06/18/20 19:52 Dose: 10 mg Documented by: Furosemide (Lasix) 40 mg IVPUSH Q8HR [facility] Last Admin: 06/19/20 07:56 Dose: 40 mg Documented by: Metoprolol Succinate (Toprol Xl) 25 mg PO DAILY [facility] Last Admin: 06/19/20 07:55 Dose: 25 mg Documented by: Potassium Chloride (Klor-Con M20) 20 meq PO TID [facility] Last Admin: 06/19/20 07:56 Dose: 20 meq Documented by: Sodium Chloride (Saline Flush) 10 ml FLUSH ASDIRECTED PRN PRN Reason: Keep Vein Open Last Admin: 06/19/20 07:56 Dose: 10 ml Documented by: Sodium Chloride (Saline Flush) 10 ml FLUSH Q12HR PRN PRN Reason: Keep Vein Open Temazepam (Restoril) 15 mg PO BEDTIME PRN PRN Reason: Insomnia Warfarin Sodium (Coumadin) 5 mg PO MOWE@1800 [facility] Warfarin Sodium (Coumadin) 7.5 mg PO SUTUTHFRSA@1800 [facility] Last Admin: 06/18/20 17:30 Dose: 7.5 mg Documented by: Discontinued Medications Albuterol/Ipratropium (Combivent Respimat) 0 gm INH QID [facility] Diltiazem HCl (Cardizem Cd) 180 mg PO ONETIME ONE Stop: 06/17/20 19:38 Last Admin: 06/17/20 20:09 Dose: 180 mg Documented by: Famotidine (Pepcid) 40 mg IVPUSH ONETIME ONE Stop: 06/17/20 18:32 Last Admin: 06/17/20 18:46 Dose: 40 mg Documented by: Metoprolol Tartrate (Lopressor) 2.5 mg IVPUSH ONETIME ONE Stop: 06/17/20 18:32 Last Admin: 06/17/20 18:45 Dose: 2.5 mg Documented by: Spironolactone (Aldactone) 25 mg PO DAILY [facility] Last Admin: 06/18/20 08:52 Dose: Not Given Documented by: - Exam Quality Assessment: Supplemental Oxygen, DVT Prophylaxis. No: Central Line/PICC, Urine Catheter, Skin Breakdown, Restraints General: Alert, Oriented, Cooperative, No Acute Distress HEENT: Pupils Equal, Pupils Reactive, EOMI, Mucous Membr. Moist/[place]. No: Scleral Icterus Neck: Supple, Trachea Midline, No JVD, No Thyromegaly. No: Lymphadenopathy Lungs: Normal Respiratory Effort, Rales (Mild bilateral basilar). No: Rhonchi, Rub, Wheezing Cardiovascular: Regular Rate, No Murmurs, Irregular Rhythm. No: Gallops, Rubs GI/Abdominal Exam: Normal Bowel Sounds, Soft, Non-Tender, No Organomegaly, No Distention, No Abnormal Bruit, No Mass. No: Guarding (Female) Exam: Deferred Back Exam: Normal Inspection. No: CVA Tenderness (L), CVA Tenderness (R), Mus yury Spasm Extremities: Leg Pain (Normal postoperative left ankle pain), Limited Range of Motion (Mild left ankle secondary to recent fracture with patient not wearing her ankle/foot boot while in bed). No: Joint Swelling, Denia's Sign Peripheral Pulses: 2+: Brachial (L), Brachial (R), Dorsalis Pedis (L), Dorsalis Pedis (R) Skin: Warm, Dry, Intact. No: Ecchymosis Neurological: No New Focal Deficit Psy/Mental Status: Alert, Normal Affect, Normal Mood. No: Agitated, Mcleod ucinations, Withdrawal Symptoms #1 Interpretation EKG Date: 06/19/20 Time: 07:13 Rhythm: A-Flutter Rate (Beats/Min): 68 [place]: RAD-Right [place] Deviation P-Wave: Variable QRS: Normal ST-T: Normal QT: Normal IL/PQ Interval: Not applicable. Stable pulmonary hypertension by EKG. Comparison: No Change (Since 06/18/2019) EKG Interpretation Comments: 1. Atrial fibrillation/flutter 2. Pulmonary hypertension by EKG - Patient Data Lab Results Last 24 hrs: Laboratory Results - last 24 hr 06/19/20 06/19/20 06/19/20 Range/Units 07:27 07:27 09:38 WBC 6.3 (4.0-10.2) K/uL RBC 4.45 (3.77-5.09) M/uL Hgb 12.9 (11.7-15.5) g/dL Hct 39.6 (34.0-46.0) % MCV 89.0 (84.0-98.0) fL MCH 29.0 (28.2-33.3) pg MCHC 32.6 (31.7-36.0) g/dL RDW 14.4 H (11.2-14.1) % Plt Count 209 (150-350) K/uL Neut % (Auto) 55.0 (45.0-80.0) % Lymph % (Auto) 25.3 (10.0-50.0) % [place] % (Auto) 12.9 (2.0-14.0) % Eos % (Auto) 6.2 H (0.0-5.0) % Baso % (Auto) 0.6 (0.0-2.0) % Neut # (Auto) 3.46 (1.40-7.00) K/uL Lymph # (Auto) 1.59 (0.50-3.50) K/uL [place] # (Auto) 0.81 (0.00-1.00) K/uL Eos # (Auto) 0.39 (0.00-0.50) K/uL Baso # (Auto) 0.04 (0.00-0.20) K/uL Sodium 138 (136-145) mmol/L Potassium 4.2 (3.5-5.1) mmol/L Chloride 102 (98-107) mmol/L Carbon Dioxide 29.5 (21.0-32.0) mmol/L BUN 22 H (7-18) mg/dL Creatinine 0.89 (0.51-1.17) mg/dL Est Cr Clr Drug Dosing 47.63 mL/min Estimated GFR (MDRD) > 60 mL/min Glucose 101 H (70-99) mg/dL Calcium 9.1 (8.5-10.1) mg/dL Magnesium 2.1 (1.8-2.4) mg/dL Creatine Kinase 103 (26-308) U/L Creatine Kinase Index 1.7 (0.0-2.5) % CK-MB (CK-2) 1.80 (0.00-3.60) ng/mL Troponin I 0.000 (0.000-0.056) ng/mL NT-Pro-B Natriuret Pep 620 H (0-125) pg/mL Specimen Type Urincc Urine Color Yellow Urine Appearance Clear Urine pH 5.5 (5.0-9.0) Ur Specific [place] 1.015 (1.005-1.030) Urine Protein Negative (NEGATIVE) mg/dL Urine Glucose (UA) Negative (NEGATIVE) mg/dL Urine Ketones Negative (NEGATIVE) mg/dL Urine Occult Blood Trace-lysed H (NEGATIVE) Urine Nitrite Negative (NEGATIVE) Urine Bilirubin Negative (NEGATIVE) Urine Urobilinogen 0.2 (0.2-1.0) E.U./dL Ur Leukocyte Esterase Negative (NEGATIVE) Urine RBC 0-5 /HPF Urine WBC Not seen /HPF Ur Epithelial Cells Rare /LPF Urine Bacteria Not seen (NONE TO FEW) /HPF Result Diagrams: 06/19/20 07:27 06/19/20 07:27 Sepsis Event Note - Evaluation Sepsis Screening Result: No Definite Risk - Focused Exam Vital Signs: Vital Signs Temp Pulse Pulse Resp BP BP Pulse Ox 06/19/20 07:55 75 102/62 06/19/20 06:00 36.8 C 69 14 105/56 L 97 06/19/20 00:00 37.4 C 58 L 12 101/54 L 99 - Problem List & Annotations (1) Atrial fibrillation with rapid ventricular response SNOMED Code(s): 080121218769984 Code(s): I48.91 - UNSPECIFIED ATRIAL FIBRILLATION Status: Acute Priority: High Current Visit: Yes Annotation/Comment:: Improved/resolved tachycardia and PVCs with medication adjustments as below. Note previous history of recurrent atrial fibrillation with rapid ventricular response with overall good response to IV Lopressor therapy initially in the emergency room. Patient's Car dizem CD was increased to 180 mg p.o. at bedtime with her dose given early in the emergency room. The patient did have a cardiology appointment scheduled in August, however secondary to her recent decreased cardiac function, aggravation of her chronic atrial fibrillation/flutter, and this hospitalization this appointment was moved up to 8:30 AM on 06/21/2020 with Caitlin Goddard NP, at [facility] in [place]. Further cardiology consultation, etc. depending on her clinical course. She denied any chest pain or anginal type symptoms with chest pain protocol not initiated in the emergency room. Note resolution of previous anteroinferior ischemia with no previous heart catheterization. Sta ndard rule out AL orders are negative to this point. Consider event monitor, etc. depending on her clinical course. Patient should also have follow-up blood work and evaluation with her regular provider in about 10-14 days after discharge from this facility with planned discharge tomorrow. (2) CHF (congestive heart failure) SNOMED Code(s): 48522092 Code(s): I50.9 - HEART FAILURE, UNSPECIFIED Status: Acute Priority: High Current Visit: Yes Onset Date: 06/17/20 Qualifiers: Heart failure type: unspecified Heart failure chronicity: acute Qualified Code(s): I50.9 - Heart failure, unspecified Annotation/Comment:: Mild CHF likely secondary to her atrial fibrillation/tachycardia as above. BNP is still elevated with IV Lasix therapy, although improved during this hospitalization. Preliminary report of echocardiogram in this facility on 06/18/2020 did show a decreased ejection fraction of 30-45% with moderate valvular disease as above. Patient may be a candidate for pacemaker placement as cardiac augmentation for her CHF. Note rescheduled cardiology consultation as above with possible further medication adjustments through that provider. Continue IV Lasix therapy for now with spironolactone discontinued on 06/18 secondary to some nonsymptomatic hypotension with systolic blood pressures in the 90s on that day. (3) Osteoarthritis SNOMED Code(s): 447828892 Code(s): M19.90 - UNSPECIFIED OSTEOARTHRITIS, UNSPECIFIED SITE Status: Chronic Priority: Medium Current Visit: Yes Qualifiers: Osteoarthritis location: multiple joints Osteoarthritis type: primary Qualified Code(s): M89.49 - Other hypertrophic osteoarthropathy, multiple sites Annotation/Comment:: History of rheumatoid arthritisstable by history. Note recent left ankle fracture as per emergency room note. (4) PVCs (premature ventricular contractions) SNOMED Code(s): 65236550 Code(s): I49.3 - VENTRICULAR PREMATURE DEPOLARIZATION Status: Acute Priority: Medium Current Visit: Yes Onset Date: 06/17/20 Annotation/Comment:: Newly diagnosed. IV Lopressor given as above with initiation of additional Toprol-XL in the a.m. on 06/18. Consider event monitor as needed as above. 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 No recent fever bronchitic type symptoms. No developing fever on 06/19/2020 with urine specimen collected for UA and culture and sensitivity. Chest x-ray will be repeated in the a.m. (6) Hyperlipidemia SNOMED Code(s): 35302062 Code(s): E78.5 - HYPERLIPIDEMIA, UNSPECIFIED Status: Chronic Priority: Medium Current Visit: Yes Qualifiers: Hyperlipidemia type: mixed hyperlipidemia Qualified Code(s): E78.2 - Mixed hyperlipidemia Annotation/Comment:: Under therapy. Lipid panel was relatively normal with current medical therapy with additional normal glycosylated hemoglobin of 5.3% on 06/18/2020. (7) Hypertension SNOMED Code(s): 45620376 Code(s): I10 - ESSENTIAL (PRIMARY) HYPERTENSION Status: Chronic Priority: Medium Current Visit: Yes Qualifiers: Hypertension type: essential hypertension Qualified Code(s): I10 - Essential (primary) hypertension Annotation/Comment:: Some hypotension during early portion of hospitalization with multiple medication adjustments as above. Blood pressures were otherwise improved after discontinuation of spironolactone as above. Continue to observe closely by her regular providers. - Problem List Review Problem List Initiated/Reviewed/Updated: Yes - My Orders Last 24 Hours: My Active Orders 06/18/20 09:56 Vital Signs [RC] Q6HR 06/18/20 10:14 EKG Documentation Completion [RC] ASDIRECTED 06/18/20 18:00 Warfarin [Coumadin] 7.5 mg PO SUTUTHFRSA@1800 06/18/20 20:00 Diltiazem [Cardizem CD] 180 mg PO BEDTIME Ezetimibe [Zetia] 10 mg PO BEDTIME atorvaSTATin [Lipitor] 20 mg PO BEDTIME 06/19/20 05:11 EKG 12 Lead [EK] Routine 06/19/20 08:00 Azithromycin [Zithromax] 250 mg PO MOWEFR@0800 06/19/20 09:38 CULTURE URINE [RM] Routine 06/19/20 18:00 Warfarin [Coumadin] 5 mg PO MOWE@1800 - Assessment Assessment:: As above - Plan Plan:: As above. Extensive precautions were given to the patient, who is in agreement with the treatment plan. The patient will require about 1-2 days of inpatient/acute care secondary to multiple health problems as above. Ricardo mueller physician assumes care in the a.m.
[2020-06-19] MEDS ORDERED: Warfarin 5 MG Tab PO SCH (18:00)
[2020-06-19] MEDS: atorvaSTATin 10 MG Tab PO SCH (20:06)
[2020-06-19] MEDS: Diltiazem 180 MG Cap.CD PO SCH (20:07)
[2020-06-19] MEDS: Ezetimibe 10 MG Tab PO SCH (20:07)
[2020-06-20] MEDS: Furosemide 40 MG/4 ML VIAL IVPUSH SCH ×2 (01:15→07:24)
[2020-06-20] MEDS: Albuterol/Ipratropium 4 GM Inhalation Spray INH SCH ×2 (07:23→11:33)
[2020-06-20] MEDS: Metoprolol Succinate 25 MG Tab.ER PO SCH ×2 (07:24→14:38)
[2020-06-20] MEDS: Potassium Chloride 20 MEQ Tab.ER PO SCH ×2 (07:24→11:33)
[2020-06-20 07:53] LABS: CHLORIDE,CL 100 mmol/L (98-107); SODIUM,NA 138 mmol/L (136-145)
[2020-06-20 12:26] VITALS: BP 126/64; PULSE 118
--- NOTE | 2020-06-20 13:57 | PCM.DCSUM1 ---
Discharge Summary - Hospital Course Brief History: Patient admitted for further evaluation and treatment of Afib with RVR Diagnosis: Stroke: No - Discharge Data Discharge Date: 06/20/20 Discharge Disposition: Home, Self-Care 01 Condition: Good - Referral to Home Health Primary Care Physician: EULOGIO Du - Discharge Diagnosis/Problem(s) (1) Atrial fibrillation with rapid ventricular response SNOMED Code(s): 785341143634118 ICD Code: I48.91 - UNSPECIFIED ATRIAL FIBRILLATION Status: Acute Priority: High Current Visit: Yes Problem Details: Improved/resolved tachycardia and PVCs with medication adjustments as below. Note previous history of recurrent atrial fibrillation with rapid ventricular response with overall good response to IV Lopressor therapy initially in the emergency room. Patient's Cardizem CD was increased to 180 mg p.o. at bedtime with her dose given early in the emergency room. Toprol XL added. She denied any chest pain or anginal type symptoms with chest pain protocol not initiated in the emergency room. Standard rule out [place] orders negative. Will continue patient on both Toprol XL and Cardizem, however patient cautioned to be on lookout for hypotension and subsequent need for further dose adjustements. Patient should also have follow- up blood work and evaluation with her regular provider in about 10-14 days after discharge from this facility with planned discharge tomorrow. (2) CHF (congestive heart failure) SNOMED Code(s): 59459198 ICD Code: I50.9 - HEART FAILURE, UNSPECIFIED Status: Acute Priority: High Current Visit: Yes Onset Date: 06/17/20 Problem Details: Mild CHF/proBNP elevation. Lasix held today due to hypotension. No increase in diuretic at discharge. Preliminary report of echocardiogram in this facility on 06/18/2020 did show a decreased ejection fraction of 30-45% with moderate valvular disease as above. Patient may be a candidate for pacemaker placement as cardiac augmentation for her CHF. Patient has follow up Cardiology appointment in several weeks Qualifiers: Heart failure type: unspecified Heart failure chronicity: acute Qualified Code(s): I50.9 - Heart failure, unspecified (3) PVCs (premature ventricular contractions) SNOMED Code(s): 58483375 ICD Code: I49.3 - VENTRICULAR PREMATURE DEPOLARIZATION Status: Acute Priority: Medium Current Visit: Yes Onset Date: 06/17/20 Problem Details: Newly diagnosed. IV Lopressor given as above with initiation of additional Toprol-XL in the a.m. on 06/18. Consider event monitor as needed as above. 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 No recent fever bronchitic type symptoms. Qualifiers: COPD type: emphysema Emphysema type: panlobular Qualified Code(s): J43.1 - Panlobular emphysema (5) Hyperlipidemia SNOMED Code(s): 52868248 ICD Code: E78.5 - HYPERLIPIDEMIA, UNSPECIFIED Status: Chronic Priority: Medium Current Visit: Yes Problem Details: Under therapy. Lipid panel was relatively normal with current medical therapy with additional normal glycosylated hemoglobin of 5.3% on 06/18/2020. Qualifiers: Hyperlipidemia type: mixed hyperlipidemia Qualified Code(s): E78.2 - Mixed hyperlipidemia (6) Hypertension SNOMED Code(s): 17615831 ICD Code: I10 - ESSENTIAL (PRIMARY) HYPERTENSION Status: Chronic Prior ity: Medium Current Visit: Yes Problem Details: Some hypotension during early portion of hospitalization with multiple medication adjustments as above. Continue to observe closely by her regular providers. Qualifiers: Hypertension type: essential hypertension Qualified Code(s): I10 - Essential (primary) hypertension (7) Osteoarthritis SNOMED Code(s): 584551855 ICD Code: M19.90 - UNSPECIFIED OSTEOARTHRITIS, UNSPECIFIED SITE Status: Chronic Priority: Medium Current Visit: Yes Problem Details: History of rheumatoid arthritisstable by history. Note recent left ankle fracture as per emergency room note. Qualifiers: Osteoarthritis location: multiple joints Osteoarthritis type: primary Qualified Code(s): M89.49 - Other hypertrophic osteoarthropathy, multiple sites - Patient Summary/Data Hospital Course: Patient placed on telemetry. Underwent medication adjustment for improved rate control. Cardizem dose increased from previous dose. Toprol XL added. P atient's rate improved and overall she felt better. Noted to develop hypotension which was likely a combination of the effect of Lasix diuresis in addition to the Cardizem and Toprol XL. Lasix and morning antihypertensive meds held today. She is feeling well today and rate has improved. OK for discharge. Precautions reviewed and she is to return to ER if symptoms escalate again. Has Cardiology appointment July 04. - Patient Instructions Diet: Heart Healthy Diet Activity: As Tolerated Driving: Do Not Drive Showering/Bathing: May Shower Other/Special Instructions: Follow up as scheduled with Cardiology. Follow up with your own local provider next week for recheck. Watch your blood pressures and pulse closely. No diuretics today/tomorrow as discussed. You may resume them on Wednesday. Take the Cardizem 180mg tonight. If you are feeling ok in the morning take the Toprol XL 25mg tablet. If you notice low blood pressures/feel light headed then medications will need adjusting. Go back to the Cardizem 120mg dose and see if that works better with the Toprol XL. Diuretics may need to be adjusted too. Call if you have questions. Return to ER if you have worsening problems develop again. - Discharge Plan *PRESCRIPTION DRUG MONITORING PROGRAM REVIEWED*: Not Applicable *COPY OF PRESCRIPTION DRUG MONITORING REPORT IN PATIENT ADDY: Not Applicable Prescriptions/Med Rec: dilTIAZem HCL [Diltiazem 24Hr Cd] 180 mg PO DAILY #30 cap.er.24h Metoprolol Succinate [Toprol XL] 25 mg PO DAILY #30 tab.er Home Medications: Home Meds Multivitamin [Multi-Vitamin Daily] 1 tab PO DAILY 12/27/15 [History] Furosemide [Lasix] 20 mg PO DAILY #30 tablet 12/31/15 [Rx] Spironolactone [Aldactone] 25 mg PO DAILY #30 tablet 12/31/15 [Rx] Warfarin [Coumadin] 5 mg PO MOWE@1800 06/30/17 [History] Warfarin [Coumadin] 7.5 mg PO SUTUTHFRSA@1800 06/30/17 [History] Albuterol/Ipratropium [DuoNeb 3.0-0.5 MG/3 ML] 3 ml INH Q6HR PRN 06/17/20 [History] Azithromycin 250 mg PO MOWEFR@0800 06/17/20 [History] Budesonide [Pulmicort] 0.25 mg IH Q12HR 06/17/20 [History] Cholecalciferol (Vitamin D3) [Vitamin D] 5,000 unit PO DAILY 06/17/20 [History] Ezetimibe [Zetia] 10 mg PO BEDTIME 06/17/20 [History] Lutein 6 mg PO DAILY 06/17/20 [History] atorvaSTATin Calcium [Lipitor] 20 mg PO BEDTIME 06/17/20 [History] Metoprolol Succinate [Toprol XL] 25 mg PO DAILY #30 tab.er 06/20/20 [Rx] dilTIAZem HCL [Diltiazem 24Hr Cd] 180 mg PO DAILY #30 cap.er.24h 06/20/20 [Rx] Oxygen Therapy Mode: Nasal Cannula Forms: ED Department Discharge Referrals: Yesica Torres PA [Primary Care Provider] - - Discharge Summary/Plan Comment DC Time >30 min.: No - General Info Date of Service: 06/20/20 Admission Dx/Problem (Free Text: Afib with RVR Subjective Update: Feels overall well today. No acute complaints. Functional Status: Reports: Pain Controlled, Tolerating Diet. Denies: New Symptoms - Review of Systems General: Denies: Fever, Weakness, Fatigue, Malaise, Chills, Night Sweats, Appetite HEENT: Reports: Glasses Pulmonary: Reports: No Symptoms Cardiovascular: Denies: Chest Pain, Dyspnea on Exertion, Orthopnea, Edema, Lightheadedness Gastrointestinal: Reports: No Symptoms Genitourinary: Reports: No Symptoms Musculoskeletal: Reports: Other (healing ankle injury/no acute changes from baseline otherwise) Skin: Reports: No Symptoms Neurological: Reports: No Symptoms Psychiatric: Reports: No Symptoms - Patient Data Vitals - Most Recent: Last Vital Signs Temp 37.2 C 06/20/20 12:00 Pulse 118 H 06/20/20 12:00 Resp 16 06/20/20 12:00 BP 126/64 06/20/20 12:00 Pulse Ox 97 06/20/20 12:00 Weight - Most Recent: 73.709 kg I&O - Last 24 hours: Intake & Output 06/19/20 06/20/20 06/20/20 22:59 06:59 14:59 Intake Total 360 900 Output Total 841 460 7230 Balance -340 -300 -100 Lab Results - Last 24 hrs: Laboratory Results - last 24 hr 06/20/20 06/20/20 06/20/20 Range/Units 07:10 07:10 07:10 WBC 6.5 (4.0-10.2) K/uL RBC 4.34 (3.77-5.09) M/uL Hgb 12.6 (11.7-15.5) g/dL Hct 38.5 (34.0-46.0) % MCV 88.7 (84.0-98.0) fL MCH 29.0 (28.2-33.3) pg MCHC 32.7 (31.7-36.0) g/dL RDW 14.3 H (11.2-14.1) % Plt Count 215 (150-350) K/uL Neut % (Auto) 52.9 (45.0-80.0) % Lymph % (Auto) 26.4 (10.0-50.0) % [place] % (Auto) 15.0 H (2.0-14.0) % Eos % (Auto) 5.2 H (0.0-5.0) % Baso % (Auto) 0.5 (0.0-2.0) % Neut # (Auto) 3.45 (1.40-7.00) K/uL Lymph # (Auto) 1.72 (0.50-3.50) K/uL [place] # (Auto) 0.98 (0.00-1.00) K/uL Eos # (Auto) 0.34 (0.00-0.50) K/uL Baso # (Auto) 0.03 (0.00-0.20) K/uL PT 21.0 H (9.5-12.0) SEC INR 2.1 Sodium 138 (136-145) mmol/L Potassium 3.9 (3.5-5.1) mmol/L Chloride 100 (98-107) mmol/L Carbon Dioxide 29.2 (21.0-32.0) mmol/L BUN 24 H (7-18) mg/dL Creatinine 0.79 (0.51-1.17) mg/dL Est Cr Clr Drug Dosing 53.66 mL/min Estimated GFR (MDRD) > 60 mL/min Glucose 97 (70-99) mg/dL Calcium 8.9 (8.5-10.1) mg/dL Magnesium 2.0 (1.8-2.4) mg/dL Total Bilirubin 0.6 (0.2-1.0) mg/dL AST 24 (15-37) U/L ALT 27 (12-78) U/L Alkaline Phosphatase 62 (46-116) IU/L Troponin I 0.004 (0.000-0.056) ng/mL NT-Pro-B Natriuret Pep 647 H (0-125) pg/mL Total Protein 6.9 (6.4-8.2) g/dL Albumin 3.4 (3.4-5.0) g/dL PRASANTH Results - Last 24 hrs: Microbiology 06/19/20 09:38 Urine Culture - Final Urine, Clean Catch MIXED POSITIVE ORLY DAY 1 06/19/20 20:46 Stool Occult Blood (PRASANTH) - Final Stool / Feces NEGATIVE OCCULT BLOOD REFERENCE RANGE: NEGATIVE Med Orders - Current: Current Medications Acetaminophen (Tylenol) 650 mg PO Q4H PRN PRN Reason: Pain Albuterol (Proventil Neb Soln) 2.5 mg INH Q2H PRN PRN Reason: SHORTNESS OF BREATH Albuterol/Ipratropium (Combivent Respimat) 0 gm INH QIDRT [facility] Last Admin: 06/20/20 11:33 Dose: 2 puff Documented by: Atorvastatin Calcium (Lipitor) 20 mg PO BEDTIME [facility] Last Admin: 06/19/20 20:06 Dose: 20 mg Documented by: Azithromycin (Zithromax) 250 mg PO MOWEFR@0800 [facility] Last Admin: 06/19/20 07:55 Dose: 250 mg Documented by: Diltiazem HCl (Cardizem Cd) 180 mg PO BEDTIME [facility] Last Admin: 06/19/20 20:07 Dose: 180 mg Documented by: Ezetimibe (Zetia) 10 mg PO BEDTIME [facility] Last Admin: 06/19/20 20:07 Dose: 10 mg Documented by: Furosemide (Lasix) 40 mg IVPUSH Q8HR [facility] Last Admin: 06/20/20 07:24 Dose: Not Given Documented by: Metoprolol Succinate (Toprol Xl) 25 mg PO DAILY [facility] Last Admin: 06/20/20 07:24 Dose: Not Given Documented by: Potassium Chloride (Klor-Con M20) 20 meq PO TID [facility] Last Admin: 06/20/20 11:33 Dose: Not Given Documented by: Sodium Chloride (Saline Flush) 10 ml FLUSH ASDIRECTED PRN PRN Reason: Keep Vein Open Last Admin: 06/19/20 16:20 Dose: 10 ml Documented by: Sodium Chloride (Saline Flush) 10 ml FLUSH Q12HR PRN PRN Reason: Keep Vein Open Temazepam (Restoril) 15 mg PO BEDTIME PRN PRN Reason: Insomnia Warfarin Sodium (Coumadin) 5 mg PO MOWE@1800 [facility] Last Admin: 06/19/20 17:43 Dose: 5 mg Documented by: Warfarin Sodium (Coumadin) 7.5 mg PO SUTUTHFRSA@1800 [facility] Last Admin: 06/18/20 17:30 Dose: 7.5 mg Documented by: Discontinued Medications Albuterol/Ipratropium (Combivent Respimat) 0 gm INH QID [facility] Diltiazem HCl (Cardizem Cd) 180 mg PO ONETIME ONE Stop: 06/17/20 19:38 Last Admin: 06/17/20 20:09 Dose: 180 mg Documented by: Famotidine (Pepcid) 40 mg IVPUSH ONETIME ONE Stop: 06/17/20 18:32 Last Admin: 06/17/20 18:46 Dose: 40 mg Documented by: Metoprolol Tartrate (Lopressor) 2.5 mg IVPUSH ONETIME ONE Stop: 06/17/20 18:32 Last Admin: 06/17/20 18:45 Dose: 2.5 mg Documented by: Spironolactone (Aldactone) 25 mg PO DAILY [facility] Last Admin: 06/18/20 08:52 Dose: Not Given Documented by: - Exam Quality Assessment: Reports: Supplemental Oxygen, DVT Prophylaxis General: Reports: Alert, Oriented, Cooperative, No Acute Distress HEENT: Reports: Pupils Equal, Pupils Reactive, EOMI, Mucous Membr. Moist/[place]ck: Reports: Supple Lungs: Reports: Clear to Auscultation, Normal Respiratory Effort Cardiovascular: Reports: No Murmurs, Irregular Rhythm GI/Abdominal Exam: Normal Bowel Sounds, Soft, Non-Tender Back Exam: Denies: CVA Tenderness (L), CVA Tenderness (R), Muscle Spasm Extremities: Non-Tender, No Pedal Edema, Normal Capillary Refill Skin: Reports: Warm, Dry Neurological: Reports: No New Focal Deficit Psy/Mental Status: Reports: Alert, Normal Affect, Normal Mood
== END 2020-06-20 16:00 | disposition home or self-care (01) | DRG 291 ==
LOC: LL.ED 18:15 → LL.MS 20:57
PROVIDERS: ADMIT Family Medicine; ATTEND Family Medicine
DX: I13.0 Hypertensive heart and chronic kidney disease with heart failure and stage 1 through stage 4 chronic kidney disease, or unspecified chronic kidney disease (principal); I50.21 Acute systolic (congestive) heart failure; I48.91 Unspecified atrial fibrillation; H54.7 Unspecified visual loss; I50.9 Heart failure, unspecified; M19.90 Unspecified osteoarthritis, unspecified site; E78.00 Pure hypercholesterolemia, unspecified; M81.0 Age-related osteoporosis without current pathological fracture; M06.9 Rheumatoid arthritis, unspecified; F41.9 Anxiety disorder, unspecified; F32.9 Major depressive disorder, single episode, unspecified; D64.9 Anemia, unspecified; N18.9 Chronic kidney disease, unspecified; M85.80 Other specified disorders of bone density and structure, unspecified site; J43.1 Panlobular emphysema; E78.5 Hyperlipidemia, unspecified; E78.2 Mixed hyperlipidemia; M89.49 Other hypertrophic osteoarthropathy, multiple sites; I49.3 Ventricular premature depolarization; Z79.01 Long term (current) use of anticoagulants; Z79.899 Other long term (current) drug therapy; Z88.8 Allergy status to other drugs, medicaments and biological substances; Z98.49 Cataract extraction status, unspecified eye; Z86.718 Personal history of other venous thrombosis and embolism; Z87.01 Personal history of pneumonia (recurrent); Z85.118 Personal history of other malignant neoplasm of bronchus and lung; Z99.81 Dependence on supplemental oxygen; Z87.891 Personal history of nicotine dependence
CPT/HCPCS: 36415; 71045; 71046; 80048; 80053; 80061; 81001; 82272; 82550; 82553; 83036; 83605; 83735; 83880; 84443; 84484; 84550; 85025; 85379; 85610; 85730; 87086; 93005; 93010; 93306; 94640; 96374; 96375; 99223; 99232; 99238; 99285-25; A9270-GY; J1940; J3490

== ENCOUNTER 2020-08-10 11:19 | Observation (INO) | payer MEDICARE, OTHER ==
[2020-08-10] MEDS ORDERED: Diltiazem 25 MG/5 ML SDV IVPUSH ONE (12:10)
[2020-08-10] MEDS ORDERED: GI Cocktail Oral Solution 30 ML PO ONE (12:15)
[2020-08-10] MEDS: Sodium Chloride 0.9% 10 ML Syringe FLUSH PRN ×2 (12:22→17:20)
[2020-08-10 12:27] LABS: CHLORIDE,CL 101 mmol/L (98-107); SODIUM,NA 139 mmol/L (136-145)
[2020-08-10] MEDS ORDERED: Diltiazem IR 60 MG Tab PO ONE (13:50)
--- NOTE | 2020-08-10 15:06 | EDM.PDOC ---
ED HPI GENERAL MEDICAL PROBLEM - General Chief Complaint: Chest Pain Stated Complaint: chest burning, dizziness, palpatations Time Seen by Provider: 08/10/20 11:38 Source of Information: Reports: Patient History Limitations: Reports: No Limitations - History of Present Illness INITIAL COMMENTS - FREE TEXT/NARRATIVE: Patient comes to ER with complaint of burning pain across upper bilateral chest and upper back. No other radiation of pain reported. Started shortly before deciding to come to ER. Has had similar pain in past, but not as severe as today's episode. Notes her heart rate is faster than usual. Notes that heat rate was elevated during previous episodes. Only thing that makes it better historically is drinking water. Nothing specifically makes it worse. Inte rmittent dizziness. Had headache last night but that went away on own. Recent cardioversion for Aflutter July 04. Stress test July 18. Angiogram 08/08 (two days ago). Passed stress test and angiogram. Was off Warfarin for the Angiogram. Has restarted it. Only medicine change was Norvasc started July 25 Denies recent infection/illness. No fever/chills. Denies HEENT changes. No SOB/cough/respiratory changes. No sweating. No nausea/emesis/bowel changes/abd pain. No UTI/ changes. No focal neuro changes/one sided weakness. Chest Pain Score (Numeric/FACES): 3 - Related Data Allergies Allergy/AdvReac Type Severity Reaction Status Date / Time iopamidol [From Isovue-M] Allergy Mild Rash Verified 06/17/20 18:16 Home Meds: Home Meds Multivitamin [Multi-Vitamin Daily] 1 tab PO DAILY 12/27/15 [History] Furosemide [Lasix] 20 mg PO DAILY #30 tablet 12/31/15 [Rx] Spironolactone [Aldactone] 25 mg PO DAILY #30 tablet 12/31/15 [Rx] Warfarin [Coumadin] 5 mg PO MOWEFR@1800 06/30/17 [History] Warfarin [Coumadin] 7.5 mg PO SUTUTHSA@1800 06/30/17 [History] Albuterol/Ipratropium [DuoNeb 3.0-0.5 MG/3 ML] 3 ml INH Q6HR PRN 06/17/20 [History] Budesonide [Pulmicort] 0.25 mg IH Q12HR 06/17/20 [History] Cholecalciferol (Vitamin D3) [Vitamin D] 5,000 unit PO DAILY 06/17/20 [History] Ezetimibe [Zetia] 10 mg PO BEDTIME 06/17/20 [History] Lutein 6 mg PO DAILY 06/17/20 [History] Metoprolol Succinate [Toprol XL] 50 mg PO DAILY 08/10/20 [History] amLODIPine [Norvasc] 1 tab PO DAILY 08/10/20 [History] Past Medical History HEENT History: Reports: Cataract, Impaired Vision, Other (See Below) Other HEENT History: Patient wears glasses. Bilateral mild cataracts with no surgery to this point. Cardiovascular History: Reports: Afib, Arrhythmia, Blood Clots/VTE/DVT, High Cholesterol, Hypertension, Other (See Below) Other Cardiovascular History: Recurrent atrial fibrillation with rapid ventricular response. Previous first-degree AV block. DVT of the leg with current Coumadin therapy for her atrial fibrillation. Cardiomegaly without history of recurrent CHF. Left atrial enlargement by echocardiogram. Borderline pulmonary hypertension by CTA of the chest however not by echocardiogram. 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 Previous lung biopsy in 1998, non-maliginant. Histocytosis X. Right ninth rib fracture as below in about 2017. Benign bilateral pulmonary granulomas. 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 Gastrointestinal History: Reports: Jaundice, Other (See Below) Other Gastrointestinal History: Possible hepatitis/jaundice during high school. SPD TECH History: Reports: , Spontaneous Other SPD TECH History: Menopause in her 50s. History of hemorrhage in 1966 requiring 3 units of packed red blood cells at that time. First trimester SAB which did require D&C as below. Otherwise full term without complications during pregnancies or deliveries. Musculoskeletal History: Reports: Arthritis, Fracture, Osteoarthritis, Osteoporosis, RA, Other (See Below) Other Musculoskeletal History: Rh factor negative rheumatoid arthritis. Mild scoliosis. Multiple vertebral body compression fractures including thoracic and lumbar region. Right rib fracture as above. Bimalleolar left ankle fracture on 05/14/2020. Psychiatric History: Reports: Anxiety, Depression Endocrine/Metabolic History: Reports: Osteopenia, Osteoporosis Hematologic History: Reports: Anemia, Blood Transfusion(s), Other (See Below) Other Hematologic History: hemorrhage with blood transfusions as above. Immunologic History: Reports: None Oncologic (Cancer) History: Reports: Lung Dermatologic History: Reports: Other (See Below) Other Dermatologic History: Recurrent sebaceous cysts. - Infectious Disease History Infectious Disease History: Reports: Chicken Pox, Measles, Mumps, Shingles - Past Surgical History Head Surgeries/Procedures: Reports: None HEENT Surgical History: Reports: Oral Surgery, Other (See Below) Other HEENT Surgeries/Procedures: Complete teeth extraction with current complete dentures uppers and lowers. Cardiovascular Surgical History: Reports: None Other Cardiovascular Surgeries/Procedures: Phlebitis Respiratory Surgical History: Reports: Lung Biopsies, Other (See Below) Other Respiratory Surgeries/Procedures: Lung biopsy 1999 for benign disease as above with subsequent positive needle biopsy of the right upper lobe for non- small cell carcinoma on 04/12/2019. GI Surgical History: Reports: Colonoscopy, Other (See Below) Other GI Surgeries/Procedures: Colonoscopy on 03/24/2007. Female Surgical History: Reports: D&C, Dilitation & Evacuation, Other (See Below) Other Female Surgeries/Procedures: D&C secondary to SAB as above. Endocrine Surgical History: Reports: None Musculoskeletal Surgical History: Reports: None Oncologic Surgical History: Reports: None Dermatological Surgical History: Reports: Other (See Below) - Past Imaging History Past Imaging History: Reports: JES Screen ( Negative on 01/17/2019.), Cardiac Echo (Last echocardiogram on 07/01/2017 with ejection fraction of 55-60% and findings as above. Previous echocardiogram on 12/31/2015.), CAT Scan (Negative CT of the chest on 12/27/2015. CT of the chest with IV contrast on 02/29/2020 and 11/03/2013. CT of the chest without contrast on 06/06/2020, 09/21/2019, 03/22/2019, 03/21/2018, and 05/16/2008.), Mammogram (Last mammogram on 01/11/2020.), PET (Whole body PET scan on 03/29/2019.), PFT (PFTs including diffusion studies and pulmonary stress test on 02/26/2020 and 09/26/2019 with multiple previous PFT evaluations.) Social & Family History - Family History HEENT: Reports: Macular Degeneration, Other (See Below) Other HEENT Family History: Mother with macular degeneration. Cardiac: Reports: Afib, High Cholesterol, Other (See Below) Other Cardiac Family History: Brother with atrial fibrillation and hyperlipidemia. Respiratory: Reports: None GI: Reports: Colon Polyps, Other (See Below) Other GI Family History: Brother with colon cancer as below. : Reports: None OBGYN: Reports: None Musculoskeletal: Reports: Arthritis Other Musculoskeletal Family History: Maternal aunts x2 with rheumatoid arthritis. Neurological: Reports: None Psychiatric: Reports: None Endocrine/Metabolic: Reports: None Hematologic: Reports: None Immunologic: Reports: None Dermatologic: Reports: Other (See Below) Other Dermatologic Family History: Mother and 4 children with recurrent sebaceous cysts. Oncologic: Reports: Colon, Other (See Below) Other Oncologic Family History: Brother with colon cancer in his 60s. 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 ED EXAM, GENERAL - Physical Exam Exam: See Below Exam Limited By: No Limitations General Appearance: Alert, WD/WN, Anxious Eye Exam: Bilateral Eye: EOMI, PERRL Ears: Hearing Grossly Normal Nose: No: Nasal Deformity, Nasal Swelling, Nasal Drainage Throat/Mouth: Normal Lips, Normal Voice, No Airway Compromise Head: Atraumatic, Normocephalic Neck: Supple, Non-Tender, Full Range of Motion Respiratory/Chest: No Respiratory Distress, Lungs Clear, Normal Breath Sounds, No Accessory Muscle Use, Chest Non-Tender Cardiovascular: Normal Peripheral Pulses, Tachycardia GI/Abdominal: Normal Bowel Sounds, Non-Tender, No Distention (Female) Exam: Deferred Rectal (Female) Exam: Deferred Back Exam: No: CVA Tenderness (L), CVA Tenderness (R) Extremities: Non-Tender, No Pedal Edema, Normal Capillary Refill Neurological: Alert, Oriented, CN II-XII Intact, Normal Cognition, Normal Gait, No Motor/Sensory Deficits Psychiatric: Anxious Skin Exam: Warm, Dry, Intact, Normal Color #1 Interpretation EKG Date: 08/10/20 Time: 11:25 Rhythm: Other (tachycardia) Rate (Beats/Min): 124 Sanford: Normal P-Wave: Present QRS: Normal ST-T: Other (no obvious acute changes suggestive of ischemia) QT: Normal #2 Interpretation EKG Date: 08/10/20 Time: 12:21 Rhythm: A-Flutter Rate (Beats/Min): 66 Sanford: RAD-Right Sanford Deviation P-Wave: Absent QRS: Normal ST-T: Normal QT: Normal Comparison: Change From Previous EKG Course - Vital Signs Last Recorded V/S: Last Vital Signs Temp 36.6 C 08/10/20 11:25 Pulse 124 H 08/10/20 11:25 Resp 22 H 08/10/20 11:25 BP 118/81 08/10/20 11:25 Pulse Ox 96 08/10/20 11:25 - Orders/Labs/Meds Orders: Active Orders 24 hr Category Date Time Status Cardiac Monitoring [RC] . DIRECTED Care 08/10/20 11:45 Active EKG Documentation Completion [RC] ASDIRECTED Care 08/10/20 11:41 Active EKG Documentation Completion [RC] ASDIRECTED Care 08/10/20 12:15 Active Oxygen Therapy [RC] ASDIRECTED Care 08/10/20 11:44 Active Chest 2V [CR] Stat Exams 08/10/20 11:44 Taken Sodium Chloride 0.9% [Saline Flush] Med 08/10/20 11:44 Active 10 ml FLUSH ASDIRECTED PRN Saline Lock Insert [OM.PC] Routine Oth 08/10/20 11:44 Ordered Medication Orders Sodium Chloride (Sodium Chloride 0.9% 10 Ml Syringe) 10 ml FLUSH ASDIRECTED PRN PRN Reason: Keep Vein Open Last Admin: 08/10/20 12:22 Dose: 10 ml Documented by: GUY Labs: Laboratory Tests 08/10/20 08/10/20 08/10/20 Range/Units 11:35 11:35 11:35 WBC 9.0 (4.0-10.2) K/uL RBC 5.23 H (3.77-5.09) M/uL Hgb 15.0 D (11.7-15.5) g/dL Hct 45.9 (34.0-46.0) % MCV 87.8 (84.0-98.0) fL MCH 28.7 (28.2-33.3) pg MCHC 32.7 (31.7-36.0) g/dL RDW 14.5 H (11.2-14.1) % Plt Count 283 (150-350) K/uL Neut % (Auto) 58.0 (45.0-80.0) % Lymph % (Auto) 29.4 (10.0-50.0) % Shelby % (Auto) 9.8 (2.0-14.0) % Eos % (Auto) 2.4 (0.0-5.0) % Baso % (Auto) 0.4 (0.0-2.0) % Neut # (Auto) 5.23 (1.40-7.00) K/uL Lymph # (Auto) 2.66 (0.50-3.50) K/uL Shelby # (Auto) 0.89 (0.00-1.00) K/uL Eos # (Auto) 0.22 (0.00-0.50) K/uL Baso # (Auto) 0.04 (0.00-0.20) K/uL PT 11.8 D (9.5-12.0) SEC INR 1.2 APTT 27.0 (24.5-32.8) SEC D-Dimer, Quantitative 269 (0-400) ng/mL Sodium (136-145) mmol/L Potassium (3.5-5.1) mmol/L Chloride (98-107) mmol/L Carbon Dioxide (21.0-32.0) mmol/L BUN (7-18) mg/dL Creatinine (0.51-1.17) mg/dL Est Cr Clr Drug Dosing mL/min Estimated GFR (MDRD) mL/min Glucose (70-99) mg/dL Lactic Acid (0.4-2.0) mmol/L Calcium (8.5-10.1) mg/dL Magnesium (1.8-2.4) mg/dL Total Bilirubin (0.2-1.0) mg/dL AST (15-37) U/L ALT (12-78) U/L Alkaline Phosphatase (46-116) IU/L Creatine Kinase (26-308) U/L Creatine Kinase Index (0.0-2.5) % CK-MB (CK-2) (0.00-3.60) ng/mL Troponin I (0.000-0.056) ng/mL NT-Pro-B Natriuret Pep (0-125) pg/mL Total Protein (6.4-8.2) g/dL Albumin (3.4-5.0) g/dL TSH, Ultra Sensitive (0.358-3.740) mIU/mL Specimen Type Urine Color Urine Appearance Urine pH (5.0-9.0) Ur Specific Hammon (1.005-1.030) Urine Protein (NEGATIVE) mg/dL Urine Glucose (UA) (NEGATIVE) mg/dL Urine Ketones (NEGATIVE) mg/dL Urine Occult Blood (NEGATIVE) Urine Nitrite (NEGATIVE) Urine Bilirubin (NEGATIVE) Urine Urobilinogen (0.2-1.0) E.U./dL Ur Leukocyte Esterase (NEGATIVE) Urine RBC /HPF Urine WBC /HPF Ur Epithelial Cells /LPF Urine Bacteria (NONE TO FEW) /HPF 08/10/20 08/10/20 08/10/20 Range/Units 11:35 11:35 11:38 WBC (4.0-10.2) K/uL RBC (3.77-5.09) M/uL Hgb (11.7-15.5) g/dL Hct (34.0-46.0) % MCV (84.0-98.0) fL MCH (28.2-33.3) pg MCHC (31.7-36.0) g/dL RDW (11.2-14.1) % Plt Count (150-350) K/uL Neut % (Auto) (45.0-80.0) % Lymph % (Auto) (10.0-50.0) % Shelby % (Auto) (2.0-14.0) % Eos % (Auto) (0.0-5.0) % Baso % (Auto) (0.0-2.0) % Neut # (Auto) (1.40-7.00) K/uL Lymph # (Auto) (0.50-3.50) K/uL Shelby # (Auto) (0.00-1.00) K/uL Eos # (Auto) (0.00-0.50) K/uL Baso # (Auto) (0.00-0.20) K/uL PT (9.5-12.0) SEC INR APTT (24.5-32.8) SEC D-Dimer, Quantitative (0-400) ng/mL Sodium 139 (136-145) mmol/L Potassium 4.1 (3.5-5.1) mmol/L Chloride 101 (98-107) mmol/L Carbon Dioxide 27.7 (21.0-32.0) mmol/L BUN 14 (7-18) mg/dL Creatinine 0.77 (0.51-1.17) mg/dL Est Cr Clr Drug Dosing 55.06 mL/min Estimated GFR (MDRD) > 60 mL/min Glucose 113 H (70-99) mg/dL Lactic Acid 1.2 (0.4-2.0) mmol/L Calcium 9.1 (8.5-10.1) mg/dL Magnesium 2.0 (1.8-2.4) mg/dL Total Bilirubin 0.7 (0.2-1.0) mg/dL AST 19 (15-37) U/L ALT 25 (12-78) U/L Alkaline Phosphatase 73 (46-116) IU/L Creatine Kinase 61 (26-308) U/L Creatine Kinase Index 3.1 H (0.0-2.5) % CK-MB (CK-2) 1.90 (0.00-3.60) ng/mL Troponin I 0.000 (0.000-0.056) ng/mL NT-Pro-B Natriuret Pep 4661 H (0-125) pg/mL Total Protein 7.6 (6.4-8.2) g/dL Albumin 3.9 (3.4-5.0) g/dL TSH, Ultra Sensitive 3.232 (0.358-3.740) mIU/mL Specimen Type Urinvoid Urine Color Yellow Urine Appearance Clear Urine pH 7.5 (5.0-9.0) Ur Specific Hammon 1.020 (1.005-1.030) Urine Protein Negative (NEGATIVE) mg/dL Urine Glucose (UA) Negative (NEGATIVE) mg/dL Urine Ketones Negative (NEGATIVE) mg/dL Urine Occult Blood Trace-intact H (NEGATIVE) Urine Nitrite Negative (NEGATIVE) Urine Bilirubin Negative (NEGATIVE) Urine Urobilinogen 0.2 (0.2-1.0) E.U./dL Ur Leukocyte Esterase Negative (NEGATIVE) Urine RBC 0-5 /HPF Urine WBC Not seen /HPF Ur Epithelial Cells Rare /LPF Urine Bacteria Rare (NONE TO FEW) /HPF Meds: Medications Generic Name Dose Route Start Last Admin Trade Name Freq PRN Reason Stop Dose Admin Sodium Chloride 10 ml 08/10/20 11:44 08/10/20 12:22 Sodium Chloride 0.9% 10 Ml Syringe FLUSH 10 ml ASDIRECTED PRN Administration Keep Vein Open Discontinued Medications Generic Name Dose Route Start Last Admin Trade Name Freq PRN Reason Stop Dose Admin Al Hydroxide/Mg Hydroxide 30 ml 08/10/20 12:15 08/10/20 12:21 Gi Cocktail Oral Solution 30 Ml PO 08/10/20 12:16 30 ml ONETIME ONE Administration Diltiazem HCl 15 mg 08/10/20 12:10 08/10/20 12:13 Diltiazem 25 Mg/5 Ml Sdv IVPUSH 08/10/20 12:11 15 mg ONETIME ONE Administration Diltiazem HCl 60 mg 08/10/20 13:50 08/10/20 14:58 Diltiazem Ir 60 Mg Tab PO 08/10/20 13:51 60 mg ONETIME ONE Administration - Radiology Interpretation Free Text/Narrative:: Chest xray appears similar in appearance as one from May 2020. Still has the small area of increased density in right upper lung. - Re-Assessments/Exams Free Text/Narrative Re-Assessment/Exam: 08/10/20 15:15 Patient's discomfort immediately improved after she was given Cardizem and heart rate dropped to 60s. Dizziness also improved when she got up to walk. Still noted to have heart rate elevate with activity. Labs overall unremarkable. Repeat EKG showed A Flutter once rate slowed. Call placed to [facility] and patient reviewed with Straw Hat Brim Cutter Operator, . He did not feel that the pt needed transfer to their facility today nor cardioversion. He was ok with patient staying here for rate control intervention. Patient admitted observation. Departure - Departure Time of Disposition: 14:45 Disposition: Refer to Observation Condition: Good Clinical Impression: Atrial flutter with rapid ventricular response - Discharge Information *PRESCRIPTION DRUG MONITORING PROGRAM REVIEWED*: Not Applicable *COPY OF PRESCRIPTION DRUG MONITORING REPORT IN PATIENT ADDY: Not Applicable Instructions: Diltiazem Oral Tablets Referrals: Yesica Torres PA [Primary Care Provider] - Forms: ED Department Discharge Sepsis Event Note (ED) - Evaluation Sepsis Screening Result: Possible Sepsis Risk - Focused Exam Vital Signs: Vital Signs Temp Pulse Resp BP Pulse Ox 08/10/20 11:25 36.6 C 124 H 22 H 118/81 96 - Problem List & Annotations (1) Atrial flutter with rapid ventricular response SNOMED Code(s): 1850293, 7685035 Code(s): I48.92 - UNSPECIFIED ATRIAL FLUTTER Status: Acute Priority: High Current Visit: Yes Annotation/Comment:: History of previous issues with Afib and Aflutter with RVR. Cardioversion last month. Recent normal stress test and angiogram. Chest discomfort and dizziness improved with rate control. Negative troponin. No evidence of acute ischemia on EKG. Discussed patient with her Straw Hat Brim Cutter Operator at [facility], . Plan for now is to keep her here on observation, work on rate control, and perform serial troponins for r/o WA protocol (2) CHF (congestive heart failure) SNOMED Code(s): 55600787 Code(s): I50.9 - HEART FAILURE, UNSPECIFIED Status: Acute Priority: High Current Visit: No Onset Date: 06/17/20 Annotation/Comment:: Note history of chronic CHF with no significant clinical CHF by today's findings. Patient has a significant cardiac history as above including patent foramina ovale, enlarged pulmonary artery, etc. as above. ProBNP 4661 Qualifiers: Heart failure type: systolic Heart failure chronicity: chronic Qualified Code(s): I50.22 - Chronic systolic (congestive) heart failure (3) Osteoarthritis SNOMED Code(s): 799983098 Code(s): M19.90 - UNSPECIFIED OSTEOARTHRITIS, UNSPECIFIED SITE Status: Chronic Priority: Medium Current Visit: No Annotation/Comment:: History of rheumatoid arthritisstable by history. Qualifiers: Osteoarthritis location: multiple joints Osteoarthritis type: primary Qualified Code(s): M89.49 - Other hypertrophic osteoarthropathy, multiple sites (4) Hyperlipidemia SNOMED Code(s): 52583595 Code(s): E78.5 - HYPERLIPIDEMIA, UNSPECIFIED Status: Chronic Priority: Medium Current Visit: No Annotation/Comment:: Under therapy. Lipid panel was relatively normal with current medical therapy with additional normal glycosylated hemoglobin of 5.3% on 06/18/2020. Qualifiers: Hyperlipidemia type: mixed hyperlipidemia Qualified Code(s): E78.2 - Mixed hyperlipidemia (5) Hypertension SNOMED Code(s): 18545005 Code(s): I10 - ESSENTIAL (PRIMARY) HYPERTENSION Status: Chronic Priority: Medium Current Visit: No Annotation/Comment:: Good control at this time. Qualifiers: Hypertension type: essential hypertension Qualified Code(s): I10 - Essential (primary) hypertension (6) COPD (chronic obstructive pulmonary disease) SNOMED Code(s): 86815487 Code(s): J44.9 - CHRONIC OBSTRUCTIVE PULMONARY DISEASE, UNSPECIFIED Status: Chronic Priority: Medium Current Visit: No Annotation/Comment:: History of severe O2 dependent COPD with additional pulmonary fibrosis. Baseline O2 at 2 L/min oxygen requirement. No recent fever bronchitic type symptoms. Qualifiers: COPD type: emphysema Emphysema type: panlobular Qualified Code(s): J43.1 - Panlobular emphysema - Problem List Review Problem List Initiated/Reviewed/Updated: Yes - My Orders Last 24 Hours: My Active Orders 08/10/20 11:41 EKG Documentation Completion [RC] ASDIRECTED 08/10/20 11:44 Oxygen Therapy [RC] ASDIRECTED Chest 2V [CR] Stat Sodium Chloride 0.9% [Saline Flush] 10 ml FLUSH ASDIRECTED PRN Saline Lock Insert [OM.PC] Routine 08/10/20 11:45 Cardiac Monitoring [RC] . DIRECTED 08/10/20 12:15 EKG Documentation Completion [RC] ASDIRECTED - Assessment/Plan Admission H&P: Please use this note as an admission H&P Last 24 Hours: My Active Orders 08/10/20 11:41 EKG Documentation Completion [RC] ASDIRECTED 08/10/20 11:44 Oxygen Therapy [RC] ASDIRECTED Chest 2V [CR] Stat Sodium Chloride 0.9% [Saline Flush] 10 ml FLUSH ASDIRECTED PRN Saline Lock Insert [OM.PC] Routine 08/10/20 11:45 Cardiac Monitoring [RC] . DIRECTED 08/10/20 12:15 EKG Documentation Completion [RC] ASDIRECTED Assessment:: as above. Stable and suitable for general supervision Plan: as above.
[2020-08-10] MEDS ORDERED: Albuterol/Ipratropium 3.0-0.5 MG/3 ML Neb Soln INH PRN (15:53)
[2020-08-10] MEDS ORDERED: Pantoprazole 40 MG Vial IVPUSH ONE (16:01)
[2020-08-10] MEDS ORDERED: Nitroglycerin 0.4 MG Tab.SL SL PRN (16:02)
[2020-08-10] MEDS ORDERED: Warfarin 5 MG Tab PO SCH (18:00)
[2020-08-10] MEDS ORDERED: amLODIPine 5 MG Tab PO SCH (18:00)
[2020-08-10] MEDS ORDERED: Ezetimibe 10 MG Tab PO SCH (18:00)
[2020-08-10] MEDS ORDERED: Metoprolol Succinate 25 MG Tab.ER PO SCH (18:00)
[2020-08-10] MEDS ORDERED: Enoxaparin 40 MG/0.4 ML Syringe SUBCUT SCH (20:00)
[2020-08-10] MEDS: Budesonide 0.25 MG/2 ML Neb Susp INH SCH (20:08)
[2020-08-10] MEDS ORDERED: Diltiazem 120 MG Cap.CD PO ONE (21:00)
[2020-08-11] MEDS: Budesonide 0.25 MG/2 ML Neb Susp INH SCH (07:38)
[2020-08-11] MEDS ORDERED: Furosemide 20 MG Tab PO SCH (08:00)
[2020-08-11] MEDS ORDERED: Spironolactone 25 MG Tab PO SCH (08:00)
[2020-08-11 11:22] VITALS: BP 109/57; PULSE 85
--- NOTE | 2020-08-11 14:35 | PCM.DCSUM1 ---
Discharge Summary - Hospital Course Brief History: Admitted for further evaluation and treatment of Aflutter/RVR Diagnosis: Stroke: No - Discharge Data Discharge Date: 08/11/20 Discharge Disposition: Home, Self-Care 01 Condition: Good - Referral to Home Health Primary Care Physician: EULOGIO Du - Discharge Diagnosis/Problem(s) (1) Atrial flutter with rapid ventricular response SNOMED Code(s): 7020681, 8868503 ICD Code: I48.92 - UNSPECIFIED ATRIAL FLUTTER Status: Acute Priority: High Current Visit: Yes Problem Details: Continues to have Afib with RVR noted anytime she gets up to sit on side of bed or ambulate. History of previous issues with Afib and Aflutter with RVR. Cardioversion last month. Recent normal stress test and angiogram. Chest discomfort and dizziness improved with rate control. Negative troponins. No evidence of acute ischemia on EKG. 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, prior to admission. (2) CHF (congestive heart failure) SNOMED Code(s): 22720238 ICD Code: I50.9 - HEART FAILURE, UNSPECIFIED Status: Acute Priority: High Current Visit: No Onset Date: 06/17/20 Problem Details: Note history of chronic CHF with no significant clinical CHF by today's findings. Patient has a significant cardiac history as above including patent foramina ovale, enlarged pulmonary artery, etc. as above. ProBNP 4661 Qualifiers: Heart failure type: systolic Heart failure chronicity: chronic Qualified Code(s): I50.22 - Chronic systolic (congestive) heart failure (3) Osteoarthritis SNOMED Code(s): 963867353 ICD Code: M19.90 - UNSPECIFIED OSTEOARTHRITIS, UNSPECIFIED SITE Status: Chronic Priority: Medium Current Visit: No Problem Details: History of rheumatoid arthritisstable by history. Qualifiers: Osteoarthritis location: multiple joints Osteoarthritis type: primary Qualified Code(s): M89.49 - Other hypertrophic osteoarthropathy, multiple sites (4) Hyperlipidemia SNOMED Code(s): 51594623 ICD Code: E78.5 - HYPERLIPIDEMIA, UNSPECIFIED Status: Chronic Priority: Medium Current Visit: No Problem Details: Under therapy. Lipid panel was relatively normal with current medical therapy with additional normal glycosylated hemoglobin of 5.3% on 06/18/2020. Qualifiers: Hyperlipidemia type: mixed hyperlipidemia Qualified Code(s): E78.2 - Mixed hyperlipidemia (5) Hypertension SNOMED Code(s): 50098171 ICD Code: I10 - ESSENTIAL (PRIMARY) HYPERTENSION Status: Chronic Priority: Medium Current Visit: No Problem Details: Good control at this time. 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 Baseline O2 at 2 L/min oxygen requirement. No recent fever bronchitic type symptoms. Qualifiers: COPD type: emphysema Emphysema type: panlobular Qualified Code(s): J43.1 - Panlobular emphysema - Patient Summary/Data Hospital Course: Patient continued to have Afib/Aflutter on monitor during observation stay. Chest pain resolved overnight while she was resting. Had some mild discomfort when she was up and ambulating today and heart rate elevated with the activity. BP continues to trend low despite her two evening BP meds being held. Orthostatics performed and patient noted to drop to 90/52 with HR 128 when standing. Not candidate for additional Cardizem or Beta Khoa due to risk of worsening hypotension. INR continues to be subtherapeutic due to Warfarin being held for recent angiogram. Bridging with Lovenox initiated. Patient likely candidate for cardioversion. Cardiac echo prior to cardioversion as precaution would be able to be performed in [place]. Call placed to [facility] and arrangements for transfer with accepting Dr.MkPozi CLINT. - Discharge Plan *PRESCRIPTION DRUG MONITORING PROGRAM REVIEWED*: Not Applicable *COPY OF PRESCRIPTION DRUG MONITORING REPORT IN PATIENT ADDY: Not Applicable Home Medications: Home Meds Multivitamin [Multi-Vitamin Daily] 1 tab PO DAILY 12/27/15 [History] Furosemide [Lasix] 20 mg PO DAILY #30 tablet 12/31/15 [Rx] Spironolactone [Aldactone] 25 mg PO DAILY #30 tablet 12/31/15 [Rx] Warfarin [Coumadin] 5 mg PO MOWEFR@1800 06/30/17 [History] Warfarin [Coumadin] 7.5 mg PO SUTUTHSA@1800 06/30/17 [History] Albuterol/Ipratropium [DuoNeb 3.0-0.5 MG/3 ML] 3 ml INH Q6HR PRN 06/17/20 [History] Budesonide [Pulmicort] 0.25 mg IH Q12HR 06/17/20 [History] Cholecalciferol (Vitamin D3) [Vitamin D] 5,000 unit PO DAILY 06/17/20 [History] Ezetimibe [Zetia] 10 mg PO DAILY@06/17/20 [History] Lutein 6 mg PO DAILY 06/17/20 [History] Metoprolol Succinate [Toprol XL] 50 mg PO DAILY@18 08/10/20 [History] amLODIPine [Norvasc] 1 tab PO DAILY@08/10/20 [History] Patient Handouts: Diltiazem Oral Tablets Forms: ED Department Discharge Referrals: Yesica Torres PA [Primary Care Provider] - - Discharge Summary/Plan Comment DC Time >30 min.: No - General Info Date of Service: 08/11/20 Admission Dx/Problem (Free Text: Aflutter/RVR Subjective Update: Feels better when she rests/pain-free. No new changes. Functional Status: Reports: Pain Controlled, Tolerating Diet, Ambulating, Urinating. Denies: New Symptoms - Review of Systems General: Reports: No Symptoms HEENT: Reports: Glasses Pulmonary: Reports: No Symptoms Cardiovascular: Reports: Chest Pain (improved/resolved when resting), Palpitations (when ambulating), Lightheadedness (improved/resolved when resting). Denies: Dyspnea on Exertion, Orthopnea, PND, Edema Gastrointestinal: Reports: No Symptoms Genitourinary: Reports: No Symptoms Musculoskeletal: Reports: Other (no acute changes from baseline) Skin: Reports: No Symptoms Neurological: Denies: Confusion, Headache, Numbness, Paresthesia, Seizure, Syncope, Trouble Speaking, Change in Speech Psychiatric: Reports: No Symptoms - Patient Data Vitals - Most Recent: Last Vital Signs Temp 36.7 C 08/11/20 11:00 Pulse 85 08/11/20 11:00 Resp 16 08/11/20 11:00 BP 109/57 L 08/11/20 11:00 Pulse Ox 97 08/11/20 11:00 Orthostatic Blood Pressure [ 90/52 Standing] Orthostatic Blood Pressure [ 111/64 Sitting] Orthostatic Blood Pressure [ 109/57 Supine] Weight - Most Recent: 77.111 kg I&O - Last 24 hours: Intake & Output 08/10/20 08/11/20 08/11/20 22:59 06:59 14:59 Intake Total 480 Balance 480 Lab Results - Last 24 hrs: Laboratory Results - last 24 hr 08/11/20 08/11/20 08/11/20 Range/Units 08:20 08:20 08:20 WBC 7.6 (4.0-10.2) K/uL RBC 5.34 H (3.77-5.09) M/uL Hgb 15.4 (11.7-15.5) g/dL Hct 47.0 H (34.0-46.0) % MCV 88.0 (84.0-98.0) fL MCH 28.8 (28.2-33.3) pg MCHC 32.8 (31.7-36.0) g/dL RDW 14.6 H (11.2-14.1) % Plt Count 254 (150-350) K/uL Neut % (Auto) 54.0 (45.0-80.0) % Lymph % (Auto) 30.6 (10.0-50.0) % Kane % (Auto) 11.6 (2.0-14.0) % Eos % (Auto) 3.4 (0.0-5.0) % Baso % (Auto) 0.4 (0.0-2.0) % Neut # (Auto) 4.09 (1.40-7.00) K/uL Lymph # (Auto) 2.32 (0.50-3.50) K/uL Kane # (Auto) 0.88 (0.00-1.00) K/uL Eos # (Auto) 0.26 (0.00-0.50) K/uL Baso # (Auto) 0.03 (0.00-0.20) K/uL PT 12.6 H (9.5-12.0) SEC INR 1.3 Sodium 139 (136-145) mmol/L Potassium 4.3 (3.5-5.1) mmol/L Chloride 101 (98-107) mmol/L Carbon Dioxide 31.9 (21.0-32.0) mmol/L BUN 16 (7-18) mg/dL Creatinine 0.93 (0.51-1.17) mg/dL Est Cr Clr Drug Dosing 45.58 mL/min Estimated GFR (MDRD) 58 mL/min Glucose 130 H (70-99) mg/dL Calcium 9.1 (8.5-10.1) mg/dL Troponin I 0.000 (0.000-0.056) ng/mL Med Orders - Current: Current Medications Albuterol/Ipratropium (Albuterol/Ipratropium 3.0-0.5 Mg/3 Ml Neb Soln) 3 ml INH Q6HR PRN PRN Reason: Shortness of Breath Amlodipine Besylate (Amlodipine 5 Mg Tab) 2.5 mg PO DAILY@18 [facility] Budesonide (Budesonide 0.25 Mg/2 Ml Neb Susp) 0.25 mg INH [id number] [facility] Last Admin: 08/11/20 07:38 Dose: 0.25 mg Documented by: Ezetimibe (Ezetimibe 10 Mg Tab) 10 mg PO DAILY@18 [facility] Last Admin: 08/10/20 17:16 Dose: 10 mg Documented by: Enoxaparin Sodium (Enoxaparin 40 Mg/0.4 Ml Syringe) 40 mg SUBCUT DAILY@1999 [facility] Last Admin: 08/10/20 20:07 Dose: 40 mg Documented by: Furosemide (Furosemide 20 Mg Tab) 20 mg PO DAILY [facility] Last Admin: 08/11/20 07:37 Dose: 20 mg Documented by: Metoprolol Succinate (Metoprolol Succinate 25 Mg Tab.Er) 50 mg PO DAILY@18 [facility] Nitroglycerin (Nitroglycerin 0.4 Mg Tab.Sl) 0.4 mg SL Q5M PRN PRN Reason: Chest Pain Sodium Chloride (Sodium Chloride 0.9% 10 Ml Syringe) 10 ml FLUSH ASDIRECTED PRN PRN Reason: Keep Vein Open Last Admin: 08/10/20 17:20 Dose: 10 ml Documented by: Spironolactone (Spironolactone 25 Mg Tab) 25 mg PO DAILY [facility] Last Admin: 08/11/20 07:37 Dose: 25 mg Documented by: Warfarin Sodium (Warfarin 5 Mg Tab) 5 mg PO MOWEFR@1800 [facility] Warfarin Sodium (Warfarin 5 Mg Tab) 7.5 mg PO SUTUTHSA@1800 [facility] Last Admin: 08/10/20 17:19 Dose: 7.5 mg Documented by: Discontinued Medications Al Hydroxide/Mg Hydroxide (Gi Cocktail Oral Solution 30 Ml) 30 ml PO ONETIME ONE Stop: 08/10/20 12:16 Last Admin: 08/10/20 12:21 Dose: 30 ml Documented by: Diltiazem HCl (Diltiazem 25 Mg/5 Ml Sdv) 15 mg IVPUSH ONETIME ONE Stop: 08/10/20 12:11 Last Admin: 08/10/20 12:13 Dose: 15 mg Documented by: Diltiazem HCl (Diltiazem Ir 60 Mg Tab) 60 mg PO ONETIME ONE Stop: 08/10/20 13:51 Last Admin: 08/10/20 14:58 Dose: 60 mg Documented by: Diltiazem HCl (Diltiazem 120 Mg Cap.Cd) 120 mg PO ONETIME ONE Stop: 08/10/20 21:01 Last Admin: 08/10/20 20:09 Dose: 120 mg Documented by: Pantoprazole Sodium (Pantoprazole 40 Mg Vial) 40 mg IVPUSH ONETIME ONE Stop: 08/10/20 16:02 Last Admin: 08/10/20 17:16 Dose: 40 mg Documented by: #1 Interpretation EKG Date: 08/11/20 Time: 07:57 Rhythm: A-Fib Rate (Beats/Min): 108 [place]: RAD-Right [place] Deviation P-Wave: Absent QRS: Normal ST-T: Normal QT: Normal Comparison: No Change
[2020-08-12] MEDS ORDERED: Warfarin 5 MG Tab PO SCH (18:00)
== END 2020-08-11 14:55 | disposition home or self-care (01) ==
LOC: LL.ED 11:19 → LL.MS 14:10
PROVIDERS: ADMIT Emergency Medicine; ATTEND Emergency Medicine
DX: I48.92 Unspecified atrial flutter (principal); I11.0 Hypertensive heart disease with heart failure; J43.1 Panlobular emphysema; I50.22 Chronic systolic (congestive) heart failure; M89.49 Other hypertrophic osteoarthropathy, multiple sites; E78.2 Mixed hyperlipidemia; R91.8 Other nonspecific abnormal finding of lung field; E78.00 Pure hypercholesterolemia, unspecified; Z79.01 Long term (current) use of anticoagulants; Z79.899 Other long term (current) drug therapy; Z88.8 Allergy status to other drugs, medicaments and biological substances; Z85.118 Personal history of other malignant neoplasm of bronchus and lung; Z98.890 Other specified postprocedural states
CPT/HCPCS: 36415; 71046; 80048; 80053; 81001; 82550; 82553; 83605; 83735; 83880; 84443; 84484; 85025; 85379; 85610; 85730; 93005; 94640; 96372; 96374; 96375; 99285-25; A9270-GY; C9113; G0378; J1650; J3490

== ENCOUNTER 2021-01-05 13:25 | Emergency (ER) | payer MEDICARE, OTHER ==
[2021-01-05 17:01] VITALS: PULSE 60
[2021-01-05 17:02] VITALS: BP 117/55
--- NOTE | 2021-01-06 07:51 | EDM.PDOC ---
ED HPI GENERAL MEDICAL PROBLEM - General Chief Complaint: Upper Extremity Injury/Pain Stated Complaint: fall, right wrist pain Time Seen by Provider: 01/05/21 13:26 Source of Information: Reports: Patient, Family History Limitations: Reports: No Limitations - History of Present Illness INITIAL COMMENTS - FREE TEXT/NARRATIVE: Pt. sustained an injury to R wrist post fall. Pt. states that she tripped over a dog. She denied any chest pain, shortness of breath, lightheadedness or other symptoms prior to the fall. Pt. states that she also injured her R knee and R lateral ribs, but states that the discomfort in the ribs is minimal. Pt. also sustained a superficial skin tear to R wrist as well as to her R anterior knee area. Denies any current chest pain, increased shortness of breath, lightheadedness, nausea, or vomiting. Denies any numbness/tingling in fingers or R hand. Onset Date: 01/05/21 Location: Reports: Chest, Upper Extremity, Right, Lower Extremity, Right Right Wrist Pain Score (Numeric/FACES): 2 - Related Data Allergies Allergy/AdvReac Type Severity Reaction Status Date / Time iopamidol [From Isovue-M] Allergy Mild Rash Verified 01/05/21 13:33 Home Meds: Home Meds Multivitamin [Multi-Vitamin Daily] 1 tab PO DAILY 12/27/15 [History] Furosemide [Lasix] 20 mg PO DAILY #30 tablet 12/31/15 [Rx] Warfarin [Coumadin] 5 mg PO FR@18 06/30/17 [History] Warfarin [Coumadin] 7.5 mg PO SUMOTUWETHSA@1800 06/30/17 [History] Albuterol/Ipratropium [DuoNeb 3.0-0.5 MG/3 ML] 3 ml INH Q6HR PRN 06/17/20 [History] Budesonide [Pulmicort] 0.5 mg IH Q12HR 06/17/20 [History] Cholecalciferol (Vitamin D3) [Vitamin D] 5,000 unit PO DAILY 06/17/20 [History] Ezetimibe [Zetia] 10 mg PO DAILY@18 06/17/20 [History] Lutein 6 mg PO DAILY 06/17/20 [History] Aspirin [Halfprin] 81 mg PO DAILY 01/05/21 [History] Sotalol [Betapace] 80 mg PO DAILY 01/05/21 [History] Past Medical History HEENT History: Reports: Cataract, Impaired Vision, Other (See Below) Other HEENT History: Patient wears glasses. Bilateral mild cataracts with no surgery to this point. Cardiovascular History: Reports: Afib, Arrhythmia, Blood Clots/VTE/DVT, High Cholesterol, Hypertension, Other (See Below) Other Cardiovascular History: Recurrent atrial fibrillation with rapid ventricular response. Previous first-degree AV block. DVT of the leg with current Coumadin therapy for her atrial fibrillation. Cardiomegaly without history of recurrent CHF. Left atrial enlargement by echocardiogram. Borderline pulmonary hypertension by CTA of the chest however not by echocardiogram. 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 Previous lung biopsy in 1998, non-maliginant. Histocytosis X. Right ninth rib fracture as below in about 2016. Benign bilateral pulmonary granulomas. 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 Gastrointestinal History: Reports: Jaundice, Other (See Below) Other Gastrointestinal History: Possible hepatitis/jaundice during high school. LUMBER CUTTER History: Reports: , Spontaneous Other LUMBER CUTTER History: Menopause in her 50s. History of hemorrhage in 1965 requiring 3 units of packed red blood cells at that time. First trimester SAB which did require D&C as below. Otherwise full term without complications during pregnancies or deliveries. Musculoskeletal History: Reports: Arthritis, Fracture, Osteoarthritis, Osteoporosis, RA, Other (See Below) Other Musculoskeletal History: Rh factor negative rheumatoid arthritis. Mild scoliosis. Multiple vertebral body compression fractures including thoracic and lumbar region. Right rib fracture as above. Bimalleolar left ankle fracture on 05/14/2020. Psychiatric History: Reports: Anxiety, Depression Endocrine/Metabolic History: Reports: Osteopenia, Osteoporosis Hematologic History: Reports: Anemia, Blood Transfusion(s), Other (See Below) Other Hematologic History: hemorrhage with blood transfusions as above. Immunologic History: Reports: None Oncologic (Cancer) History: Reports: Lung Dermatologic History: Reports: Other (See Below) Other Dermatologic History: Recurrent sebaceous cysts. - Infectious Disease History Infectious Disease History: Reports: Chicken Pox, Measles, Mumps, Shingles - Past Surgical History Head Surgeries/Procedures: Reports: None HEENT Surgical History: Reports: Oral Surgery, Other (See Below) Other HEENT Surgeries/Procedures: Complete teeth extraction with current complete dentures uppers and lowers. Cardiovascular Surgical History: Reports: None Other Cardiovascular Surgeries/Procedures: Phlebitis Respiratory Surgical History: Reports: Lung Biopsies, Other (See Below) Other Respiratory Surgeries/Procedures: Lung biopsy 1998 for benign disease as above with subsequent positive needle biopsy of the right upper lobe for non- small cell carcinoma on 04/12/2019. GI Surgical History: Reports: Colonoscopy, Other (See Below) Other GI Surgeries/Procedures: Colonoscopy on 03/24/2007. Female Surgical History: Reports: D&C, Dilitation & Evacuation, Other (See Below) Other Female Surgeries/Procedures: D&C secondary to SAB as above. Endocrine Surgical History: Reports: None Musculoskeletal Surgical History: Reports: None Oncologic Surgical History: Reports: None Dermatological Surgical History: Reports: Other (See Below) - Past Imaging History Past Imaging History: Reports: JES Screen ( Negative on 01/17/2019.), Cardiac Echo (Last echocardiogram on 07/01/2017 with ejection fraction of 55-60% and findings as above. Previous echocardiogram on 12/31/2015.), CAT Scan (Negative CT of the chest on 12/27/2015. CT of the chest with IV contrast on 02/29/2020 and 11/03/2013. CT of the chest without contrast on 06/06/2020, 09/21/2019, 03/22/2019, 03/21/2018, and 05/16/2008.), Mammogram (Last mammogram on 01/11/2020.), PET (Whole body PET scan on 03/29/2019.), PFT (PFTs including diffusion studies and pulmonary stress test on 02/26/2020 and 09/26/2019 with multiple previous PFT evaluations.) Social & Family History - Family History HEENT: Reports: Macular Degeneration, Other (See Below) Other HEENT Family History: Mother with macular degeneration. Cardiac: Reports: Afib, High Cholesterol, Other (See Below) Other Cardiac Family History: Brother with atrial fibrillation and hyperlipi demia. Respiratory: Reports: None GI: Reports: Colon Polyps, Other (See Below) Other GI Family History: Brother with colon cancer as below. : Reports: None OBGYN: Reports: None Musculoskeletal: Reports: Arthritis Other Musculoskeletal Family History: Maternal aunts x2 with rheumatoid arthritis. Neurological: Reports: None Psychiatric: Reports: None Endocrine/Metabolic: Reports: None Hematologic: Reports: None Immunologic: Reports: None Dermatologic: Reports: Other (See Below) Other Dermatologic Family History: Mother and 4 children with recurrent sebaceous cysts. Oncologic: Reports: Colon, Other (See Below) Other Oncologic Family History: Brother with colon cancer in his 60s. - Tobacco Use Tobacco Use Status *Q: Former Tobacco User Used Tobacco, but Quit: Yes Month/Year Tobacco Last Used: 2016 - Caffeine Use Caffeine Use: Reports: Coffee - Living Situation & Occupation Living situation: Reports: (2016), with Significant Other Occupation: Retired (2016 with previous long term work at [employer].) Review of Systems - Review of Systems Review Of Systems: See Below Constitutional: Reports: No Symptoms Eyes: Reports: No Symptoms Ears: Reports: No Symptoms Nose: Reports: No Symptoms Mouth/Throat: Reports: No Symptoms Respiratory: Reports: Pleuritic Chest Pain, Other (History of chronic lung disease, on home O2. No increased shortness of breath post fall.) Cardiovascular: Reports: No Symptoms GI/Abdominal: Reports: No Symptoms Genitourinary: Reports: No Symptoms Musculoskeletal: Reports: Joint Pain (R wrist and knee), Joint Swelling Skin: Reports: No Symptoms Neurological: Reports: No Symptoms Psychiatric: Reports: No Symptoms ED EXAM, GENERAL - Physical Exam Exam: See Below Exam Limited By: No Limitations General Appearance: Alert, WD/WN, No Apparent Distress Eye Exam: Bilateral Eye: EOMI, PERRL Nose: Normal Inspection, No Blood Throat/Mouth: Normal Inspection, Normal Lips, Normal Oropharynx, Normal Voice, No Airway Compromise Head: Atraumatic, Normocephalic Neck: Normal Inspection, Supple, Non-Tender, Full Range of Motion. No: Tender Lateral, Tender Midline Respiratory/Chest: No Respiratory Distress, Lungs Clear, Normal Breath Sounds, No Accessory Muscle Use, Chest Non-Tender, Other (No bruising, erythema or other obvious injury noted to R lateral chest) Cardiovascular: Normal Peripheral Pulses, Regular Rate, Rhythm, No Edema, No Gallop, No JVD, No Murmur, No Rub Back Exam: Normal Inspection, Full Range of Motion Extremities: Joint Swelling, Other (Swelling, contusion, skin tear to R dorsal wrist. Skin tear to R anterior lower leg.) Neurological: Alert, Oriented, CN II-XII Intact, Normal Cognition, Normal Reflexes, No Motor/Sensory Deficits Psychiatric: Normal Affect, Normal Mood Skin Exam: Warm, Dry, Intact, Normal Color, No Rash Lymphatic: No Adenopathy ED TRAUMA EXTREMITY PROCEDURES - Laceration/Wound Repair Right Dorsal Wrist Lac/Wound Length In cm: 1 Appearance: Superficial Skin Prep: Chlorhexidine (Hibiciens), Saline Closed With: Dermabond - Splinting Right Upper Extremity Pre-Procedure NV Status: Normal Post-Procedure NV Status: Normal Splint Material: Fiberglass Splint Design: Volar Applied & Form Fitted By: Provider, Nurse Provider Post-Splint Application NV Check: NV Status Normal, Good Position Complications: Yes Course - Vital Signs Last Recorded V/S: Last Vital Signs Temp 37.2 C 01/05/21 13:26 Pulse 60 01/05/21 15:14 Resp 24 H 01/05/21 15:14 BP 117/55 L 01/05/21 15:14 Pulse Ox 89 L 01/05/21 15:14 - Orders/Labs/Meds Orders: Active Orders 24 hr Category Date Time Status Chest 2V [CR] Stat Exams 01/05/21 13:42 Taken Knee 3V Rt [CR] Stat Exams 01/05/21 13:43 Taken Wrist Comp Min 3V Rt [CR] Stat Exams 01/05/21 13:42 Taken DME for Discharge [COMM] Stat Oth 01/05/21 15:37 Ordered - Radiology Interpretation Free Text/Narrative:: R distal radius fracture noted. No obvious rib fractures noted on chest x-ray. 3 view knee x-ray is negative. Departure - Departure Time of Disposition: 16:00 Disposition: Home, Self-Care 01 Clinical Impression: Distal radius fracture, right, Contusion of knee, right, Fall - Discharge Information Instructions: Radial Fracture Referrals: Yesica Torres PA [Primary Care Provider] - Forms: ED Department Discharge Additional Instructions: Recheck in clinic in 7 days. Tylenol as needed for discomfort. Keep splint on. Sepsis Event Note (ED) - Evaluation Sepsis Screening Result: No Definite Risk - My Orders Last 24 Hours: My Active Orders 01/05/21 13:42 Chest 2V [CR] Stat Wrist Comp Min 3V Rt [CR] Stat 01/05/21 13:43 Knee 3V Rt [CR] Stat 01/05/21 15:37 DME for Discharge [COMM] Stat - Assessment/Plan Last 24 Hours: My Active Orders 01/05/21 13:42 Chest 2V [CR] Stat Wrist Comp Min 3V Rt [CR] Stat 01/05/21 13:43 Knee 3V Rt [CR] Stat 01/05/21 15:37 DME for Discharge [COMM] Stat Plan: Short arm splint was placed. Advised patient to follow-up with PCP this week. She will need to be transitioned to a cast in 7-10 days. Her options for other than conservative treatment are limited given her past medical history. Chest x- ray was unchanged. She has evidence of severe chronic lung disease, scarring, and COPD. She was observed in ER for some time and denied any increased shortness of breath/work of breathing. She was offered some oral pain medication but refused, stating they make her confused.
== END 2021-01-05 15:48 | disposition home or self-care (01) ==
LOC: LL.ED 13:25
DX: S52.591A Other fractures of lower end of right radius, initial encounter for closed fracture (principal); S80.01XA Contusion of right knee, initial encounter; I48.91 Unspecified atrial fibrillation; E78.00 Pure hypercholesterolemia, unspecified; I10 Essential (primary) hypertension; J44.9 Chronic obstructive pulmonary disease, unspecified; Z86.718 Personal history of other venous thrombosis and embolism; Z79.01 Long term (current) use of anticoagulants; Z88.4 Allergy status to anesthetic agent; Z79.82 Long term (current) use of aspirin; Z87.891 Personal history of nicotine dependence; W01.0XXA Fall on same level from slipping, tripping and stumbling without subsequent striking against object, initial encounter; W54.1XXA Struck by dog, initial encounter
CPT/HCPCS: 12001; 71046; 73110-RT; 73562-RT; 99283; 99283-25

== ENCOUNTER 2023-03-17 13:30 | Emergency (ER) | payer MEDICARE, OTHER ==
[2023-03-17 14:07] LABS: BASOPHILS ABSOLUTE AUTO 0.01 K/uL (0.00-0.20); BASOPHILS PERCENT AUTO 0.2 % (0.0-2.0); EOSINOPHILS ABSOLUTE AUTO 0.02 K/uL (0.00-0.50); EOSINOPHILS PERCENT AUTO 0.3 % (0.0-5.0); HEMOGLOBIN 12.5 g/dL (11.7-15.5); LYMPHOCYTES ABSOLUTE AUTO 0.99 K/uL (0.50-3.50); LYMPHOCYTES PERCENT AUTO 16.4 % (10.0-50.0); MEAN CORPUSCULAR HEMOGLOBIN 28.8 pg (28.2-33.3); MEAN CORPUSCULAR HGB CONC 32.1 g/dL (31.7-36.0); MEAN CORPUSCULAR VOLUME 89.9 fL (84.0-98.0); NEUTROPHILS ABSOLUTE AUTO 4.41 K/uL (1.40-7.00); NEUTROPHILS PERCENT AUTO 73.1 % (45.0-80.0); PLATELET COUNT,PLT 150 K/uL (150-350); RED BLOOD CELL COUNT 4.34 M/uL (3.77-5.09); RED CELL DISTRIBUTION WIDTH 14.7 % (11.2-14.1)
[2023-03-17 14:22] LABS: INR 4.2 (0.9-1.1); PROTHROMBIN TIME 39.8 SEC (9.0-11.1)
[2023-03-17 14:25] LABS: INFLUENZA A NAA NEGATIVE (NEGATIVE); INFLUENZA B NAA NEGATIVE (NEGATIVE); RESPIRATORY SYNCYTIAL VIR NAA NEGATIVE (NEGATIVE)
[2023-03-17 14:27] LABS: CORONAVIRUS COVID-19 NAA POSITIVE (NEGATIVE)
[2023-03-17 14:33] LABS: ALBUMIN 3.1 g/dL (3.4-5.0); ANION GAP 13.1 meq/L (7-15); BILIRUBIN TOTAL 0.8 mg/dL (0.2-1.0); CALCIUM 8.8 mg/dL (8.5-10.1); CARBON DIOXIDE,CO2 31.8 mmol/L (21.0-32.0); CREATININE 0.73 mg/dL (0.51-1.17); EST CRCL DRUG DOSING (CG) 55.31 mL/min; POTASSIUM,K 3.9 mmol/L (3.5-5.1); PROTEIN TOTAL,TP 7.2 g/dL (6.4-8.2)
[2023-03-17 18:55] VITALS: BP 119/58; PULSE 68
== END 2023-03-17 17:10 | disposition home or self-care (01) ==
LOC: LL.ED 13:30
DX: U07.1 COVID-19 (principal); I50.9 Heart failure, unspecified; I10 Essential (primary) hypertension; J44.9 Chronic obstructive pulmonary disease, unspecified; Z88.8 Allergy status to other drugs, medicaments and biological substances; Z91.041 Radiographic dye allergy status; Z79.899 Other long term (current) drug therapy; Z79.01 Long term (current) use of anticoagulants; Z87.891 Personal history of nicotine dependence
CPT/HCPCS: 0241U; 36415; 71046; 80053; 83880; 85025; 85610; 99285

== ENCOUNTER 2023-09-27 18:06 | Emergency (ER) | payer MEDICARE, OTHER ==
[2023-09-27] MEDS: Furosemide 40 MG/4 ML VIAL IVPUSH ONE (18:06)
[2023-09-27] MEDS ORDERED: Sodium Chloride 0.9% 10 ML Syringe FLUSH PRN ×2 (18:18→18:27)
[2023-09-27 18:37] LABS: BASOPHILS ABSOLUTE AUTO 0.02 K/uL (0.00-0.20); BASOPHILS PERCENT AUTO 0.1 % (0.0-2.0); EOSINOPHILS ABSOLUTE AUTO 0.23 K/uL (0.00-0.50); EOSINOPHILS PERCENT AUTO 1.1 % (0.0-5.0); HEMATOCRIT 46.7 % (34.0-46.0); HEMOGLOBIN 14.8 g/dL (11.7-15.5); LYMPHOCYTES ABSOLUTE AUTO 1.95 K/uL (0.50-3.50); LYMPHOCYTES PERCENT AUTO 9.5 % (10.0-50.0); MEAN CORPUSCULAR HEMOGLOBIN 29.1 pg (28.2-33.3); MEAN CORPUSCULAR HGB CONC 31.7 g/dL (31.7-36.0); MEAN CORPUSCULAR VOLUME 91.9 fL (84.0-98.0); MONOCYTES ABSOLUTE AUTO 1.26 K/uL (0.00-1.00); MONOCYTES PERCENT AUTO 6.1 % (2.0-14.0); NEUTROPHILS PERCENT AUTO 83.2 % (45.0-80.0); PLATELET COUNT,PLT 234 K/uL (150-350); RED BLOOD CELL COUNT 5.08 M/uL (3.77-5.09); RED CELL DISTRIBUTION WIDTH 15.2 % (11.2-14.1); WHITE BLOOD CELL COUNT,WBC 20.6 K/uL (4.0-10.2)
[2023-09-27] MEDS: methylPREDNISolone Sodium Succinate 125 MG/2 ML SDV IVPUSH ONE (18:42)
[2023-09-27 18:46] LABS: APPEARANCE,URINE CLEAR; BILIRUBIN,URINE NEGATIVE (NEGATIVE); COLOR,URINE YELLOW; GLUCOSE,URINE NEGATIVE (NEGATIVE); KETONES,URINE TRACE mg/dL (NEGATIVE); LEUKOCYTE ESTERASE,URINE NEGATIVE (NEGATIVE); NITRITE,URINE NEGATIVE (NEGATIVE); OCCULT BLOOD,URINE TRACE-INTACT (NEGATIVE); PROTEIN,URINE NEGATIVE (NEGATIVE)
[2023-09-27] MEDS: Cefepime 2 GM in Sodium Chloride 0.9% 50 ML IV ONE (18:46)
[2023-09-27 18:56] LABS: LACTIC ACID 1.8 mmol/L (0.4-2.0)
[2023-09-27 18:58] LABS: WBC,URINE 0-5 /HPF
[2023-09-27 18:59] LABS: AMORPHOUS SEDIMENT,URINE FEW /HPF (0/HPF); BACTERIA,URINE NOT SEEN /HPF (NONE TO FEW); EPITHELIAL CELLS,URINE MODERATE /LPF
[2023-09-27 19:01] LABS: INR 1.9 (0.9-1.1); PROTHROMBIN TIME 18.5 SEC (9.0-11.1)
[2023-09-27] MEDS: Acetaminophen 650 MG Supp RECTAL ONE (19:02)
[2023-09-27 19:05] LABS: ALBUMIN 3.6 g/dL (3.4-5.0); ANION GAP 6.1 meq/L (7-15); BILIRUBIN TOTAL 1.3 mg/dL (0.2-1.0); CALCIUM 9.5 mg/dL (8.5-10.1); CARBON DIOXIDE,CO2 39.6 mmol/L (21.0-32.0); CREATININE 0.72 mg/dL (0.51-1.17); EST CRCL DRUG DOSING (CG) 49.29 mL/min; MAGNESIUM 1.7 mg/dL (1.8-2.4); POTASSIUM,K 3.7 mmol/L (3.5-5.1); PROTEIN TOTAL,TP 7.7 g/dL (6.4-8.2)
[2023-09-27] MEDS: Lactated Ringers 1,000 ML IV ONE (19:08)
[2023-09-27] MEDS: Diltiazem 25 MG/5 ML SDV IVPUSH ONE (19:10)
[2023-09-27 19:25] LABS: CORONAVIRUS COVID-19 NAA NEGATIVE (NEGATIVE); INFLUENZA A NAA NEGATIVE (NEGATIVE); INFLUENZA B NAA NEGATIVE (NEGATIVE); RESPIRATORY SYNCYTIAL VIR NAA NEGATIVE (NEGATIVE)
[2023-09-27] MEDS: methylPREDNISolone Sodium Succinate 125 MG/2 ML SDV ONE (20:41)
[2023-09-27] MEDS: Furosemide 40 MG/4 ML VIAL ONE (20:42)
[2023-09-27] MEDS: Diltiazem 25 MG/5 ML SDV ONE (20:42)
[2023-09-27] MEDS: Cefepime 2 GM Vial ONE (20:42)
[2023-09-27 20:50] VITALS: BP 142/73; PULSE 149
== END 2023-09-27 19:09 ==
LOC: LL.ED 18:06
DX: A41.9 Sepsis, unspecified organism (principal); R65.20 Severe sepsis without septic shock; J96.01 Acute respiratory failure with hypoxia; R06.03 Acute respiratory distress; R50.9 Fever, unspecified; I48.92 Unspecified atrial flutter; R79.89 Other specified abnormal findings of blood chemistry; D72.829 Elevated white blood cell count, unspecified; Z91.041 Radiographic dye allergy status; Z88.8 Allergy status to other drugs, medicaments and biological substances; Z79.01 Long term (current) use of anticoagulants; Z79.899 Other long term (current) drug therapy
CPT/HCPCS: 0241U; 36415; 51702; 71045; 80053; 81001; 83605; 83735; 83880; 84484; 85025; 85610; 87040; 93005; 93010; 96365; 96375; 99285; A9270; J0692; J1940; J2919; J3370; J3490; J7050; J7120

== ENCOUNTER 2023-10-27 11:00 | Observation (INO) | payer MEDICARE, OTHER ==
[2023-10-27] MEDS ORDERED: Sodium Chloride 0.9% 10 ML Syringe FLUSH PRN (11:22)
[2023-10-27 11:35] LABS: BASOPHILS ABSOLUTE AUTO 0.01 K/uL (0.00-0.20); BASOPHILS PERCENT AUTO 0.1 % (0.0-2.0); EOSINOPHILS ABSOLUTE AUTO 0.17 K/uL (0.00-0.50); EOSINOPHILS PERCENT AUTO 2.2 % (0.0-5.0); HEMATOCRIT 36.8 % (34.0-46.0); HEMOGLOBIN 11.5 g/dL (11.7-15.5); LYMPHOCYTES ABSOLUTE AUTO 1.79 K/uL (0.50-3.50); LYMPHOCYTES PERCENT AUTO 22.7 % (10.0-50.0); MEAN CORPUSCULAR HEMOGLOBIN 28.6 pg (28.2-33.3); MEAN CORPUSCULAR HGB CONC 31.3 g/dL (31.7-36.0); MEAN CORPUSCULAR VOLUME 91.5 fL (84.0-98.0); MONOCYTES ABSOLUTE AUTO 0.85 K/uL (0.00-1.00); MONOCYTES PERCENT AUTO 10.8 % (2.0-14.0); NEUTROPHILS ABSOLUTE AUTO 5.06 K/uL (1.40-7.00); NEUTROPHILS PERCENT AUTO 64.2 % (45.0-80.0); PLATELET COUNT,PLT 194 K/uL (150-350); RED BLOOD CELL COUNT 4.02 M/uL (3.77-5.09); RED CELL DISTRIBUTION WIDTH 14.9 % (11.2-14.1); WHITE BLOOD CELL COUNT,WBC 7.9 K/uL (4.0-10.2)
[2023-10-27 12:07] LABS: ALBUMIN 3.1 g/dL (3.4-5.0); BILIRUBIN TOTAL 1.1 mg/dL (0.2-1.0); CALCIUM 9.4 mg/dL (8.5-10.1); CREATININE 0.84 mg/dL (0.51-1.17); EST CRCL DRUG DOSING (CG) 48.06 mL/min; PROTEIN TOTAL,TP 7.2 g/dL (6.4-8.2)
[2023-10-27 12:23] LABS: POTASSIUM,K 2.9 mmol/L (3.5-5.1)
[2023-10-27 12:24] LABS: ANION GAP 5.1 meq/L (7-15); CARBON DIOXIDE,CO2 45.8 mmol/L (21.0-32.0)
[2023-10-27] MEDS: Potassium Bicarbonate/Cit Ac 20 MEQ Effervescent Tab PO ONE (12:36)
[2023-10-27 12:44] LABS: CORONAVIRUS COVID-19 NAA NEGATIVE (NEGATIVE); INFLUENZA A NAA NEGATIVE (NEGATIVE); INFLUENZA B NAA NEGATIVE (NEGATIVE); RESPIRATORY SYNCYTIAL VIR NAA NEGATIVE (NEGATIVE)
[2023-10-27] MEDS ORDERED: Levalbuterol HCl 1.25 MG/3 ML Neb INH PRN (13:37)
[2023-10-27] MEDS ORDERED: Non-Formulary Medication 1 Each (Levalbuterol Tartrate [Xopenex Hfa] 15 GM Inhaler) INH PRN (13:37)
[2023-10-27] MEDS: Warfarin 2.5 MG Tab PO SCH (17:46)
[2023-10-27] MEDS: Potassium Chloride 20 MEQ Tab.ER PO SCH (17:46)
[2023-10-27] MEDS: Ezetimibe 10 MG Tab PO SCH (17:46)
[2023-10-27] MEDS: Sotalol 80 MG Tab PO SCH (19:39)
[2023-10-27] MEDS: Budesonide 0.25 MG/2 ML Neb Susp INH SCH (19:40)
[2023-10-27] MEDS: Arformoterol 15 MCG/2 ML Neb Soln INH SCH (19:40)
[2023-10-27] MEDS: Amoxicillin/Clavulanate K 875-125 MG Tab PO SCH (20:06)
[2023-10-28] MEDS: Furosemide 20 MG Tab PO SCH (07:25)
[2023-10-28] MEDS: Pravastatin 20 MG Tab PO SCH ×2 (08:23→17:59)
[2023-10-28 08:28] LABS: BASOPHILS ABSOLUTE AUTO 0.02 K/uL (0.00-0.20); BASOPHILS PERCENT AUTO 0.2 % (0.0-2.0); EOSINOPHILS ABSOLUTE AUTO 0.29 K/uL (0.00-0.50); EOSINOPHILS PERCENT AUTO 3.6 % (0.0-5.0); HEMATOCRIT 38.5 % (34.0-46.0); HEMOGLOBIN 11.8 g/dL (11.7-15.5); LYMPHOCYTES ABSOLUTE AUTO 1.59 K/uL (0.50-3.50); LYMPHOCYTES PERCENT AUTO 19.8 % (10.0-50.0); MEAN CORPUSCULAR HEMOGLOBIN 28.6 pg (28.2-33.3); MEAN CORPUSCULAR HGB CONC 30.6 g/dL (31.7-36.0); MEAN CORPUSCULAR VOLUME 93.4 fL (84.0-98.0); MONOCYTES PERCENT AUTO 11.2 % (2.0-14.0); NEUTROPHILS ABSOLUTE AUTO 5.22 K/uL (1.40-7.00); NEUTROPHILS PERCENT AUTO 65.2 % (45.0-80.0); PLATELET COUNT,PLT 217 K/uL (150-350); RED BLOOD CELL COUNT 4.12 M/uL (3.77-5.09); RED CELL DISTRIBUTION WIDTH 14.9 % (11.2-14.1)
[2023-10-28 08:37] LABS: CALCIUM 9.2 mg/dL (8.5-10.1); CREATININE 0.81 mg/dL (0.51-1.17); EST CRCL DRUG DOSING (CG) 49.84 mL/min; POTASSIUM,K 3.5 mmol/L (3.5-5.1)
[2023-10-28 08:40] LABS: ANION GAP 5.9 meq/L (7-15); CARBON DIOXIDE,CO2 43.6 mmol/L (21.0-32.0)
[2023-10-28] MEDS: guaiFENesin 600 MG Tab.ER PO SCH (11:07)
[2023-10-28] MEDS: Warfarin 5 MG Tab PO SCH (17:59)
[2023-10-28] MEDS: predniSONE 20 MG Tab PO SCH (17:59)
[2023-10-28] MEDS ORDERED: Albuterol/Ipratropium 3.0-0.5 MG/3 ML Neb Soln NEB PRN (18:40)
[2023-10-29 09:03] LABS: INR 3.7
[2023-10-29 17:19] VITALS: BP 112/71; PULSE 109
== END 2023-10-29 10:50 | disposition home or self-care (01) ==
LOC: LL.ED 11:00 → LL.MS 13:04
PROVIDERS: ADMIT Physician Assistant; ATTEND Physician Assistant
DX: I50.9 Heart failure, unspecified (principal); J84.10 Pulmonary fibrosis, unspecified; I48.92 Unspecified atrial flutter; J43.1 Panlobular emphysema; F32.A Depression, unspecified; F41.9 Anxiety disorder, unspecified; Z79.01 Long term (current) use of anticoagulants; Z79.899 Other long term (current) drug therapy
CPT/HCPCS: 0241U; 36415; 36416; 71045; 80048; 80053; 83880; 84484; 85025; 85610; 93005; 99285; A9270-GY; G0378; J3490; J7512

== ENCOUNTER 2023-11-19 15:25 | Inpatient (IN) | payer MEDICARE, OTHER ==
[2023-11-19] MEDS ORDERED: Sodium Chloride 0.9% 10 ML Syringe FLUSH PRN (15:26)
[2023-11-19 15:46] LABS: BASOPHILS ABSOLUTE AUTO 0.02 K/uL (0.00-0.20); BASOPHILS PERCENT AUTO 0.2 % (0.0-2.0); EOSINOPHILS ABSOLUTE AUTO 0.24 K/uL (0.00-0.50); HEMATOCRIT 39.3 % (34.0-46.0); HEMOGLOBIN 12.1 g/dL (11.7-15.5); LYMPHOCYTES ABSOLUTE AUTO 0.99 K/uL (0.50-3.50); LYMPHOCYTES PERCENT AUTO 12.2 % (10.0-50.0); MEAN CORPUSCULAR HEMOGLOBIN 28.5 pg (28.2-33.3); MEAN CORPUSCULAR HGB CONC 30.8 g/dL (31.7-36.0); MEAN CORPUSCULAR VOLUME 92.7 fL (84.0-98.0); MONOCYTES ABSOLUTE AUTO 0.53 K/uL (0.00-1.00); MONOCYTES PERCENT AUTO 6.5 % (2.0-14.0); NEUTROPHILS ABSOLUTE AUTO 6.34 K/uL (1.40-7.00); NEUTROPHILS PERCENT AUTO 78.1 % (45.0-80.0); PLATELET COUNT,PLT 189 K/uL (150-350); RED BLOOD CELL COUNT 4.24 M/uL (3.77-5.09); RED CELL DISTRIBUTION WIDTH 15.5 % (11.2-14.1); WHITE BLOOD CELL COUNT,WBC 8.1 K/uL (4.0-10.2)
[2023-11-19] MEDS: Bumetanide 2.5 MG/10 ML MDV IVPUSH ONE ×2 (15:52→19:21)
[2023-11-19 16:00] LABS: INR 1.2 (0.9-1.1); PROTHROMBIN TIME 11.5 SEC (9.0-11.1)
[2023-11-19] MEDS: Lactated Ringers 1,000 ML IV ONE (16:00)
[2023-11-19 16:11] LABS: LACTIC ACID 0.9 mmol/L (0.4-2.0)
[2023-11-19 16:46] LABS: ALANINE AMINOTRANSFERASE,ALT 17 U/L (12-78); ALBUMIN 2.8 g/dL (3.4-5.0); ALKALINE PHOSPHATASE 81 IU/L (46-116); ASPARTATE AMNIOTRANSFERASE,AST 18 U/L (15-37); BILIRUBIN TOTAL 1.6 mg/dL (0.2-1.0); BLOOD UREA NITROGEN,BUN 19 mg/dL (7-18); CALCIUM 9.3 mg/dL (8.5-10.1); CHLORIDE,CL 95 mmol/L (98-107); CREATININE 0.84 mg/dL (0.51-1.17); GLUCOSE RANDOM 113 mg/dL (70-99); MAGNESIUM 1.8 mg/dL (1.8-2.4); POTASSIUM,K 3.9 mmol/L (3.5-5.1); PRO B-TYPE NATRIUR PEPT,BNPPRO 2182 pg/mL (0-125); PROTEIN TOTAL,TP 7.5 g/dL (6.4-8.2); SODIUM,NA 139 mmol/L (136-145)
[2023-11-19 16:47] LABS: ANION GAP 5.4 meq/L (7-15); CARBON DIOXIDE,CO2 42.5 mmol/L (21.0-32.0); ESTIMATED GFR 70 mL/min (>=60)
[2023-11-19] MEDS: Sodium Chloride 0.9% 10 ML Syringe FLUSH PRN (19:22)
[2023-11-19] MEDS ORDERED: Non-Formulary Medication 1 Each (Levalbuterol Tartrate [Xopenex Hfa] 15 GM Inhaler) INH PRN (21:12)
[2023-11-19] MEDS: Sotalol 80 MG Tab PO SCH (21:56)
[2023-11-19] MEDS: Apixaban 5 MG Tab PO SCH (21:57)
[2023-11-19] MEDS: Budesonide 0.25 MG/2 ML Neb Susp INH SCH (21:57)
[2023-11-19] MEDS: Arformoterol 15 MCG/2 ML Neb Soln INH SCH (21:57)
[2023-11-20 07:37] LABS: BASOPHILS ABSOLUTE AUTO 0.03 K/uL (0.00-0.20); BASOPHILS PERCENT AUTO 0.4 % (0.0-2.0); EOSINOPHILS PERCENT AUTO 6.7 % (0.0-5.0); HEMATOCRIT 35.2 % (34.0-46.0); HEMOGLOBIN 10.6 g/dL (11.7-15.5); LYMPHOCYTES ABSOLUTE AUTO 1.12 K/uL (0.50-3.50); LYMPHOCYTES PERCENT AUTO 15.1 % (10.0-50.0); MEAN CORPUSCULAR HEMOGLOBIN 28.3 pg (28.2-33.3); MEAN CORPUSCULAR HGB CONC 30.1 g/dL (31.7-36.0); MEAN CORPUSCULAR VOLUME 93.9 fL (84.0-98.0); MONOCYTES ABSOLUTE AUTO 1.07 K/uL (0.00-1.00); MONOCYTES PERCENT AUTO 14.4 % (2.0-14.0); NEUTROPHILS PERCENT AUTO 63.4 % (45.0-80.0); PLATELET COUNT,PLT 172 K/uL (150-350); RED BLOOD CELL COUNT 3.75 M/uL (3.77-5.09); RED CELL DISTRIBUTION WIDTH 15.3 % (11.2-14.1); WHITE BLOOD CELL COUNT,WBC 7.4 K/uL (4.0-10.2)
[2023-11-20] MEDS: Zinc (Zinc Gluconate) 50 MG Tab PO SCH (07:37)
[2023-11-20] MEDS: predniSONE 5 MG Tab PO SCH (07:37)
[2023-11-20] MEDS: Digoxin 125 MCG Tab PO SCH (07:37)
[2023-11-20] MEDS: Potassium Chloride 20 MEQ Tab.ER PO SCH (07:38)
[2023-11-20] MEDS: Multivitamin Tab PO SCH (07:38)
[2023-11-20] MEDS: Cholecalciferol (Vitamin D3) 5,000 UNIT Tab PO SCH (07:38)
[2023-11-20] MEDS ORDERED: Arformoterol 15 MCG/2 ML Neb Soln INH SCH ×2 (08:00)
[2023-11-20] MEDS ORDERED: Budesonide 0.25 MG/2 ML Neb Susp INH SCH ×2 (08:00)
[2023-11-20] MEDS ORDERED: Sotalol 80 MG Tab PO SCH (08:00)
[2023-11-20 08:04] LABS: ALBUMIN 2.4 g/dL (3.4-5.0); BILIRUBIN TOTAL 1.2 mg/dL (0.2-1.0); CALCIUM 8.7 mg/dL (8.5-10.1); CREATININE 0.74 mg/dL (0.51-1.17); EST CRCL DRUG DOSING (CG) 58.96 mL/min; MAGNESIUM 1.5 mg/dL (1.8-2.4); POTASSIUM,K 3.5 mmol/L (3.5-5.1); PROTEIN TOTAL,TP 6.4 g/dL (6.4-8.2)
[2023-11-20 08:14] LABS: ANION GAP 2.9 meq/L (7-15)
[2023-11-20 08:16] LABS: CARBON DIOXIDE,CO2 44.6 mmol/L (21.0-32.0)
[2023-11-20] MEDS: Magnesium Sulfate/Water 2 GM in Premix Bag 1 BAG IV ONE (13:28)
[2023-11-20] MEDS: Bumetanide 2.5 MG/10 ML MDV IVPUSH ONE (13:29)
[2023-11-20] MEDS: Potassium Bicarbonate/Cit Ac 20 MEQ Effervescent Tab PO ONE (13:53)
[2023-11-20] MEDS: Albuterol/Ipratropium 3.0-0.5 MG/3 ML Neb Soln NEB ONE (13:53)
[2023-11-20] MEDS: methylPREDNISolone Sodium Succinate 40 MG/1 ML SDV IVPUSH SCH (15:28)
[2023-11-20] MEDS: Pravastatin 20 MG Tab PO SCH (17:22)
[2023-11-20] MEDS: Ezetimibe 10 MG Tab PO SCH (17:24)
[2023-11-21 07:41] LABS: BASOPHILS ABSOLUTE AUTO 0.01 K/uL (0.00-0.20); BASOPHILS PERCENT AUTO 0.1 % (0.0-2.0); EOSINOPHILS ABSOLUTE AUTO 0.02 K/uL (0.00-0.50); EOSINOPHILS PERCENT AUTO 0.2 % (0.0-5.0); HEMATOCRIT 35.2 % (34.0-46.0); HEMOGLOBIN 10.8 g/dL (11.7-15.5); LYMPHOCYTES ABSOLUTE AUTO 1.33 K/uL (0.50-3.50); LYMPHOCYTES PERCENT AUTO 15.9 % (10.0-50.0); MEAN CORPUSCULAR HEMOGLOBIN 28.5 pg (28.2-33.3); MEAN CORPUSCULAR HGB CONC 30.7 g/dL (31.7-36.0); MEAN CORPUSCULAR VOLUME 92.9 fL (84.0-98.0); MONOCYTES ABSOLUTE AUTO 0.78 K/uL (0.00-1.00); MONOCYTES PERCENT AUTO 9.3 % (2.0-14.0); NEUTROPHILS ABSOLUTE AUTO 6.25 K/uL (1.40-7.00); NEUTROPHILS PERCENT AUTO 74.5 % (45.0-80.0); PLATELET COUNT,PLT 224 K/uL (150-350); RED BLOOD CELL COUNT 3.79 M/uL (3.77-5.09); WHITE BLOOD CELL COUNT,WBC 8.4 K/uL (4.0-10.2)
[2023-11-21 07:57] LABS: ALBUMIN 2.6 g/dL (3.4-5.0); BILIRUBIN TOTAL 0.6 mg/dL (0.2-1.0); CALCIUM 9.3 mg/dL (8.5-10.1); CREATININE 0.76 mg/dL (0.51-1.17); EST CRCL DRUG DOSING (CG) 57.41 mL/min; POTASSIUM,K 4.6 mmol/L (3.5-5.1); PROTEIN TOTAL,TP 6.9 g/dL (6.4-8.2)
[2023-11-21 08:08] LABS: ANION GAP 4.3 meq/L (7-15)
[2023-11-21 08:10] LABS: CARBON DIOXIDE,CO2 44.3 mmol/L (21.0-32.0)
[2023-11-21] MEDS: Furosemide 20 MG/2 ML VIAL IVPUSH ONE (17:14)
[2023-11-22 07:31] LABS: BASOPHILS ABSOLUTE AUTO 0.02 K/uL (0.00-0.20); BASOPHILS PERCENT AUTO 0.2 % (0.0-2.0); EOSINOPHILS ABSOLUTE AUTO 0.02 K/uL (0.00-0.50); EOSINOPHILS PERCENT AUTO 0.2 % (0.0-5.0); HEMATOCRIT 35.4 % (34.0-46.0); HEMOGLOBIN 10.8 g/dL (11.7-15.5); LYMPHOCYTES ABSOLUTE AUTO 1.41 K/uL (0.50-3.50); LYMPHOCYTES PERCENT AUTO 14.7 % (10.0-50.0); MEAN CORPUSCULAR HEMOGLOBIN 28.4 pg (28.2-33.3); MEAN CORPUSCULAR HGB CONC 30.5 g/dL (31.7-36.0); MEAN CORPUSCULAR VOLUME 93.2 fL (84.0-98.0); MONOCYTES ABSOLUTE AUTO 0.99 K/uL (0.00-1.00); MONOCYTES PERCENT AUTO 10.4 % (2.0-14.0); NEUTROPHILS ABSOLUTE AUTO 7.12 K/uL (1.40-7.00); NEUTROPHILS PERCENT AUTO 74.5 % (45.0-80.0); PLATELET COUNT,PLT 252 K/uL (150-350); RED CELL DISTRIBUTION WIDTH 15.1 % (11.2-14.1); WHITE BLOOD CELL COUNT,WBC 9.6 K/uL (4.0-10.2)
[2023-11-22 08:06] LABS: ALBUMIN 2.6 g/dL (3.4-5.0); BILIRUBIN TOTAL 0.5 mg/dL (0.2-1.0); CREATININE 0.63 mg/dL (0.51-1.17); EST CRCL DRUG DOSING (CG) 69.26 mL/min; POTASSIUM,K 4.3 mmol/L (3.5-5.1); PROTEIN TOTAL,TP 6.8 g/dL (6.4-8.2)
[2023-11-22 08:09] LABS: ANION GAP 1.6 meq/L (7-15)
[2023-11-22 08:10] LABS: CARBON DIOXIDE,CO2 44.7 mmol/L (21.0-32.0)
[2023-11-23] MEDS: Furosemide 40 MG Tab PO SCH ×2 (15:36→16:03)
[2023-11-23] MEDS: Potassium Chloride 20 MEQ Tab.ER PO SCH (16:03)
[2023-11-23] MEDS: Sotalol 80 MG Tab ONE (19:38)
[2023-11-24] MEDS: predniSONE 20 MG Tab PO SCH (07:39)
[2023-11-24 11:28] LABS: CREATININE 0.66 mg/dL (0.51-1.17); EST CRCL DRUG DOSING (CG) 66.11 mL/min; POTASSIUM,K 4.5 mmol/L (3.5-5.1)
[2023-11-24 11:38] LABS: ANION GAP 5.5 meq/L (7-15)
[2023-11-24] MEDS: Levalbuterol HCl 1.25 MG/3 ML Neb INH PRN (15:27)
[2023-11-24] MEDS: Bumetanide 2.5 MG/10 ML MDV IVPUSH ONE (16:24)
[2023-11-25 07:28] LABS: BASOPHILS ABSOLUTE AUTO 0.03 K/uL (0.00-0.20); BASOPHILS PERCENT AUTO 0.3 % (0.0-2.0); EOSINOPHILS ABSOLUTE AUTO 0.71 K/uL (0.00-0.50); EOSINOPHILS PERCENT AUTO 6.5 % (0.0-5.0); HEMATOCRIT 38.1 % (34.0-46.0); HEMOGLOBIN 11.3 g/dL (11.7-15.5); LYMPHOCYTES ABSOLUTE AUTO 1.72 K/uL (0.50-3.50); LYMPHOCYTES PERCENT AUTO 15.8 % (10.0-50.0); MEAN CORPUSCULAR HGB CONC 29.7 g/dL (31.7-36.0); MEAN CORPUSCULAR VOLUME 94.5 fL (84.0-98.0); MONOCYTES ABSOLUTE AUTO 1.32 K/uL (0.00-1.00); MONOCYTES PERCENT AUTO 12.1 % (2.0-14.0); NEUTROPHILS ABSOLUTE AUTO 7.13 K/uL (1.40-7.00); NEUTROPHILS PERCENT AUTO 65.3 % (45.0-80.0); PLATELET COUNT,PLT 321 K/uL (150-350); RED BLOOD CELL COUNT 4.03 M/uL (3.77-5.09); RED CELL DISTRIBUTION WIDTH 15.5 % (11.2-14.1); WHITE BLOOD CELL COUNT,WBC 10.9 K/uL (4.0-10.2)
[2023-11-25 08:12] LABS: CALCIUM 9.2 mg/dL (8.5-10.1); CREATININE 0.71 mg/dL (0.51-1.17); EST CRCL DRUG DOSING (CG) 61.46 mL/min; POTASSIUM,K 4.7 mmol/L (3.5-5.1)
[2023-11-25 08:29] LABS: ANION GAP -0.2 meq/L (7-15); CARBON DIOXIDE,CO2 50.9 mmol/L (21.0-32.0)
[2023-11-26 08:09] LABS: CALCIUM 9.2 mg/dL (8.5-10.1); CREATININE 0.71 mg/dL (0.51-1.17); EST CRCL DRUG DOSING (CG) 61.46 mL/min; POTASSIUM,K 4.1 mmol/L (3.5-5.1)
[2023-11-26 08:25] LABS: ANION GAP -6.2 meq/L (7-15); CARBON DIOXIDE,CO2 55.3 mmol/L (21.0-32.0)
[2023-11-27] MEDS: Furosemide 40 MG Tab PO SCH (08:09)
[2023-11-27] MEDS: predniSONE 20 MG Tab PO SCH (08:10)
[2023-11-27] MEDS: Tiotropium Bromide 4 GM Inhalation Spray (2.5mcg/1 dose; 10 doses) INH SCH (08:43)
[2023-11-27] MEDS: Doxycycline Monohydrate 100 MG Cap PO SCH (14:16)
[2023-11-28 07:42] LABS: BASOPHILS ABSOLUTE AUTO 0.02 K/uL (0.00-0.20); BASOPHILS PERCENT AUTO 0.2 % (0.0-2.0); EOSINOPHILS ABSOLUTE AUTO 0.58 K/uL (0.00-0.50); EOSINOPHILS PERCENT AUTO 6.7 % (0.0-5.0); HEMATOCRIT 37.3 % (34.0-46.0); HEMOGLOBIN 11.2 g/dL (11.7-15.5); LYMPHOCYTES ABSOLUTE AUTO 1.32 K/uL (0.50-3.50); LYMPHOCYTES PERCENT AUTO 15.2 % (10.0-50.0); MEAN CORPUSCULAR VOLUME 93.3 fL (84.0-98.0); MONOCYTES PERCENT AUTO 13.9 % (2.0-14.0); NEUTROPHILS ABSOLUTE AUTO 5.54 K/uL (1.40-7.00); PLATELET COUNT,PLT 322 K/uL (150-350); RED CELL DISTRIBUTION WIDTH 15.8 % (11.2-14.1); WHITE BLOOD CELL COUNT,WBC 8.7 K/uL (4.0-10.2)
[2023-11-28 08:31] LABS: CALCIUM 9.3 mg/dL (8.5-10.1); CREATININE 0.69 mg/dL (0.51-1.17); EST CRCL DRUG DOSING (CG) 63.24 mL/min; POTASSIUM,K 3.6 mmol/L (3.5-5.1)
[2023-11-28 08:36] LABS: ANION GAP 3.6 meq/L (7-15)
[2023-11-29 12:25] VITALS: BP 119/48; PULSE 72
== END 2023-11-29 16:11 | disposition home or self-care (01) | DRG 292 ==
LOC: LL.ED 15:25 → LL.MS 17:35
PROVIDERS: ADMIT Physician Assistant; ATTEND Physician Assistant
DX: I50.9 Heart failure, unspecified (principal); I48.92 Unspecified atrial flutter; J44.1 Chronic obstructive pulmonary disease with (acute) exacerbation; R06.02 Shortness of breath; R79.89 Other specified abnormal findings of blood chemistry; J43.1 Panlobular emphysema; I48.91 Unspecified atrial fibrillation; Z79.52 Long term (current) use of systemic steroids; Z79.51 Long term (current) use of inhaled steroids; M19.90 Unspecified osteoarthritis, unspecified site; M81.0 Age-related osteoporosis without current pathological fracture; Z91.041 Radiographic dye allergy status; D64.9 Anemia, unspecified; F41.9 Anxiety disorder, unspecified; E78.2 Mixed hyperlipidemia; J84.10 Pulmonary fibrosis, unspecified; F32.A Depression, unspecified; E83.42 Hypomagnesemia; I25.10 Atherosclerotic heart disease of native coronary artery without angina pectoris; R09.02 Hypoxemia; Z88.1 Allergy status to other antibiotic agents; Z88.0 Allergy status to penicillin; Z88.8 Allergy status to other drugs, medicaments and biological substances; Z79.01 Long term (current) use of anticoagulants; Z79.899 Other long term (current) drug therapy; Z98.890 Other specified postprocedural states; Z87.891 Personal history of nicotine dependence
CPT/HCPCS: 36415; 71045; 71046; 80048; 80053; 80162; 83605; 83735; 83880; 84132; 84484; 85025; 85610; 93005; 93010; 94640; 96374; 97165-GO; 97530-GO; 97535-GO; 99223; 99232; 99233; 99238; 99285-25; A9270-GY; J1940; J2919; J3475; J3490; J7120; J7512; J7612-GY; J7620-GY

== ENCOUNTER 2025-03-28 12:47 | Emergency (ER) | payer MEDICARE | END 2025-03-28 15:45 | disposition EXP | LOC: LL.ED 12:47 | DX: I46.9 Cardiac arrest, cause unspecified (principal); I48.91 Unspecified atrial fibrillation; Z88.8 Allergy status to other drugs, medicaments and biological substances; Z88.1 Allergy status to other antibiotic agents; Z79.899 Other long term (current) drug therapy; Z79.01 Long term (current) use of anticoagulants | CPT/HCPCS: 92950; 99285-25; J0168 ==